=== PATIENT | female | born 1935 | race Caucasian/White ===

== ENCOUNTER 2016-11-25 10:13 | Inpatient (IN) | payer MEDICARE, OTHER ==
[~2016-11-25] VITALS: Ht 160 cm; Wt 55.2 kg
[2016-11-25 10:15] VITALS: BP 137/72; PULSE 89; RESP 17; TEMP 98.2; O2SAT 100
[2016-11-25] MEDS ORDERED: METO100T PO (10:33)
[2016-11-25] MEDS ORDERED: ESOM1CAP16 PO (10:33)
[2016-11-25] MEDS ORDERED: XARE15TA PO (10:33)
[2016-11-25] MEDS ORDERED: METF500T PO (10:33)
[2016-11-25] MEDS ORDERED: SIMV40TA PO (10:33)
[2016-11-25] MEDS ORDERED: FURO40TA PO (10:33)
[2016-11-25] MEDS ORDERED: CART120C PO (10:33)
--- NOTE | 2016-11-25 10:52 | PD ---
HPI Chief Complaint: Respiratory Symptoms Time Seen by Provider: 10:27 Travel History International Travel<30 days: No Contact w/Intl Traveler<30days: No Traveled to known affect area: No History of Present Illness HPI 81yo F with PMH of afib on xarelto, ?CHF on furosemide, s/p pacemaker presents to the ED with increasing sob for the last few days. Pt also with increasing bilateral lower ext edema for few days. Takes furosemide 40mg daily. Pt has not had good appetite and has been having nonbloody diarrhea. Denies any fever , cough, chest pain, n/v, abdominal pain, focal weakness or numbness. 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 Pt was seen at [facility] on 11/17/16 and discharged from ED. PFSH Past Medical History Atrial Fibrillation: Yes Heart Rhythm Problems: Yes High Cholesterol: Yes Congestive Heart Failure: Yes Diabetes: Yes Patient Takes Glucophage: Yes Hypertension: Yes Past Surgical History Cardiac Surgery: Yes (pacemaker ) Cholecystectomy: Yes Hysterectomy: Yes Pacemaker: Yes Social History Alcohol Use: No Tobacco Use: No Substance Use: No Allergies-Medications (Allergen,Severity, Reaction): Coded Allergies: Ibuprofen (Verified Allergy, Severe, 11/25/16) Codeine (Verified Allergy, Mild, 11/25/16) Reported Meds & Prescriptions Reported Meds & Active Scripts Active Reported Simvastatin 40 Mg Tab 40 Mg PO HS Xarelto (Rivaroxaban) 15 Mg Tab 15 Mg PO DAILY Cartia Xt (Diltiazem ER 24 HR) 120 Mg Caper 120 Mg PO DAILY Esomeprazole DR 40 Mg Capdr 40 Mg PO DAILY Metformin (Metformin HCl) 500 Mg Tab 500 Mg PO BIDPC With meals Furosemide 40 Mg Tab 40 Mg PO DAILY Metoprolol Tartrate 100 Mg Tab 100 Mg PO BID Review of Systems Except as stated in HPI: all other systems reviewed are Neg Physical Exam Narrative GENERAL: 81yo F in mild distress. SKIN: Focused skin assessment warm/dry. HEAD: Atraumatic. Normocephalic. EYES: Pupils equal and round. No scleral icterus. No injection or drainage. ENT: No nasal bleeding or discharge. Mucous membranes pink and moist. NECK: Trachea midline. No JVD. CARDIOVASCULAR: Regular rate and rhythm. No murmur appreciated. RESPIRATORY: + accessory muscle use. crackles in bilateral bases. GASTROINTESTINAL: Abdomen soft, non-tender, nondistended. MUSCULOSKELETAL: No obvious deformities. No clubbing. No cyanosis. +Bilateral lower ext edema. NEUROLOGICAL: Awake and alert. No obvious cranial nerve deficits. Motor grossly within normal limits. Normal speech. PSYCHIATRIC: Appropriate mood and affect; insight and judgment normal. Data Data Last Documented VS Vital Signs Date Time Temp Pulse Resp B/P Pulse Ox O2 Delivery O2 Flow Rate FiO2 11/25/16 11:04 95 Nasal Cannula 3 11/25/16 10:24 110 26 11/25/16 10:15 98.2 137/72 Orders Electrocardiogram (11/25/16 ) Complete Blood Count With Diff (11/25/16 10:47) Basic Metabolic Panel (Bmp) (11/25/16 10:47) B-Type Natriuretic Peptide (11/25/16 10:47) Act Partial Throm Time (Ptt) (11/25/16 10:47) Prothrombin Time / Inr (Pt) (11/25/16 10:47) Magnesium (Mg) (11/25/16 10:47) Ckmb (Isoenzyme) Profile (11/25/16 10:47) Troponin I (11/25/16 10:47) Arterial Blood Gas (Abg) (11/25/16 10:47) Urinalysis - C+S If Indicated (11/25/16 10:47) Iv Access Insert/Monitor (11/25/16 10:47) Ecg Monitoring (11/25/16 10:47) Oximetry (11/25/16 10:47) Oxygen Administration (11/25/16 10:47) Chest, Single Ap (11/25/16 10:47) Furosemide Inj (Lasix Inj) (11/25/16 11:00) Urinary Catheter Insert/Apply (11/25/16 12:53) Admit Order (Ed Use Only) (11/25/16 12:56) Admit To Inpatient (11/25/16 ) Vital Signs (Adult) Q4H (11/25/16 12:55) Activity Oob Ad [place] (11/25/16 12:55) Acquisitions Assistant / Telemetry .CONTINUOUS (11/25/16 12:55) Intake + Output HUMBERTO.QSHIFT (11/25/16 12:55) Diet Heart Healthy (11/25/16 Lunch) Sodium Chloride 0.9% Flush (Ns Flush) (11/25/16 13:00) Sodium Chloride 0.9% Flush (Ns Flush) (11/25/16 21:00) Scd Bilateral/Knee High HUMBERTO.BID (11/25/16 12:55) Alfredo Bilateral/Knee High HUMBERTO.QSHIFT (11/25/16 12:55) Naloxone Inj (Narcan Inj) (11/25/16 13:00) Inpatient Certification (11/25/16 ) Furosemide Inj (Lasix Inj) (11/26/16 09:00) Labs Laboratory Tests Test 11/25/16 11/25/16 11/25/16 11:00 11:35 12:00 White Blood Count 10.8 TH/MM3 Red Blood Count 4.07 MIL/MM3 Hemoglobin 10.9 GM/DL Hematocrit 35.1 % Mean Corpuscular Volume 86.3 FL Mean Corpuscular Hemoglobin 26.9 PG Mean Corpuscular Hemoglobin 31.1 % Concent Red Cell Distribution Width 18.3 % Platelet Count 276 TH/MM3 Mean Platelet Volume 10.1 FL Neutrophils (%) (Auto) 74.5 % Lymphocytes (%) (Auto) 12.7 % Monocytes (%) (Auto) 11.5 % Eosinophils (%) (Auto) 0.8 % Basophils (%) (Auto) 0.5 % Neutrophils # (Auto) 8.0 TH/MM3 Lymphocytes # (Auto) 1.4 TH/MM3 Monocytes # (Auto) 1.2 TH/MM3 Eosinophils # (Auto) 0.1 TH/MM3 Basophils # (Auto) 0.1 TH/MM3 CBC Comment DIFF FINAL Differential Comment Prothrombin Time 24.6 SEC Prothromb Time International 2.2 RATIO Ratio Activated Partial 41.2 SEC Thromboplast Time Sodium Level 138 MEQ/L Potassium Level 4.8 MEQ/L Chloride Level 101 MEQ/L Carbon Dioxide Level 26.4 MEQ/L Anion Gap 11 MEQ/L Blood Urea Nitrogen 33 MG/DL Creatinine 1.75 MG/DL Estimat Glomerular Filtration 28 ML/MIN Rate Random Glucose 114 MG/DL Calcium Level 8.8 MG/DL Magnesium Level 1.7 MG/DL Total Creatine Kinase 70 U/L Troponin I LESS THAN 0.02 NG/ML B-Type Natriuretic Peptide 683 PG/ML Blood Gas Puncture Site RT BRACHIAL Blood Gas Patient Temperature 98.6 Blood Gas HCO3 25 mmol/L Blood Gas Base Excess 1.5 mmol/L Blood Gas Oxygen Saturation 97 % Arterial Blood pH 7.45 Arterial Blood Partial 37 mmHg Pressure CO2 Arterial Blood Partial 120 mmHG Pressure O2 Arterial Blood Oxygen Content 13.4 Vol % Arterial Blood 2.0 % Carboxyhemoglobin Arterial Blood Methemoglobin 0.5 % Blood Gas Hemoglobin 9.7 G/DL Oxygen Delivery Device NASAL CANNULA Blood Gas Liter Flow 2 L/M Urine Color YELLOW Urine Turbidity CLEAR Urine pH 5.0 Urine Specific [place] 1.010 Urine Protein NEG mg/dL Urine Glucose (UA) NEG mg/dL Urine Ketones NEG mg/dL Urine Occult Blood TRACE Urine Nitrite NEG Urine Bilirubin NEG Urine Urobilinogen LESS THAN 2.0 MG/DL Urine Leukocyte Esterase SMALL Urine RBC 5 /hpf Urine WBC 2 /hpf Urine Squamous Epithelial 3 /hpf Cells Urine Bacteria RARE /hpf Urine Mucus FEW /lpf Microscopic Urinalysis Comment CULT NOT INDICATED MDM Medical Decision Making Medical Screen Exam Complete: Yes Emergency Medical Condition: Yes Interpretation(s) EKG: Afib at 97bpm. LAD. No ST segment elevation or depression. Differential Diagnosis CHF exacerbation vs. Pneumonia vs. ACS vs. COPD Narrative Course 81yo F with worsening sob and lower ext edema. Labs reviewed, no leukocytosis. BNP elevated at 683. BUN/creatinine elevated at 33/1.75. Troponin negative. UA showed small leukocyte. Culture not indicated. CXR showed cardiomegaly with pulmonary vascular congestion. Pt given oxygen and lasix 40mg IV and reevaluated at bedside. Pt is feeling better. Discussed with Dr. Juares and accepted for CHF exacerbation. Diagnosis Primary Impression: CHF exacerbation Qualified Code: I50.9 - Acute on chronic congestive heart failure, unspecified congestive heart failure type Admitting Information Admitting Physician Requests: Marcella Neely DO November 25, 2016 10:51
[2016-11-25] MEDS ORDERED: FUROSEMIDE 40 MG/4 ML VIAL IVP ONE (11:00)
--- NOTE | 2016-11-25 11:05 | RADRPT ---
EXAM DATE/TIME: 11/25/2016 11:01 [place] COMPARISON: No previous studies available for comparison. INDICATIONS : Shortness of breath. MEDICAL HISTORY : Congestive heart failure. Atrial fibrillation. SURGICAL HISTORY : Pacemaker. ENCOUNTER: Initial ACUITY: 1 day PAIN SCORE: 0/10 LOCATION: Bilateral chest FINDINGS: A single view of the chest demonstrates the lungs to be symmetrically aerated without evidence of mas s, infiltrate or effusion. Heart enlarged. There is pulmonary vascular congestion. Left-sided pacema ker with single intact lead. The cardiomediastinal contours are unremarkable. Osseous structures are intact. CONCLUSION: Cardiomegaly with pulmonary vascular congestion. Francisco Bear MD on November 25, 2016 at 11:02 Board Certified Radiologist. This report was verified electronically.
[2016-11-25 11:27] LABS: BASOPHIL # 0.1 TH/MM3 (0-0.2); BASOPHIL % 0.5 % (0.0-2.0); EOSINOPHIL # 0.1 TH/MM3 (0-0.4); EOSINOPHIL % 0.8 % (0.0-4.0); HEMATOCRIT 35.1 % (35.0-46.0); HEMO FLAGS DIFF FINAL; LYMPH % 12.7 % (9.0-44.0); LYMPHOCYTE # 1.4 TH/MM3 (1.0-4.8); MEAN CELL VOLUME 86.3 FL (80.0-100.0); MEAN CORPUSCULAR HEMOGLOBIN 26.9 PG (27.0-34.0); MEAN CORPUSCULAR HGB CONC 31.1 % (32.0-36.0); MONO % 11.5 % (0.0-8.0); NEUT % 74.5 % (16.0-70.0); PLATELET COUNT 276 TH/MM3 (150-450); RED BLOOD COUNT 4.07 MIL/MM3 (4.00-5.30); RED CELL DISTRIBUTION WIDTH 18.3 % (11.6-17.2); WHITE BLOOD COUNT 10.8 TH/MM3 (4.0-11.0)
[2016-11-25 11:36] LABS: APTT (PATIENT) 41.2 SEC (24.3-30.1); INTERNATIONAL NORMALIZED RATIO 2.2 RATIO; PROTHROMBIN TIME - PATIENT 24.6 SEC (9.8-11.6)
[2016-11-25 11:55] LABS: ANION GAP 11 MEQ/L (5-15); BICARBONATE 26.4 MEQ/L (21.0-32.0); BLOOD UREA NITROGEN 33 MG/DL (7-18); CHLORIDE 101 MEQ/L (98-107); GLOMERULAR FILTRATION RATE 28 ML/MIN (>89); MAGNESIUM 1.7 MG/DL (1.5-2.5); SODIUM (NA) 138 MEQ/L (136-145)
[2016-11-25 11:56] LABS: CREATINE KINASE 70 U/L (26-192); POTASSIUM 4.8 MEQ/L (3.5-5.1)
[2016-11-25 11:58] LABS: BLOOD GAS BASE EXCESS 1.5 mmol/L (-2-2); BLOOD GAS HCO3 25 mmol/L (22-26); BLOOD GAS METHEMOGLOBIN 0.5 % (0-2); BLOOD GAS O2 HGB SATURATION 97 % (90-100); BLOOD GAS OXYGEN CONTENT 13.4 Vol % (12.0-20.0); BLOOD GAS PCO2 37 mmHg (38-42); BLOOD GAS PO2 120 mmHG (61-120); BLOOD GAS TOTAL HGB 9.7 G/DL (12.0-16.0); TEMP CORR TO 98.6
[2016-11-25 11:59] LABS: CRITICAL VALUE NO; DRAW SITE RT BRACHIAL; LITER FLOW 2 L/M; NUMBER OF ARTERIAL PUNCTURES 1; OXYGEN DEVICE NASAL CANNULA; STAT YES
[2016-11-25 12:41] LABS: BACTERIA, URINE RARE /hpf; BLOOD, URINE TRACE (NEG); COMMENT (UR) CULT NOT INDICATED; CULTURE IF INDICATED CULT NOT INDICATED; GLUCOSE,URINE NEG (NEG); KETONE, URINE NEG (NEG); MUCUS URINE FEW /lpf (OCC); NITRITE,URINE NEG (NEG); SQUAMOUS EPITHELIAL CELL URINE 3 /hpf (0-5); URINE COLOR YELLOW (YELLW/STRAW)
[2016-11-25] MEDS ORDERED: SODIUM CHLORIDE 0.9% FLUSH 10 ML FLUSH IV FLUSH PRN (13:00)
[2016-11-25] MEDS ORDERED: NALOXONE HCL 0.4 MG/ML AMP IV PRN (13:00)
--- NOTE | 2016-11-25 13:26 | EKG ---
Date Performed: 11/25/2016 Time Performed: 10:25:41 PTAGE: 81 years EKG: ATRIAL FIBRILLATION LOW QRS VOLTAGE POSSIBLE RIGHT VENTRICULAR CONDUCTION DELAY POSSIBLE AN TERIOR MYOCARDIAL INFARCTION INFERIOR MYOCARDIAL INFARCTION ABNORMAL ECG INTERPRETATION BASED ON A DE FAULT AGE OF 40 YEARS NO PREVIOUS TRACING DOCTOR: Sharon Cole Interpretating Date/Time 11/25/2016 13:24:54
[2016-11-25 13:58] VITALS: BP 138/76; PULSE 95; RESP 20; O2SAT 100
[2016-11-25 14:44] VITALS: O2SAT 94
[2016-11-25 14:52] VITALS: BP 119/81; PULSE 67; RESP 17; TEMP 97.4; O2SAT 94
--- NOTE | 2016-11-25 17:08 | HHI.HP ---
, HPI Service [facility] Primary Care Physician Jovan Ramires MD Admission Diagnosis CHF exacerbation Diagnoses: Chief Complaint: Shortness of breath x 3 days Bilateral lower extremity edema Travel History International Travel<30 Days: No Contact w/Intl Traveler <30 Da: No Traveled to Known Affected Are: No History of Present Illness Ms. Sylvester is an 81-year-old female with a known medical history of atrial fibrillation status post pacemaker placement and on Xarelto, dyslipidemia, diabetes mellitus, hypertension and GERD who presented to the ED with complaints of worsening shortness of breath for several days and increasing bilateral lower extremity edema. Patient states that she had recently been treated with antibiotics for a UTI at the end of October and finished the prescription. Shortly after this on 11/17/16 she presented to [facility] ED for complaints of shoulder pain and increasing bilateral lower extremity edema. At that time, patient was not admitted and sent home same day. 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 Currently, patient is seen in room 1433, daughter at bedside. Patient states that shortness of breath has improved status post Lasix 40 mg IV x 1 in ED and being placed on 2L NC. Patient also denies any further urinary complaints since patient has finished antibiotic back in October. Denies any recent fever, chills, cough, shortness of breath, chest pain, nausea or vomiting. Denies any further shoulder pain. Review of Systems Cardiovascular: COMPLAINS OF: Dyspnea on Exertion, Lower Extremity Edema Except as stated in HPI: all other systems reviewed are Neg Past Family Social History Past Medical History Atrial fibrillation, on anticoagulation and status post pacemaker placement in 2011 Type 2 diabetes mellitus Hypertension GERD Dyslipidemia Past Surgical History Pacemaker placement 2011 Carpal tunnel surgery Cholecystectomy Partial hysterectomy Reported Medications Active Reported Simvastatin 40 Mg Tab 40 Mg PO HS Xarelto (Rivaroxaban) 15 Mg Tab 15 Mg PO DAILY Cartia Xt (Diltiazem ER 24 HR) 120 Mg Caper 120 Mg PO DAILY Esomeprazole DR 40 Mg Capdr 40 Mg PO DAILY Metformin (Metformin HCl) 500 Mg Tab 500 Mg PO BIDPC With meals Furosemide 40 Mg Tab 40 Mg PO DAILY Metoprolol Tartrate 100 Mg Tab 100 Mg PO BID Allergies: Coded Allergies: Ibuprofen (Verified Allergy, Severe, 11/25/16) Codeine (Verified Allergy, Mild, 11/25/16) Active Ordered Medications Current Medications Medications (Trade) Dose Ordered Sig/Kalyn Route Start Time Stop Time Status Last Admin (NS Flush) 2 ml UNSCH PRN IV FLUSH 11/25/16 13:00 (NS Flush) 2 ml BID IV FLUSH 11/25/16 21:00 (Narcan Inj) 0.4 mg UNSCH PRN IV 11/25/16 13:00 (Lasix Inj) 40 mg DAILY IV PUSH 11/26/16 09:00 (KCl) 20 meq DAILY PO 11/26/16 09:00 (Pneumovax-23 Inj) 25 mcg ONCE ONCE IM 11/26/16 10:00 11/26/16 10:01 Family History Patient's maternal and paternal medical history significant for cardiovascular disease and diabetes mellitus. Social History Patient lives at home. Does admit to quitting smoking in 2003 after intermittently smoking 1 PPD since the age of 24. Denies alcohol use. Denies any illicit drug use. Physical Exam Vital Signs Vital Signs Date Time Temp Pulse Resp B/P Pulse Ox O2 Delivery O2 Flow Rate FiO2 11/25/16 14:52 97.4 67 17 119/81 94 Automatic Cuff 11/25/16 14:44 Nasal Cannula 2.00 11/25/16 13:58 95 20 138/76 100 Nasal Cannula 3 11/25/16 11:04 95 Nasal Cannula 3 11/25/16 10:24 110 26 99 Nasal Cannula 2 11/25/16 10:15 98.2 89 17 137/72 100 Physical Exam GENERAL: Well-nourished, well-developed patient, in no apparent distress on 2 L NC. SKIN: No rashes, ecchymoses or lesions. Warm and dry. HEENT: Atraumatic. Normocephalic. No temporal or scalp tenderness. Pupils equal round and reactive. Extraocular motions intact. No scleral icterus. No injection or drainage. Nose without bleeding. Throat without erythema, tonsillar hypertrophy or exudate. Uvula midline. Airway patent. Neck supple. Mild JVD noted on the right. Trachea midline. CARDIOVASCULAR: Atrial fibrillation rhythm noted, controlled. No murmur appreciated. RESPIRATORY: Inspiratory wheezing noted throughout entire lung silva, both on anterior and posterior auscultation. Breath sounds equal bilaterally. GASTROINTESTINAL: Abdomen soft, non-tender, nondistended. No guarding. : FC in place, clear yellow urine noted in Bone bag. MUSCULOSKELETAL: Bilateral 2+ nonpitting lower extremity edema noted. Extremities without clubbing or cyanosis. NEUROLOGICAL: Awake and alert. Cranial nerves II through XII intact. Motor and sensory grossly within normal limits. Normal speech. Laboratory Laboratory Tests Test 11/25/16 11/25/16 11/25/16 11:00 11:35 12:00 White Blood Count 10.8 Red Blood Count 4.07 Hemoglobin 10.9 Hematocrit 35.1 Mean Corpuscular Volume 86.3 Mean Corpuscular Hemoglobin 26.9 Mean Corpuscular Hemoglobin 31.1 Concent Red Cell Distribution Width 18.3 Platelet Count 276 Mean Platelet Volume 10.1 Neutrophils (%) (Auto) 74.5 Lymphocytes (%) (Auto) 12.7 Monocytes (%) (Auto) 11.5 Eosinophils (%) (Auto) 0.8 Basophils (%) (Auto) 0.5 Neutrophils # (Auto) 8.0 Lymphocytes # (Auto) 1.4 Monocytes # (Auto) 1.2 Eosinophils # (Auto) 0.1 Basophils # (Auto) 0.1 CBC Comment DIFF FINAL Differential Comment Prothrombin Time 24.6 Prothromb Time International 2.2 Ratio Activated Partial 41.2 Thromboplast Time Sodium Level 138 Potassium Level 4.8 Chloride Level 101 Carbon Dioxide Level 26.4 Anion Gap 11 Blood Urea Nitrogen 33 Creatinine 1.75 Estimat Glomerular Filtration 28 Rate Random Glucose 114 Calcium Level 8.8 Magnesium Level 1.7 Total Creatine Kinase 70 Troponin I LESS THAN 0.02 B-Type Natriuretic Peptide 683 Blood Gas Puncture Site RT BRACHIAL Blood Gas Patient Temperature 98.6 Blood Gas HCO3 25 Blood Gas Base Excess 1.5 Blood Gas Oxygen Saturation 97 Arterial Blood pH 7.45 Arterial Blood Partial 37 Pressure CO2 Arterial Blood Partial 120 Pressure O2 Arterial Blood Oxygen Content 13.4 Arterial Blood 2.0 Carboxyhemoglobin Arterial Blood Methemoglobin 0.5 Blood Gas Hemoglobin 9.7 Oxygen Delivery Device NASAL CANNULA Blood Gas Liter Flow 2 Urine Color YELLOW Urine Turbidity CLEAR Urine pH 5.0 Urine Specific [place] 1.010 Urine Protein NEG Urine Glucose (UA) NEG Urine Ketones NEG Urine Occult Blood TRACE Urine Nitrite NEG Urine Bilirubin NEG Urine Urobilinogen LESS THAN 2.0 Urine Leukocyte Esterase SMALL Urine RBC 5 Urine WBC 2 Urine Squamous Epithelial 3 Cells Urine Bacteria RARE Urine Mucus FEW Microscopic Urinalysis Comment CULT NOT INDICATED Result Diagram: 11/25/16 1100 11/25/16 1100 Imaging Last Impressions Chest X-Ray 11/25/16 1047 Signed Impressions: Service Date/Time: Friday, November 25, 2016 11:01 - CONCLUSION: Cardiomegaly with pulmonary vascular congestion. Francisco Bear MD Assessment and Plan Assessment and Plan Ms. Sylvester is an 81-year-old female with a known medical history of atrial fibrillation status post pacemaker placement and on Xarelto, dyslipidemia, and GERD who presented to the ED with complaints of worsening shortness of breath for several days and increasing bilateral lower extremity edema. Congestive heart failure Chronic atrial fibrillation on anticoagulation and status post pacemaker placement 2011 - Chest x-ray images reviewed by me, cardiomegaly with pulmonary vascular congestion noted. - BNP 683 on presentation. - Lasix 40 mg IV x 1 given in ED. Close intake and output monitoring. FC ordered and inserted. - Continue on Lasix 40 mg IV q12hr. Monitor Cr levels - Monitor electrolytes. Continue potassium 20 meq PO daily. - Monitor fluid PO intake. Fluid restriction 1,[address] on heart healthy diet, limit sodium to 2 g daily. - ECHO ordered. Await results. - Cardiology consulted, appreciate input. Patient does not follow a inside plant supervisor outpatient. - Resume home medications as indicated. - Monitor telemetry closely. Normocytic, hypochromic anemia - Hemoglobin 10.8/Hematocrit 35.1. Monitor. H&H in am. Acute kidney injury possibly secondary to congestive heart failure vs recent urinary tract infection, no known hx of CKD reported - Creatinine 1.75 on presentation. Baseline unknown - UA not significant for UTI. Patient currently asymptomatic. - Monitor creatinine. Type 2 Diabetes Mellitus - Hold metformin at this time due to increased creatinine. Will monitor. - Place patient on sliding scale. ACCU checks ACHS. - Monitor closely. Dyspepsia: Resume home PPI. DVT prophylaxis: SCDs/TEDs. Continue Xarelto. Written by Zakia Dias, acting as scribe for Dr. Juares on 11/25/16 at 17:06. This note was transcribed by scribe Zakia Bearn. I, Dr. Margy Juares personally performed the history, physical exam, and medical decision making; and confirmed the accuracy of the information in the transcribed note. Authenticated by Dr. Margy Juares on 11/25/16 at 17:06. Code Status Full code Discussed Condition With Patient and daughter Physician Certification 2 Midnight Certification Type: Admission for Inpatient Services Order for Inpatient Services The services are ordered in accordance with Medicare regulations or non- Medicare payer requirements, as applicable. In the case of services not specified as inpatient-only, they are appropriately provided as inpatient services in accordance with the 2-midnight benchmark. Estimated LOS (days): 2 days is the estimated time the patient will need to remain in the hospital, assuming treatment plan goals are met and no additional complications. Post-Hospital Plan: Not yet determined Zakia Dias November 25, 2016 17:08 Margy Juares MD November 25, 2016 18:37
[2016-11-25] MEDS ORDERED: GLUCAGON 1 MG/ML VIAL OTHER PRN (17:30)
[2016-11-25] MEDS ORDERED: DEXTROSE 50% IN WATER 50 ML VIAL(D50) IV PUSH PRN (17:30)
[2016-11-25 19:25] VITALS: PULSE 106
[2016-11-25 20:00] VITALS: BP 100/60; PULSE 109; PULSE 84; RESP 20; TEMP 97.9; O2SAT 96
[2016-11-25] MEDS: INSULIN ASPART SUPPLEMENTAL SCALE SQ SCH (21:00)
[2016-11-25] MEDS: METOPROLOL TARTRATE 100 MG TAB PO SCH (21:05)
[2016-11-25] MEDS: PRAVASTATIN SOD 80 MG TAB PO SCH (21:05)
[2016-11-25] MEDS: SODIUM CHLORIDE 0.9% FLUSH 10 ML FLUSH IV FLUSH SCH (21:05)
[2016-11-26] VITALS (7 sets, daily range): BP systolic 108–127; BP diastolic 63–80; PULSE 88–125; RESP 18–22; TEMP 97.3–99.2; O2SAT 95–100
[2016-11-26] MEDS: INSULIN ASPART SUPPLEMENTAL SCALE SQ SCH ×4 (05:37→21:00)
[2016-11-26 08:47] LABS: HEMATOCRIT 34.1 % (35.0-46.0); REVIEW FLAG FINAL
[2016-11-26] MEDS: POTASSIUM CHLORIDE 20 MEQ CONTROLLED RELEASE TAB PO SCH (08:52)
[2016-11-26] MEDS: FUROSEMIDE 40 MG/4 ML VIAL IV PUSH SCH ×2 (08:52→21:49)
[2016-11-26] MEDS: RIVAROXABAN 15 MG TAB PO SCH (08:52)
[2016-11-26] MEDS: DILTIAZEM-CD 120 MG CAP ER PO SCH (08:52)
[2016-11-26] MEDS: METOPROLOL TARTRATE 100 MG TAB PO SCH ×2 (08:53→21:49)
[2016-11-26] MEDS: SODIUM CHLORIDE 0.9% FLUSH 10 ML FLUSH IV FLUSH SCH ×2 (08:53→21:50)
[2016-11-26] MEDS: PANTOPRAZOLE SOD 40 MG DELAYED RELEASE TAB PO SCH (08:53)
[2016-11-26 08:57] LABS: BICARBONATE 29.3 MEQ/L (21.0-32.0); POTASSIUM 3.8 MEQ/L (3.5-5.1)
[2016-11-26] MEDS ORDERED: FUROSEMIDE 40 MG/4 ML VIAL IV PUSH SCH (09:00)
[2016-11-26] MEDS ORDERED: PNEUMOCOCCAL POLYVALENT INJ 25 MCG/0.5 ML SYR IM ONE (10:00)
--- NOTE | 2016-11-26 12:27 | MB ---
cc: MANSI YUSUF M.D. DATE OF CONSULTATION: 11/26/2016 REASON FOR CONSULTATION: HISTORY OF PRESENT ILLNESS: Liudmila is a very pleasant 81 year-old lady with history of A-fib and pacemaker placement, placed by Dr. Roblero, however, the patient states that she no longer follows up with Dr. Roblero due to her current insurance status. She presents with shortness of breath for the last few days, as well as bilateral lower extremity edema, also anorexia and diarrhea. The patient otherwise denies any fever, chills, cough, GI or bleeding, paroxysmal nocturnal dyspnea, orthopnea, syncope or dizziness. PAST MEDICAL HISTORY: As per the history of present illness. 1. History of hyperlipidemia. 2. Diabetes. 3. Hypertension. 4. Cholecystectomy. 5. Hysterectomy. SOCIAL HISTORY: Denies tobacco or alcohol use. ALLERGIES: IBUPROFEN CODEINE MEDICATIONS PRIOR TO ADMISSION: 1. Simvastatin 40 hs. 2. Xarelto. 3. Cartia 120 daily. 4. Esomeprazole 40 daily. 5. Metformin 6. Furosemide 40 daily. 7. Metoprolol 100 b.i.d. MEDICATIONS IN THE HOSPITAL: 1. Potassium 20 daily. 2. Cardizem 120 daily. 3. Xarelto 15 daily. 4. Pantoprazole 40 daily. 5. Furosemide 40 IV q12 hours. 6. Toprol 100 b.i.d. 7. Pravastatin 80 hs. PHYSICAL EXAMINATION VITAL SIGNS: Blood pressure 125/68, pulse 80, respiratory rate 18, temperature 97.3. General: She is alert and oriented in no acute dsitress. Neck: Supple. No JVD. No bruits. Cardiovascular: S1-S2. No murmurs, rubs, or gallops. Lungs: Decreased air movement at the bases. Abdomen: Soft, nontender, nondistended. Positive bowel sounds. Extremities: 1+ lower extremity edema. LABORATORY DATA White count 10.8, hemoglobin 10.9, hematocrit 35.1, platelet count 276. Sodium 139, potassium 3.8, chloride 101, bicarb 29.3, BUN 31, creatinine 1.54. Troponin is less than 0.02. BNP is 683. INR is 2.2. Blood gas, pH 7.45, PCO2 37, PO2 120 on two liters. Chest x-ray: Cardiomegaly, pulmonary vascular congestion. EKG: A-fib at a rate of 97 beats per minute. Anteroseptal Q-waves, late R-wave transition, left anterior fascicular block. DIAGNOSIS 1. Congestive heart failure. 2. Decompensated congestive heart failure. 3. A-fib. 4. Left anterior fascicular block. 5. Chronic renal insufficiency. 6. Acute renal failure 7. Anemia. 8. Hyperlipidemia. DISCUSSION At this point in time agree with her Lasix regimen. Check daily BNP. Follow up 2-D echocardiogram. Continue Xarelto for her A-fib. She appeared to be on optimal medical therapy given she is on high dose statin, beta-tiffanie, Lasix and Xarelto. ANIA inhibitor is felt to be due to acute renal failure. Continue to monitor on telemetry and check daily BNP, BMP. MD GUILLAUME Herrera/BERNARDINO /10:27 AM /12:09 PM
--- NOTE | 2016-11-26 13:53 | EC ---
Study Study Date:11/26/2016 STUDY CONCLUSIONS SUMMARY - Left ventricle: The cavity size was normal. Wall thickness was normal. Systolic function was moderately reduced. The estimated ejection fraction was in the range of 35% to 40%. Diffuse hypokinesis. - Aortic valve: Transvalvular velocity was within the normal range. There was mild stenosis. Valve area: 0.85cm^2 (Vmax). - Mitral valve: Mildly calcified annulus. Mild regurgitation. - Left atrium: The atrium was moderately dilated. - Right ventricle: The cavity size was mildly dilated. Wall thickness was normal. - Right atrium: The atrium was moderately dilated. - Tricuspid valve: Moderate-severe regurgitation. If LV function is below 40, please consider prescribing an ACEI or ARB or document rationale for non-use. PROCEDURE DATA STUDY STATUS: Elective. Procedure: Transthoracic echocardiography. Image quality was adequate. Scanning was performed from the parasternal, apical, and subcostal acoustic windows. Study completion: The patient tolerated the procedure well. Transthoracic echocardiography. M-mode, complete 2D, complete spectral Doppler, and color Doppler. Height: Height: 63in. Weight: Weight: 120.7lb. Body mass index: BMI: 21.4kg/m^2. Body surface area: BSA: 1.56m^2. Patient status: Inpatient. CARDIAC ANATOMY LEFT VENTRICLE: The cavity size was normal. Wall thickness was normal. Systolic function was moderately reduced. The estimated ejection fraction was in the range of 35% to 40%. Diffuse hypokinesis. AORTIC VALVE: Trileaflet; moderately thickened, severely calcified leaflets. Doppler: Transvalvular velocity was within the normal range. There was mild stenosis. No regurgitation. Valve area: 0.85cm^2 (Vmax). Indexed valve area: 0.54cm^2/m^2 (Vmax). Peak gradient: 12mm Hg (S). AORTA: Aortic root: The aortic root was normal in size. MITRAL VALVE: Mildly calcified annulus. Doppler: Transvalvular velocity was within the normal range. There was no evidence for stenosis. Mild regurgitation. LEFT ATRIUM: The atrium was moderately dilated. RIGHT VENTRICLE: The cavity size was mildly dilated. Wall thickness was normal. Pacer wire or catheter noted in right ventricle. PULMONIC VALVE: Doppler: Transvalvular velocity was within the normal range. There was no evidence for stenosis. No regurgitation. TRICUSPID VALVE: Structurally normal valve. Doppler: Transvalvular velocity was within the normal range. Moderate-severe regurgitation. PULMONARY ARTERY: The main pulmonary artery was normal-sized. Systolic pressure was within the normal range. RIGHT ATRIUM: The atrium was moderately dilated. Pacer wire or catheter noted in right atrium. PERICARDIUM: There was no pericardial effusion. SYSTEMIC VEINS: Inferior vena cava: The vessel was normal in size. Patient weight: 120.7lb _Ejection fraction:_ 65-75% _Fractional shortening:_ 32% up to 5Kg 5-11.5Kg 11.6-22.9Kg 23-45Kg 45-57Kg Aortic Root 7-13 <17 13-22 17-27 17-27 LA diam 6-13 <23 24-38 33-47 37-40 RVID 10-17 7-15 7-15 7-18 8-17 LVIDd 12-22 <32 24-38 33-47 37-40 LVPW 2-4 3-6 5-7 6-8 7-8 IVS 2-4 3-6 5-7 6-8 7-8 BASIC MEASUREMENTS ADULT NORMAL Left ventricle LV internal dimension, ED, chordal *38.1 mm 43-52 level, PLAX LV internal dimension, ES, chordal 34.2 mm 23-38 level, PLAX Fractional shortening, chordal level, *10 % >29 PLAX LV posterior wall thickness, ED 10.3 mm IVS/LVPW ratio, ED 0.98 <1.3 Ventricular septum Septal thickness, ED 10.1 mm Aortic valve Leaflet separation *12 mm 15-26 Right ventricle RV internal dimension, ED, PLAX 29.3 mm 19-38 BASIC MEASUREMENTS ADULT NORMAL Aortic valve Leaflet separation *12 mm 15-26 Aorta Root diameter, ED 23 mm 20-37 Left atrium Anterior-posterior dimension, ES *48 mm 19-40 Anterior-posterior dimension index, ES *3.08 cm/m^2 <2.2 LA/aortic root ratio 2.09 DOPPLER MEASUREMENTS ADULT NORMAL Main pulmonary artery Pressure, S 29 mm Hg =30 Aortic valve Peak velocity, S 170 cm/s Peak gradient, S 12 mm Hg Valve area, Vmax 0.85 cm^2 Valve area index, Vmax 0.54 cm^2/m^2 Mitral valve Maximal regurgitant velocity 303 cm/s Tricuspid valve Regurgitant peak velocity 200 cm/s Peak RV-RA gradient, S 16 mm Hg Maximal regurgitant velocity 200 cm/s Systemic veins Estimated CVP 10 mm Hg Right ventricle RV pressure, S *32 mm Hg <30 Pulmonic valve Peak velocity, S 89.6 cm/s LEGEND: Mean values are shown as u=mean value. Asterisk (*) garcia values outside specified normal range. Prepared and signed by Franco Dang [id number]
--- NOTE | 2016-11-26 16:40 | HHI.PR ---
Subjective Remarks Pt tells me that her breathing is much improved. denies any CP/N/V no other concerns today Objective Vitals Vital Signs Date Time Temp Pulse Resp B/P Pulse Ox O2 Delivery O2 Flow Rate FiO2 11/26/16 12:00 97.5 98 18 127/69 99 11/26/16 09:00 96 Nasal Cannula 11/26/16 08:00 97.3 88 18 125/68 100 11/26/16 04:00 Nasal Cannula 2.00 11/26/16 04:00 99.2 102 18 118/66 100 11/26/16 00:00 Nasal Cannula 2.00 11/26/16 00:00 97.5 103 18 111/63 100 11/25/16 20:00 Nasal Cannula 2.00 11/25/16 20:00 97.9 109 20 100/60 96 11/25/16 20:00 84 11/25/16 19:25 106 I/O 11/25/16 11/25/16 11/25/16 11/26/16 11/26/16 11/26/16 07:00 15:00 23:00 07:00 15:00 23:00 Intake Total 240 ml Output Total 200 ml 600 ml 300 ml Balance -200 ml -600 ml -60 ml Intake Oral 240 ml Output Urine Total 200 ml 600 ml 300 ml # Voids 1 1 Result Diagram: 11/26/16 0728 11/26/16 0728 Imaging Last Impressions Chest X-Ray 11/25/16 1047 Signed Impressions: Service Date/Time: Friday, November 25, 2016 11:01 - CONCLUSION: Cardiomegaly with pulmonary vascular congestion. Francisco Bear MD Objective Remarks GENERAL: Well-nourished, well-developed patient, in no apparent distress on 2 L NC. CARDIOVASCULAR: Atrial fibrillation rhythm noted, controlled. No murmur appreciated. RESPIRATORY: Inspiratory wheezing noted throughout entire lung silva, both on anterior and posterior auscultation. Breath sounds equal bilaterally. GASTROINTESTINAL: Abdomen soft, non-tender, nondistended. No guarding. : FC in place, clear yellow urine noted in Bone bag. MUSCULOSKELETAL: Bilateral 1+ nonpitting lower extremity edema noted. Extremities without clubbing or cyanosis. NEUROLOGICAL: Awake and alert. Cranial nerves II through XII intact. Motor and sensory grossly within normal limits. Normal speech. A/P Assessment and Plan Congestive heart failure Chronic atrial fibrillation on anticoagulation and status post pacemaker placement 2011 - Chest x-ray images showing cardiomegaly with pulmonary vascular congestion noted. - BNP 683 on presentation. - Lasix 40 mg IV x 1 given in ED. Close intake and output monitoring. FC ordered and inserted. - Continue on Lasix 40 mg IV q12hr. Monitor Cr levels - Monitor electrolytes. Continue potassium 20 meq PO daily. - Monitor fluid PO intake. Fluid restriction 1,500 ml daily. on heart healthy diet, limit sodium to 2 g daily. - ECHO shows EF 35-40% w diffuse hypokynesis. - Cardiology following and agrees w management. ANIA-inh held due to elevated Cr. Normocytic, hypochromic anemia - Hemoglobin 10.8/Hematocrit 35.1 on admission and stable. Acute kidney injury possibly secondary to congestive heart failure vs recent urinary tract infection, no known hx of CKD reported - Creatinine 1.75 on presentation. Baseline unknown. down to 1.54 today - UA not significant for UTI. Patient currently asymptomatic. - Monitor creatinine. Type 2 Diabetes Mellitus - Hold metformin at this time due to increased creatinine. Will monitor. - patient on sliding scale. ACCU checks ACHS. - Monitor closely. Dyspepsia: on home PPI. DVT prophylaxis: SCDs/TEDs. Continue Xarelto. Discharge Planning anticipate d/c in 1-2 days Margy Juares MD November 26, 2016 16:40
[2016-11-26] MEDS: PRAVASTATIN SOD 80 MG TAB PO SCH (21:49)
[2016-11-27] VITALS (8 sets, daily range): BP systolic 104–121; BP diastolic 63–81; PULSE 64–132; RESP 18–22; TEMP 97.2–97.6; O2SAT 91–100
[2016-11-27] MEDS: INSULIN ASPART SUPPLEMENTAL SCALE SQ SCH ×4 (06:22→21:00)
[2016-11-27 07:36] LABS: BICARBONATE 31.6 MEQ/L (21.0-32.0); POTASSIUM 3.6 MEQ/L (3.5-5.1)
[2016-11-27] MEDS: DILTIAZEM-CD 120 MG CAP ER PO SCH (09:33)
[2016-11-27] MEDS: METOPROLOL TARTRATE 100 MG TAB PO SCH ×2 (09:33→22:23)
[2016-11-27] MEDS: PANTOPRAZOLE SOD 40 MG DELAYED RELEASE TAB PO SCH (09:33)
[2016-11-27] MEDS: POTASSIUM CHLORIDE 20 MEQ CONTROLLED RELEASE TAB PO SCH (09:33)
[2016-11-27] MEDS: RIVAROXABAN 15 MG TAB PO SCH (09:33)
[2016-11-27] MEDS: FUROSEMIDE 40 MG/4 ML VIAL IV PUSH SCH ×2 (09:34→22:22)
[2016-11-27] MEDS: SODIUM CHLORIDE 0.9% FLUSH 10 ML FLUSH IV FLUSH SCH ×2 (09:34→22:23)
--- NOTE | 2016-11-27 14:28 | PD.CARD.PN ---
Subjective Subjective Remarks feels better Objective Vital Signs / I&O Vital Signs Date Time Temp Pulse Resp B/P Pulse Ox O2 Delivery O2 Flow Rate FiO2 11/27/16 08:00 97.2 88 18 120/68 96 11/27/16 08:00 Nasal Cannula 2.00 11/27/16 04:00 97.6 83 20 104/68 98 11/27/16 00:00 97.4 86 22 118/70 97 11/26/16 20:00 98.0 125 22 108/80 95 11/26/16 20:00 Nasal Cannula 2.00 11/26/16 19:52 119 11/26/16 16:00 97.4 95 18 126/71 99 I/O 11/26/16 11/26/16 11/26/16 11/27/16 11/27/16 11/27/16 07:00 15:00 23:00 07:00 15:00 23:00 Intake Total 720 ml 120 ml 100 ml Output Total 750 ml 250 ml 550 ml Balance -30 ml -130 ml -450 ml Intake Oral 720 ml 120 ml 100 ml Output Urine Total 750 ml 250 ml 550 ml # Bowel Movements 1 1 0 Physical Exam GENERAL: SKIN: Warm and dry. HEAD: Normocephalic. EYES: No scleral icterus. No injection or drainage. NECK: Supple, trachea midline. No JVD or lymphadenopathy. CARDIOVASCULAR: Regular rate and rhythm without murmurs, gallops, or rubs. RESPIRATORY: Breath sounds equal bilaterally. No accessory muscle use. GASTROINTESTINAL: Abdomen soft, non-tender, nondistended. MUSCULOSKELETAL: No cyanosis, or edema. BACK: Nontender without obvious deformity. No CVA tenderness. Laboratory Laboratory Tests Test 11/27/16 06:17 Sodium Level 140 MEQ/L Potassium Level 3.6 MEQ/L Chloride Level 101 MEQ/L Carbon Dioxide Level 31.6 MEQ/L Anion Gap 7 MEQ/L Blood Urea Nitrogen 26 MG/DL Creatinine 1.46 MG/DL Estimat Glomerular Filtration 34 ML/MIN Rate Random Glucose 102 MG/DL Calcium Level 8.1 MG/DL B-Type Natriuretic Peptide 643 PG/ML Assessment and Plan Problem List: (1) CHF exacerbation (2) Afib Assessment and Plan 1.) Chf - improving, continue diuresis, f/u bnp in am, yuni held due to arf and hypotension 2.) AFib - rate controlled on cardizem and lopressor, continue xarelto Problem Qualifiers (1) CHF exacerbation: Qualified Code: I50.9 - Acute on chronic congestive heart failure, unspecified congestive heart failure type Arturo Murillo MD November 27, 2016 14:28
--- NOTE | 2016-11-27 17:11 | HHI.PR ---
Subjective Remarks pt states she feels better. sad that she missed her daughter for lunch as she was asleep and no one woke her up. denies any chest pain, worsening SOB, nausea or vomiting. Objective Vitals Vital Signs Date Time Temp Pulse Resp B/P Pulse Ox O2 Delivery O2 Flow Rate FiO2 11/27/16 08:07 64 11/27/16 08:00 97.2 88 18 120/68 96 11/27/16 08:00 Nasal Cannula 2.00 11/27/16 04:00 97.6 83 20 104/68 98 11/27/16 00:00 97.4 86 22 118/70 97 11/26/16 20:00 98.0 125 22 108/80 95 11/26/16 20:00 Nasal Cannula 2.00 11/26/16 19:52 119 I/O 11/26/16 11/26/16 11/26/16 11/27/16 11/27/16 11/27/16 07:00 15:00 23:00 07:00 15:00 23:00 Intake Total 720 ml 120 ml 100 ml 120 ml Output Total 750 ml 250 ml 550 ml Balance -30 ml -130 ml -450 ml 120 ml Intake Oral 720 ml 120 ml 100 ml 120 ml Output Urine Total 750 ml 250 ml 550 ml # Bowel Movements 1 1 0 Result Diagram: 11/26/16 0728 11/27/16 0617 Imaging Last Impressions Chest X-Ray 11/25/16 1047 Signed Impressions: Service Date/Time: Friday, November 25, 2016 11:01 - CONCLUSION: Cardiomegaly with pulmonary vascular congestion. Francisco Bear MD Objective Remarks GENERAL: Well-nourished, well-developed patient, in no apparent distress on 2 L NC. CARDIOVASCULAR: Atrial fibrillation rhythm noted, controlled. No murmur appreciated. RESPIRATORY: Breath sounds equal bilaterally. no wheezing GASTROINTESTINAL: Abdomen soft, non-tender, nondistended. No guarding. : FC in place, clear yellow urine noted in Bone bag. MUSCULOSKELETAL: Bilateral 1+ nonpitting lower extremity edema noted. NEUROLOGICAL: Awake and alert. Motor and sensory grossly within normal limits. Normal speech. A/P Assessment and Plan Congestive heart failure Chronic atrial fibrillation on anticoagulation and status post pacemaker placement 2011 - Chest x-ray images showing cardiomegaly with pulmonary vascular congestion noted. - BNP 683 on presentation and 643 today. - Lasix 40 mg IV x 1 given in ED. Close intake and output monitoring. FC ordered and inserted. - Continue on Lasix 40 mg IV q12hr. Monitor Cr levels, switch to po lasix in AM - Monitor electrolytes. Continue potassium 20 meq PO daily. - Monitor fluid PO intake. Fluid restriction 1,500 ml daily. on heart healthy diet, limit sodium to 2 g daily. - ECHO shows EF 35-40% w diffuse hypokynesis. - Cardiology following and agrees w management. ANIA-inh held due to elevated Cr. Normocytic, hypochromic anemia - Hemoglobin 10.8/Hematocrit 35.1 on admission and stable. Acute kidney injury possibly secondary to congestive heart failure vs recent urinary tract infection, no known hx of CKD reported - Creatinine 1.75 on presentation. Baseline unknown. down to 1.46 today - UA not significant for UTI. Patient currently asymptomatic. - Monitor creatinine. Type 2 Diabetes Mellitus - Hold metformin at this time due to increased creatinine. Will monitor. - patient on sliding scale. ACCU checks ACHS. - Monitor closely. Dyspepsia: on home PPI. DVT prophylaxis: SCDs/TEDs. Continue Xarelto. Discharge Planning anticipate d/c tomorrow Margy Juares MD November 27, 2016 17:11
[2016-11-27] MEDS: PRAVASTATIN SOD 80 MG TAB PO SCH (22:23)
[2016-11-28] VITALS (8 sets, daily range): BP systolic 103–116; BP diastolic 53–80; PULSE 75–116; RESP 18–20; TEMP 97.2–97.5; O2SAT 92–100
[2016-11-28] MEDS: INSULIN ASPART SUPPLEMENTAL SCALE SQ SCH ×4 (05:55→21:00)
[2016-11-28 08:04] LABS: BICARBONATE 32.3 MEQ/L (21.0-32.0); POTASSIUM 3.8 MEQ/L (3.5-5.1)
[2016-11-28] MEDS: POTASSIUM CHLORIDE 20 MEQ CONTROLLED RELEASE TAB PO SCH (09:12)
[2016-11-28] MEDS: METOPROLOL TARTRATE 100 MG TAB PO SCH ×2 (09:12→21:06)
[2016-11-28] MEDS: FUROSEMIDE 40 MG TAB PO SCH ×2 (09:13→17:47)
[2016-11-28] MEDS: RIVAROXABAN 15 MG TAB PO SCH (09:13)
[2016-11-28] MEDS: PANTOPRAZOLE SOD 40 MG DELAYED RELEASE TAB PO SCH (09:13)
[2016-11-28] MEDS: DILTIAZEM-CD 120 MG CAP ER PO SCH (09:13)
[2016-11-28] MEDS: SODIUM CHLORIDE 0.9% FLUSH 10 ML FLUSH IV FLUSH SCH ×2 (09:13→21:06)
--- NOTE | 2016-11-28 12:17 | HHI.PR ---
Subjective Remarks Pt complains of right foot pain which started earlier this morning, she denies any trauma to the area. pressing of the dorsal aspect makes it worst. denies any trauma to the area. She also notes swelling only on the right foot. son and daughter in law at bedside. pt also states that currently she has no SOB but she still gets SOB w exertion. No CP/N/V Objective Vitals Vital Signs Date Time Temp Pulse Resp B/P Pulse Ox O2 Delivery O2 Flow Rate FiO2 11/28/16 08:01 116 11/28/16 08:00 Nasal Cannula 2.00 11/28/16 08:00 97.4 97 20 103/63 92 11/28/16 04:00 97.5 75 18 112/66 100 11/28/16 00:44 97.4 75 18 110/55 100 11/27/16 22:00 Nasal Cannula 2.00 11/27/16 20:38 97.2 84 18 107/63 100 11/27/16 20:27 132 11/27/16 16:00 97.4 88 20 121/80 91 I/O 11/27/16 11/27/16 11/27/16 11/28/16 11/28/16 11/28/16 07:00 15:00 23:00 07:00 15:00 23:00 Intake Total 100 ml 600 ml 4 ml Output Total 550 ml 475 ml 50 ml 400 ml Balance -450 ml 125 ml -46 ml -400 ml Intake Oral 100 ml 600 ml IV Total 4 ml Output Urine Total 550 ml 475 ml 50 ml 400 ml # Bowel Movements 0 1 0 Result Diagram: 11/26/16 0728 11/28/16 0712 Imaging Last Impressions Chest X-Ray 11/25/16 1047 Signed Impressions: Service Date/Time: Friday, November 25, 2016 11:01 - CONCLUSION: Cardiomegaly with pulmonary vascular congestion. Francisco Bear MD Objective Remarks GENERAL: Well-nourished, well-developed patient, in no apparent distress on 2 L NC. CARDIOVASCULAR: Atrial fibrillation rhythm noted, controlled. No murmur appreciated. RESPIRATORY: no wheezing, GASTROINTESTINAL: Abdomen soft, non-tender, nondistended. No guarding. : FC in place, clear yellow urine noted in Bone bag. MUSCULOSKELETAL: swelling over the extremities is much improved, however there is swelling on the right foot, pitting, tender to palpation on the dorsal aspect over the metatarsal area, sensation is intact. she is able to move and wiggle her toes. NEUROLOGICAL: Awake and alert. Motor and sensory grossly within normal limits. Normal speech. A/P Assessment and Plan Congestive heart failure Chronic atrial fibrillation on anticoagulation and status post pacemaker placement 2011 - Chest x-ray images showing cardiomegaly with pulmonary vascular congestion noted. - BNP 683 on presentation and 591 today. - Lasix 40 mg IV x 1 given in ED. Close intake and output monitoring. FC ordered and inserted. - on Lasix 40 mg po q12hr. Monitor Cr levels, son had some records from previous admission and creatinine on 10/31/16 was 1.56. Today Cr. 1.45 - Monitor electrolytes. Continue potassium 20 meq PO daily. - Monitor fluid PO intake. Fluid restriction 1,500 ml daily. on heart healthy diet, limit sodium to 2 g daily. - ECHO shows EF 35-40% w diffuse hypokynesis. - Cardiology following and agrees w management. will start low dose lisinopril as Cr is improved compared to the one in October. add lisinopril 5 mg po daily will order a walk test to see if she will require home oxygen Normocytic, hypochromic anemia - Hemoglobin 10.8/Hematocrit 35.1 on admission and stable. Acute kidney injury on chronic possibly secondary to congestive heart failure vs recent urinary tract infection, per records brought in by pt's son, she has CKD - Creatinine 1.75 down to 1.45 now. - UA not significant for UTI. Patient currently asymptomatic. - Monitor creatinine. Type 2 Diabetes Mellitus - Hold metformin at this time due to increased creatinine. Will monitor. - patient on sliding scale. ACCU checks ACHS. - Monitor closely. Right foot pain New complaint today. She is tender to palpation and has swelling. I have ordered an x-ray of the foot, podiatry consult in place. appreciate assistance PT consult to evaluate and make d/c recs. Dyspepsia: on home PPI. DVT prophylaxis: SCDs/TEDs. Continue Xarelto. Discharge Planning f/u foot x-ray and podiatry recs. awaiting final recs from cards PT consult pending and f/u on walk test Margy Juares MD November 28, 2016 12:17
--- NOTE | 2016-11-28 13:31 | RADRPT ---
EXAM DATE/TIME: 11/28/2016 13:05 [facility] COMPARISON: CHEST SINGLE AP, November 25, 2016, 11:01. INDICATIONS : Right foot pain & swelling with no known injury. MEDICAL HISTORY : Chronic obstructive pulmonary disease. Congestive heart failure. Arthritis. A-fib. SURGICAL HISTORY : Pacemaker. Cholecystectomy. Hysterectomy. ENCOUNTER: Initial ACUITY: 1 week PAIN SCORE: 8/10 LOCATION: Right lateral foot FINDINGS: Two view examination of the right foot demonstrates no soft tissue swelling, dislocation, or fracture . The calcaneus is intact. Bony mineralization is normal. CONCLUSION: 1. No acute bony abnormality identified. Obed Hurtado MD on November 28, 2016 at 13:28 Board Certified Radiologist. This report was verified electronically.
--- NOTE | 2016-11-28 15:05 | PD.CARD.PN ---
Subjective Subjective Remarks feels better Objective Vital Signs / I&O Vital Signs Date Time Temp Pulse Resp B/P Pulse Ox O2 Delivery O2 Flow Rate FiO2 11/28/16 08:01 116 11/28/16 08:00 Nasal Cannula 2.00 11/28/16 08:00 97.4 97 20 103/63 92 11/28/16 04:00 97.5 75 18 112/66 100 11/28/16 00:44 97.4 75 18 110/55 100 11/27/16 22:00 Nasal Cannula 2.00 11/27/16 20:38 97.2 84 18 107/63 100 11/27/16 20:27 132 11/27/16 16:00 97.4 88 20 121/80 91 I/O 11/27/16 11/27/16 11/27/16 11/28/16 11/28/16 11/28/16 07:00 15:00 23:00 07:00 15:00 23:00 Intake Total 100 ml 600 ml 4 ml Output Total 550 ml 475 ml 50 ml 400 ml Balance -450 ml 125 ml -46 ml -400 ml Intake Oral 100 ml 600 ml IV Total 4 ml Output Urine Total 550 ml 475 ml 50 ml 400 ml # Bowel Movements 0 1 0 Physical Exam GENERAL: SKIN: Warm and dry. HEAD: Normocephalic. EYES: No scleral icterus. No injection or drainage. NECK: Supple, trachea midline. No JVD or lymphadenopathy. CARDIOVASCULAR: Regular rate and rhythm without murmurs, gallops, or rubs. RESPIRATORY: Breath sounds equal bilaterally. No accessory muscle use. GASTROINTESTINAL: Abdomen soft, non-tender, nondistended. MUSCULOSKELETAL: No cyanosis, or edema. BACK: Nontender without obvious deformity. No CVA tenderness. Laboratory Laboratory Tests Test 11/28/16 07:12 Sodium Level 138 MEQ/L Potassium Level 3.8 MEQ/L Chloride Level 100 MEQ/L Carbon Dioxide Level 32.3 MEQ/L Anion Gap 6 MEQ/L Blood Urea Nitrogen 25 MG/DL Creatinine 1.45 MG/DL Estimat Glomerular Filtration 35 ML/MIN Rate Random Glucose 120 MG/DL Calcium Level 8.5 MG/DL B-Type Natriuretic Peptide 591 PG/ML Assessment and Plan Problem List: (1) CHF exacerbation (2) Afib Assessment and Plan 1.) Chf - improving, continue diuresis, f/u bnp in am, yuni held due to arf and hypotension 2.) AFib - rate controlled on cardizem and lopressor, continue xarelto 3.) ok to dc from cv standpoint, f/u with me tiffanie, d/w patient, her family and charge nurse, Nani Problem Qualifiers (1) CHF exacerbation: Qualified Code: I50.9 - Acute on chronic congestive heart failure, unspecified congestive heart failure type Arturo Murillo MD November 28, 2016 15:05
--- NOTE | 2016-11-28 19:17 | PQ ---
Physician Query Response Document PATIENT: RONALD GUTIERREZ : 1935 ADMIT DATE: 11/25/2016 12:57 PM DISCH DATE: RESPONDING PROVIDER #: [email or web address] QUERY TEXT: CHF Acuity and Type Congestive Heart Failure is documented in the Medical Record. Please document the type and acuity (in cludes probable or suspected) Such as: Type: -- Systolic -- Diastolic -- Combined -- Other, please specify The patient's Clinical Indicators include: CHF ACUTE ON CHRONIC Systolic function mod reduced ej fx 35-40% diffuse hypokinesis. Right ventricle and atrium mildly dil ated w aortic stenosis. Mitral and tricuspid valve regurgitation BNP 643 home meds Metoprolol and Lasix Query created by: Magy Lott on 11/28/2016 8:30 AM RESPONSE TEXT: systolic Electronically signed by: Margy Juares MD 11/28/2016 7:13 PM
--- NOTE | 2016-11-28 21:01 | MP ---
cc: [facility] DPM DATE OF CONSULT 11/28/16 CHIEF COMPLAINT Right foot swelling and discomfort. HISTORY OF PRESENT ILLNESS Ms. Sylvester is an 81-year-old female patient who presented to the emergency department for several days of increased lower extremity swelling. She states that the right foot pain just started within the last few days and the left foot swelling and discomfort was previously noted but has resolved. PAST MEDICAL HISTORY 1. Atrial fibrillation 2. Type 2 diabetes, 3. Hypertension, 4. Gastroesophageal reflux disease, 5. Dyslipidemia PAST SURGICAL HISTORY 1. Pacemaker 2. Carpal tunnel 3. Cholecystectomy, 4. Partial hysterectomy. MEDICATIONS Please see list. ALLERGIES IBUPROFEN CODEINE FAMILY HISTORY Noncontributory. SOCIAL HISTORY The patient lives at home alone but does have family in town. PHYSICAL EXAMINATION VITAL SIGNS: Temperature is 97.2, pulse 80, respiratory rate 20, blood pressure 116/65, pulse ox 97% O2 on room air. LABORATORY DATA White count 10.8, hemoglobin 10.9, hematocrit 35.1, platelets 276. Sodium 138, potassium 2.9, chloride 100, carbon dioxide 32.3, BUN 25. IMAGING STUDIES X-ray of the right foot did not show any gross abnormalities. No fractures and dislocations. Joint lines are within normal limits. PHYSICAL EXAMINATION Shows +2 pitting edema of the right lower extremity, palpable DP and PT pulses. No open lesions. Gross sensation is intact. Mild pain at the distal aspect of the plantar fasciitis just proximal to metatarsal head. The patient states the pain is extremely mild. ASSESSMENT/PLAN 1. +2 pitting edema RLE 2. Mild tenderness to plantar forefoot - I explained to the patient that her swelling is likely due to the acute kidney injury. She is already being treated with diuretics so she was placed in elevated position and a light Bobby wrap was applied to the foot. Her discomfort is likely due to walking barefoot, as she is a very high arch type and this would place stress on the forefoot. She is advised to have a family member bring a comfortable pair of sneakers that she can ambulate in in the hospital. Otherwise, I do not see a need for any further intervention. The patient's situation appears benign and she herself states that most of the pain has already resolved. She is welcome to follow up with me as an outpatient and I would be happy to see her again as an inpatient if the problem persists or changes. Thank you for this consultation. Fior THOMAS /8:20 PM /8:53 PM MTDDiony
[2016-11-28] MEDS: PRAVASTATIN SOD 80 MG TAB PO SCH (21:06)
[2016-11-29] VITALS (9 sets, daily range): BP systolic 98–117; BP diastolic 54–75; PULSE 81–117; RESP 18–20; TEMP 97.2–97.9; O2SAT 95–100
[2016-11-29] MEDS: INSULIN ASPART SUPPLEMENTAL SCALE SQ SCH ×4 (05:12→21:00)
[2016-11-29] MEDS: SODIUM CHLORIDE 0.9% FLUSH 10 ML FLUSH IV FLUSH SCH ×2 (09:00→23:30)
[2016-11-29] MEDS: FUROSEMIDE 40 MG TAB PO SCH ×2 (09:19→17:24)
[2016-11-29] MEDS: METOPROLOL TARTRATE 100 MG TAB PO SCH ×2 (09:19→23:29)
[2016-11-29] MEDS: POTASSIUM CHLORIDE 20 MEQ CONTROLLED RELEASE TAB PO SCH (09:19)
[2016-11-29] MEDS: RIVAROXABAN 15 MG TAB PO SCH (09:19)
[2016-11-29] MEDS: DILTIAZEM-CD 120 MG CAP ER PO SCH (09:19)
[2016-11-29] MEDS: LISINOPRIL 5 MG TAB PO SCH (09:19)
[2016-11-29] MEDS: PANTOPRAZOLE SOD 40 MG DELAYED RELEASE TAB PO SCH (09:19)
--- NOTE | 2016-11-29 09:38 | HHI.PR ---
Subjective Remarks Follow-up CHF exacerbation, dyspnea. Patient states that she was a little more short of breath this morning. Denies chest pain. She would like to go home today. It's that she is living with her son and [id number]. Objective Vitals Vital Signs Date Time Temp Pulse Resp B/P Pulse Ox O2 Delivery O2 Flow Rate FiO2 11/29/16 08:00 97.3 83 20 112/75 96 11/29/16 04:00 97.4 85 18 103/54 99 11/29/16 00:12 Nasal Cannula 2.00 11/29/16 00:00 97.9 83 18 117/70 99 11/28/16 20:12 95 11/28/16 20:00 97.2 79 20 110/53 96 11/28/16 16:00 97.2 80 20 116/65 97 11/28/16 12:00 97.2 112 20 108/80 I/O 11/28/16 11/28/16 11/28/16 11/29/16 11/29/16 11/29/16 06:59 14:59 22:59 06:59 14:59 22:59 Intake Total 720 ml 122 ml 0 ml Output Total 400 ml 200 ml 100 ml Balance -400 ml 720 ml -78 ml -100 ml Intake Oral 720 ml 120 ml 0 ml IV Total 2 ml Output Urine Total 400 ml 200 ml 100 ml # Voids 1 # Bowel Movements 0 1 1 0 Result Diagram: 11/26/16 0728 11/28/16 0712 Imaging Last Impressions Foot X-Ray 11/28/16 0000 Signed Impressions: Service Date/Time: Monday, November 28, 2016 13:05 - CONCLUSION: 1. No acute bony abnormality identified. Obed Hurtado MD Chest X-Ray 11/25/16 1047 Signed Impressions: Service Date/Time: Friday, November 25, 2016 11:01 - CONCLUSION: Cardiomegaly with pulmonary vascular congestion. Francisco Bear MD Objective Remarks General: Elderly female in no acute distress. Heart: Regular rate and rhythm. No murmur. Lungs: Clear to auscultation bilaterally. No wheezes, rales, or rhonchi. Breathing is nonlabored. Abdomen: Soft, nontender, nondistended. Extremities: Trace bilateral lower extremity edema. Right ankle wrapped with Bobby bandage. Psych: Alert and oriented. Procedures None Urinary Catheter: No Vascular Central Line Catheter: No A/P Problem List: (1) CHF exacerbation ICD Code: I50.9 Status: Acute (2) Atrial fibrillation ICD Code: I48.91 Status: Chronic (3) Diabetes mellitus ICD Code: E11.9 Status: Chronic (4) Right foot pain ICD Code: M79.671 Status: Acute (5) Chronic systolic CHF (congestive heart failure) ICD Code: I50.22 Status: Chronic (6) Acute worsening of stage 3 chronic kidney disease ICD Code: N18.3 Status: Acute Assessment and Plan 1. Acute exacerbation of chronic systolic congestive heart failure: Appreciate cardiology recommendations. Continue Lasix. Swelling has improved. Recheck chest x-ray today. 2. Acute worsening of chronic kidney disease stage III: Monitor BUN and creatinine. Improving. 3. Dyspnea, hypoxia: Secondary to CHF. Respiratory walk test ordered. May need home oxygen. 4. Diabetes mellitus type 2: Metformin on hold secondary to elevated creatinine. Monitor Accu-Cheks and cover with sliding scale insulin. 5. Right foot pain: Appreciate podiatry recommendations. Discharge Planning Possible discharge home later today. Problem Qualifiers (1) CHF exacerbation: Qualified Code: I50.9 - Acute on chronic congestive heart failure, unspecified congestive heart failure type (2) Diabetes mellitus: Ashish Mahoney MD November 29, 2016 09:37
[2016-11-29] MEDS ORDERED: POTA20TA5 PO (09:40)
[2016-11-29] MEDS ORDERED: LISI-519 PO (09:40)
--- NOTE | 2016-11-29 09:42 | HHI.DCPOC ---
Discharge Care Plan Diagnosis: (1) CHF exacerbation (2) Atrial fibrillation (3) Diabetes mellitus (4) Right foot pain (5) Chronic systolic CHF (congestive heart failure) (6) Acute worsening of stage 3 chronic kidney disease Goals to Promote Your Health * To prevent worsening of your condition and complications * To maintain your health at the optimal level Directions to Meet Your Goals Take your medications as prescribed Follow your dietary instruction Follow activity as directed Keep your appointments as scheduled Take your immunizations and boosters as scheduled If your symptoms worsen call your PCP, if no PCP go to Urgent Care Center or Emergency Room Smoking is Dangerous to Your Health. Avoid second hand smoke Call the 24-hour hour crisis hotline for domestic abuse at Ashish Mahoney MD November 29, 2016 09:42
--- NOTE | 2016-11-29 11:07 | RADRPT ---
EXAM DATE/TIME: 11/29/2016 10:12 [facility] COMPARISON: CHEST SINGLE AP, November 25, 2016, 11:01. INDICATIONS : Shortness of breath and cough. MEDICAL HISTORY : Congestive heart failure. Afib. SURGICAL HISTORY : Pacemaker. ENCOUNTER: Subsequent ACUITY: 2 weeks PAIN SCORE: 0/10 LOCATION: Bilateral chest FINDINGS: A single portable frontal view of the chest is a tiny left effusion which is new from the prior study . No effusion on the right. Heart is enlarged. Pulmonary vascular engorgement. No infiltrates. Calcif ied granuloma left upper lobe. Pacing device on the left. CONCLUSION: 1. Cardiomegaly with pulmonary vascular engorgement. No infiltrates. 2. Tiny left effusion. Prem Noland Jr., MD on November 29, 2016 at 11:05 Board Certified Radiologist. This report was verified electronically.
--- NOTE | 2016-11-29 14:07 | PD.CARD.PN ---
Subjective Subjective Remarks alert in nad, nurse reports tachycardia and hypotension Objective Vital Signs / I&O Vital Signs Date Time Temp Pulse Resp B/P Pulse Ox O2 Delivery O2 Flow Rate FiO2 11/29/16 12:00 97.2 117 20 98 100/60 11/29/16 09:20 Nasal Cannula 3.00 11/29/16 09:20 108 11/29/16 08:00 97.3 83 20 112/75 96 11/29/16 04:00 97.4 85 18 103/54 99 11/29/16 00:12 Nasal Cannula 2.00 11/29/16 00:00 97.9 83 18 117/70 99 11/28/16 20:12 95 11/28/16 20:00 97.2 79 20 110/53 96 11/28/16 16:00 97.2 80 20 116/65 97 I/O 11/28/16 11/28/16 11/28/16 11/29/16 11/29/16 11/29/16 07:00 15:00 23:00 07:00 15:00 23:00 Intake Total 720 ml 122 ml 0 ml Output Total 400 ml 200 ml 100 ml Balance -400 ml 720 ml -78 ml -100 ml Intake Oral 720 ml 120 ml 0 ml IV Total 2 ml Output Urine Total 400 ml 200 ml 100 ml # Voids 1 # Bowel Movements 0 1 1 0 Physical Exam GENERAL: SKIN: Warm and dry. HEAD: Normocephalic. EYES: No scleral icterus. No injection or drainage. NECK: Supple, trachea midline. No JVD or lymphadenopathy. CARDIOVASCULAR: Regular rate and rhythm without murmurs, gallops, or rubs. RESPIRATORY: Breath sounds equal bilaterally. No accessory muscle use. GASTROINTESTINAL: Abdomen soft, non-tender, nondistended. MUSCULOSKELETAL: No cyanosis, or edema. BACK: Nontender without obvious deformity. No CVA tenderness. Assessment and Plan Problem List: (1) CHF exacerbation (2) Afib Assessment and Plan 1.) Chf - improving, but now tachycardic and hypotensive, continue diuresis, f/ u bnp in am, yuni held due to arf and hypotension; hold xarelto, plan rhc/lch due to chf, arrythmia, hemodynamic instability; i explained to patient and her son with nurse present that the risk of cath/pci is 5-10% chance of , mi, cva, need for cabg/surgery/dialysis/blood transfusion, bleeding, infection, anaphylaxis and arrythmia 2.) AFib - rate controlled on cardizem and lopressor, hold xarelto for cath Problem Qualifiers (1) CHF exacerbation: Qualified Code: I50.9 - Acute on chronic congestive heart failure, unspecified congestive heart failure type Arturo Murillo MD November 29, 2016 14:07
[2016-11-29 15:31] LABS: HEMATOCRIT 29.4 % (35.0-46.0); REVIEW FLAG FINAL
[2016-11-29] MEDS: PRAVASTATIN SOD 80 MG TAB PO SCH (23:29)
[2016-11-30] VITALS (8 sets, daily range): BP systolic 99–110; BP diastolic 58–72; PULSE 83–109; RESP 18–20; TEMP 97.1–97.9; O2SAT 96–100
[2016-11-30] MEDS: INSULIN ASPART SUPPLEMENTAL SCALE SQ SCH ×4 (06:14→20:37)
[2016-11-30] MEDS: PANTOPRAZOLE SOD 40 MG DELAYED RELEASE TAB PO SCH (08:39)
[2016-11-30] MEDS: DILTIAZEM-CD 120 MG CAP ER PO SCH (08:40)
[2016-11-30] MEDS: METOPROLOL TARTRATE 100 MG TAB PO SCH ×2 (08:40→20:36)
[2016-11-30] MEDS: POTASSIUM CHLORIDE 20 MEQ CONTROLLED RELEASE TAB PO SCH (08:40)
[2016-11-30] MEDS: SODIUM CHLORIDE 0.9% FLUSH 10 ML FLUSH IV FLUSH SCH ×2 (08:40→20:37)
[2016-11-30] MEDS: FUROSEMIDE 40 MG TAB PO SCH ×2 (08:40→16:52)
[2016-11-30] MEDS: LISINOPRIL 5 MG TAB PO SCH (08:40)
--- NOTE | 2016-11-30 09:03 | HHI.PR ---
Subjective Remarks Follow-up CHF. Patient has dyspnea with exertion. Otherwise feels back to her normal self. Denies chest pain. Objective Vitals Vital Signs Date Time Temp Pulse Resp B/P Pulse Ox O2 Delivery O2 Flow Rate FiO2 11/30/16 04:00 97.8 105 18 99/58 96 11/30/16 00:00 97.5 106 18 104/58 96 11/29/16 21:15 Nasal Cannula 2.00 11/29/16 20:20 92 11/29/16 20:00 97.6 107 18 98/56 95 11/29/16 16:00 97.6 81 20 106/73 97 11/29/16 14:03 100 Nasal Cannula 3.00 11/29/16 12:00 97.2 117 20 98 100/60 11/29/16 09:20 Nasal Cannula 3.00 11/29/16 09:20 108 I/O 11/29/16 11/29/16 11/29/16 11/30/16 11/30/16 11/30/16 07:00 15:00 23:00 07:00 15:00 23:00 Intake Total 0 ml 560 ml 240 ml Output Total 100 ml 400 ml Balance -100 ml 160 ml 240 ml Intake Oral 0 ml 560 ml 240 ml Output Urine Total 100 ml 400 ml # Voids 3 # Bowel Movements 0 2 3 Result Diagram: 11/29/16 1429 11/28/16 0712 Imaging Last Impressions Chest X-Ray 11/29/16 0000 Signed Impressions: Service Date/Time: Tuesday, November 29, 2016 10:12 - CONCLUSION: 1. Cardiomegaly with pulmonary vascular engorgement. No infiltrates. 2. Tiny left effusion. Prem Noland Jr., MD Foot X-Ray 11/28/16 0000 Signed Impressions: Service Date/Time: Monday, November 28, 2016 13:05 - CONCLUSION: 1. No acute bony abnormality identified. Obed Hurtado MD Objective Remarks General: Elderly female in no acute distress. Heart: Regular rate and rhythm. No murmur. Lungs: Clear to auscultation bilaterally. No wheezes, rales, or rhonchi. Breathing is nonlabored. Abdomen: Soft, nontender, nondistended. Extremities: Trace bilateral lower extremity edema, right greater than left. Right ankle wrapped with Bobby bandage. Psych: Alert and oriented. Procedures None Urinary Catheter: No Vascular Central Line Catheter: No A/P Problem List: (1) CHF exacerbation ICD Code: I50.9 Status: Acute (2) Atrial fibrillation ICD Code: I48.91 Status: Chronic (3) Diabetes mellitus ICD Code: E11.9 Status: Chronic (4) Right foot pain ICD Code: M79.671 Status: Acute (5) Chronic systolic CHF (congestive heart failure) ICD Code: I50.22 Status: Chronic (6) Acute worsening of stage 3 chronic kidney disease ICD Code: N18.3 Status: Acute Assessment and Plan 1. Acute exacerbation of chronic systolic congestive heart failure: Appreciate cardiology recommendations. Continue Lasix. Swelling has improved. Discussed with Dr. Murillo, cardiology. He is planning cardiac catheterization tomorrow. 2. Acute worsening of chronic kidney disease stage III: Monitor BUN and creatinine. Improving. Labs are pending today. 3. Dyspnea, hypoxia: Secondary to CHF. Respiratory walk test done yesterday. 4. Diabetes mellitus type 2: Metformin on hold secondary to elevated creatinine. Monitor Accu-Cheks and cover with sliding scale insulin. 5. Right foot pain: Appreciate podiatry recommendations. 6. Right lower extremity edema: Check Doppler ultrasound to rule out DVT. 7. DVT prophylaxis: Xarelto on hold prior to cardiac catheterization. Problem Qualifiers (1) CHF exacerbation: Qualified Code: I50.9 - Acute on chronic congestive heart failure, unspecified congestive heart failure type (2) Diabetes mellitus: Ashish Mahoney MD November 30, 2016 09:03
--- NOTE | 2016-11-30 11:54 | RADRPT ---
EXAM DATE/TIME: 11/30/2016 09:59 [facility] COMPARISON: No previous studies available for comparison. INDICATIONS : Right leg swelling. MEDICAL HISTORY : Chronic obstructive pulmonary disease. CHF. A. FIB. Dyspnea. Arthritis. Diabetes. Stage 3 kidney disease. SURGICAL HISTORY : Cholecystectomy. Hysterectomy. Pacemaker. ENCOUNTER: Initial ACUITY: 1 day PAIN SCORE: 3/10 LOCATION: Right leg. TECHNIQUE: Venous ultrasound of the leg was performed from the inguinal ligament to the proximal calf. Real-norm e, color Doppler and spectral tracing, compression and augmentation techniques were used. FINDINGS: There is normal compressibility of the deep venous system from the inguinal region to the proximal ca lf. No echogenic clot is seen in the lumen of the common femoral, femoral, popliteal, and posterior tibial veins. There is a normal response of the venous system to proximal and distal augmentation an d respiration. CONCLUSION: Normal examination. Nam Strickland MD on November 30, 2016 at 11:53 Board Certified Radiologist. This report was verified electronically.
--- NOTE | 2016-11-30 12:45 | PD.CARD.PN ---
Subjective Subjective Remarks alert in nad Objective Vital Signs / I&O Vital Signs Date Time Temp Pulse Resp B/P Pulse Ox O2 Delivery O2 Flow Rate FiO2 11/30/16 09:00 Room Air 11/30/16 09:00 109 11/30/16 08:00 97.9 105 18 110/72 98 11/30/16 04:00 97.8 105 18 99/58 96 11/30/16 00:00 97.5 106 18 104/58 96 11/29/16 21:15 Nasal Cannula 2.00 11/29/16 21:15 Nasal Cannula 2.00 11/29/16 20:20 92 11/29/16 20:00 97.6 107 18 98/56 95 11/29/16 16:00 97.6 81 20 106/73 97 11/29/16 14:03 100 Nasal Cannula 3.00 I/O 11/29/16 11/29/16 11/29/16 11/30/16 11/30/16 11/30/16 07:00 15:00 23:00 07:00 15:00 23:00 Intake Total 0 ml 560 ml 240 ml Output Total 100 ml 400 ml Balance -100 ml 160 ml 240 ml Intake Oral 0 ml 560 ml 240 ml Output Urine Total 100 ml 400 ml # Voids 3 # Bowel Movements 0 2 3 Physical Exam GENERAL: SKIN: Warm and dry. HEAD: Normocephalic. EYES: No scleral icterus. No injection or drainage. NECK: Supple, trachea midline. No JVD or lymphadenopathy. CARDIOVASCULAR: Regular rate and rhythm without murmurs, gallops, or rubs. RESPIRATORY: Breath sounds equal bilaterally. No accessory muscle use. GASTROINTESTINAL: Abdomen soft, non-tender, nondistended. MUSCULOSKELETAL: No cyanosis, or edema. BACK: Nontender without obvious deformity. No CVA tenderness. Laboratory Laboratory Tests Test 11/29/16 14:29 Hemoglobin 9.5 GM/DL Hematocrit 29.4 % Assessment and Plan Problem List: (1) CHF exacerbation (2) Afib Assessment and Plan 1.) Chf - improving, but now tachycardic and hypotensive, continue diuresis, f/ u bnp in am, yuni held due to arf and hypotension; hold xarelto, plan rhc/lch due to chf, arrythmia, ventricular tachycardia, hemodynamic instability; i explained to patient and her son with nurse present that the risk of cath/pci is 5-10% chance of , mi, cva, need for cabg/surgery/dialysis/blood transfusion, bleeding, infection, anaphylaxis and arrythmia 2.) AFib - rate controlled on cardizem and lopressor, hold xarelto for cath 3.) Ventricular tachycardia - consult Dr Atkinson Problem Qualifiers (1) CHF exacerbation: Qualified Code: I50.9 - Acute on chronic congestive heart failure, unspecified congestive heart failure type Arturo Murillo MD November 30, 2016 12:45
[2016-11-30 16:02] LABS: AUTOMATED NEUTROPHIL # 7.1 TH/MM3 (1.8-7.7); BASOPHIL % 0.5 % (0.0-2.0); EOSINOPHIL # 0.1 TH/MM3 (0-0.4); HEMATOCRIT 31.6 % (35.0-46.0); HEMO FLAGS DIFF FINAL; MEAN CELL VOLUME 86.4 FL (80.0-100.0); MEAN CORPUSCULAR HEMOGLOBIN 26.5 PG (27.0-34.0); MEAN CORPUSCULAR HGB CONC 30.7 % (32.0-36.0); MONO % 9.9 % (0.0-8.0); NEUT % 77.6 % (16.0-70.0); PLATELET COUNT 218 TH/MM3 (150-450); RED BLOOD COUNT 3.66 MIL/MM3 (4.00-5.30); RED CELL DISTRIBUTION WIDTH 17.9 % (11.6-17.2); WHITE BLOOD COUNT 9.1 TH/MM3 (4.0-11.0)
[2016-11-30 16:47] LABS: BICARBONATE 27.6 MEQ/L (21.0-32.0); POTASSIUM 4.5 MEQ/L (3.5-5.1)
[2016-11-30] MEDS: PRAVASTATIN SOD 80 MG TAB PO SCH (20:36)
[2016-12-01] VITALS (17 sets, daily range): BP systolic 104–121; BP diastolic 54–77; PULSE 70–126; RESP 16–20; TEMP 97.1–98.2; O2SAT 96–100
[2016-12-01] MEDS: INSULIN ASPART SUPPLEMENTAL SCALE SQ SCH ×4 (06:35→21:00)
[2016-12-01 08:05] LABS: AUTOMATED NEUTROPHIL # 7.2 TH/MM3 (1.8-7.7); BASOPHIL # 0.1 TH/MM3 (0-0.2); BASOPHIL % 0.6 % (0.0-2.0); EOSINOPHIL # 0.2 TH/MM3 (0-0.4); EOSINOPHIL % 1.8 % (0.0-4.0); HEMATOCRIT 33.4 % (35.0-46.0); HEMO FLAGS DIFF FINAL; LYMPH % 12.2 % (9.0-44.0); LYMPHOCYTE # 1.2 TH/MM3 (1.0-4.8); MEAN CELL VOLUME 85.5 FL (80.0-100.0); MEAN CORPUSCULAR HEMOGLOBIN 26.3 PG (27.0-34.0); MEAN CORPUSCULAR HGB CONC 30.7 % (32.0-36.0); MONO % 9.1 % (0.0-8.0); NEUT % 76.3 % (16.0-70.0); PLATELET COUNT 216 TH/MM3 (150-450); WHITE BLOOD COUNT 9.4 TH/MM3 (4.0-11.0)
[2016-12-01 08:30] LABS: BICARBONATE 27.7 MEQ/L (21.0-32.0)
[2016-12-01] MEDS: POTASSIUM CHLORIDE 20 MEQ CONTROLLED RELEASE TAB PO SCH (09:00)
[2016-12-01] MEDS: LISINOPRIL 5 MG TAB PO SCH (09:00)
[2016-12-01] MEDS: METOPROLOL TARTRATE 100 MG TAB PO SCH ×2 (09:00→23:33)
[2016-12-01] MEDS: SODIUM CHLORIDE 0.9% FLUSH 10 ML FLUSH IV FLUSH SCH (09:00)
[2016-12-01] MEDS: DILTIAZEM-CD 120 MG CAP ER PO SCH (09:00)
[2016-12-01] MEDS: FUROSEMIDE 40 MG TAB PO SCH ×2 (09:00→18:14)
[2016-12-01] MEDS: PANTOPRAZOLE SOD 40 MG DELAYED RELEASE TAB PO SCH (09:00)
[2016-12-01] MEDS ORDERED: HEPARIN-NS/PF INJ 500 ML ONE (09:39)
--- NOTE | 2016-12-01 10:06 | HHI.PR ---
Subjective Remarks Follow-up CHF, CAD. Going for cardiac catheterization today. Denies chest pain, dyspnea. Feels tired, weak. Objective Vitals Vital Signs Date Time Temp Pulse Resp B/P Pulse Ox O2 Delivery O2 Flow Rate FiO2 12/01/16 08:00 97.5 112 18 110/62 99 12/01/16 07:00 Nasal Cannula 2.00 12/01/16 04:00 97.1 126 20 104/69 100 12/01/16 04:00 Nasal Cannula 2.00 12/01/16 00:00 97.3 70 20 110/54 100 12/01/16 00:00 Nasal Cannula 2.00 11/30/16 20:29 105 11/30/16 20:00 Nasal Cannula 2.00 11/30/16 20:00 97.2 83 18 110/58 100 11/30/16 16:00 97.4 85 18 100/60 100 11/30/16 12:00 97.1 97 20 106/66 100 I/O 11/30/16 11/30/16 11/30/16 12/01/16 12/01/16 12/01/16 07:00 15:00 23:00 07:00 15:00 23:00 Intake Total 480 ml 240 ml 0 ml Output Total 400 ml 300 ml 550 ml Balance 80 ml -60 ml -550 ml Intake Oral 480 ml 240 ml 0 ml Output Urine Total 400 ml 300 ml 550 ml # Bowel Movements 2 1 0 Result Diagram: 12/01/16 0735 12/01/16 0735 Imaging Last Impressions Lower Extremity Ultrasound 11/30/16 0000 Signed Impressions: Service Date/Time: November 09:59 - CONCLUSION: Normal examination. Nam Strickland MD Chest X-Ray 11/29/16 0000 Signed Impressions: Service Date/Time: Tuesday, November 29, 2016 10:12 - CONCLUSION: 1. Cardiomegaly with pulmonary vascular engorgement. No infiltrates. 2. Tiny left effusion. Prem Noland Jr., MD Foot X-Ray 11/28/16 0000 Signed Impressions: Service Date/Time: Monday, November 28, 2016 13:05 - CONCLUSION: 1. No acute bony abnormality identified. Obed Hurtado MD Objective Remarks General: Elderly female in no acute distress. Heart: Regular rate and rhythm. No murmur. Lungs: Clear to auscultation bilaterally. No wheezes, rales, or rhonchi. Breathing is nonlabored. Abdomen: Soft, nontender, nondistended. Extremities: 1+ right lower extremity edema. Right ankle wrapped with Bobby bandage. Psych: Alert and oriented. Procedures None Urinary Catheter: No Vascular Central Line Catheter: No A/P Problem List: (1) CHF exacerbation ICD Code: I50.9 Status: Acute (2) Atrial fibrillation ICD Code: I48.91 Status: Chronic (3) Diabetes mellitus ICD Code: E11.9 Status: Chronic (4) Right foot pain ICD Code: M79.671 Status: Acute (5) Chronic systolic CHF (congestive heart failure) ICD Code: I50.22 Status: Chronic (6) Acute worsening of stage 3 chronic kidney disease ICD Code: N18.3 Status: Acute Assessment and Plan 1. Acute exacerbation of chronic systolic congestive heart failure: Appreciate cardiology recommendations. Continue Lasix. Swelling has improved. He is planning cardiac catheterization tomorrow. 2. Acute worsening of chronic kidney disease stage III: Creatinine remains elevated. Monitor labs. 3. Dyspnea, hypoxia: Secondary to CHF. Respiratory walk test showed no need for home oxygen on 11/29/16. 4. Diabetes mellitus type 2: Metformin on hold secondary to elevated creatinine. Monitor Accu-Cheks and cover with sliding scale insulin. 5. Right foot pain: Appreciate podiatry recommendations. 6. Right lower extremity edema: Keep elevated. Continue diuretics. Ultrasound negative for DVT. 7. DVT prophylaxis: Xarelto on hold prior to cardiac catheterization. Problem Qualifiers (1) CHF exacerbation: Qualified Code: I50.23 - Acute on chronic systolic congestive heart failure (2) Diabetes mellitus: Ashish Mahoney MD December 01, 2016 10:06
[2016-12-01] MEDS ORDERED: HEPARIN SODIUM - IV 10,000 UNITS/10 ML VIAL ONE (10:09)
[2016-12-01] MEDS ORDERED: IOHEXOL 350 MG/ML 50 ML BTL (for Cath Lab) OTHER ONE (10:30)
[2016-12-01] MEDS ORDERED: MISC INFORMATION XX ONE (10:30)
[2016-12-01] MEDS ORDERED: SODIUM CHLORIDE 0.9% FLUSH 10 ML FLUSH PRN (10:30)
--- NOTE | 2016-12-01 10:51 | CATHPROC ---
[employer] HIS Report Study Information Study Number Admission Scheduled Start Study Start [id number] 11/25/2016 12/01/2016 Dec 01 2016 8:57AM Referring Institution Admit Source Facility Department 1 Emergency department [facility] - [facility] Physician and Clinical Staff Initial Arturo Bee Watchstander Buster Cisneros,CHEO Recorder Cheryl Pritchett RCIS TECH2 Scrub Kwadwo Avilez RCIS(BS) Procedures Performed Procedure Location (Site) Vessel Name Coronary Angiograms LCA Left Coronary Coronary Angiograms RCA Right Coronary LV Gram-hand inj. LV LV Ventricle Equipment Time Carbonating Stone Cleaner Description Size Mfg Part Number Used/Scraped CATHETER, FR5 SWAN ERICH 09:59 [employer] FR 5 [id number] *[id number] Used MONITOR TRANSDUCER, TRUWAVE 08:58 [employer] * [id number] Used W/STOCKCOCK [id number] *[id number] [id number] *[id number] 08:58 [employer] PACK, CCL CUSTOM * Used *[id number] 08:58 Kewen PACER PEN, SKIN DUAL W/ RULER * [id number] Used [id number] 09:56 [employer] MEDICAL SHEATH, FR4.5 PRELUDE 11CM FR 4.5 Used [id number] 09:56 [employer] MEDICAL SHEATH, FR5.5 PRELUDE 11CM FR 5 [id number] Used [id number] 08:58 [employer] MEDICAL WIRE, 3MMJ .035 180CM 180CM Used *[id number] 08:58 NAMIC MANIFOLD, 4 PORT * Used *[id number] 08:58 NYCOMED OMNIPAQUE, 350 MG, 150ML 150ML [id number] Used [id number] 08:58 AGUSTIN MEDICAL BLANKET,WARM AIR CCL * Used *[id number] 09:56 TERUMO MEDICAL SHEATH, FR5 TERUMO (10CM) FR 5 [id number] Used History: Current Medications Medication Dosage/Unit Route Frequency Last Date/Time Taken Statins (any) XARELTO Glucophage LASIX LOPRESSOR History: Allergies Allergy Reaction Codeine Ibuprofen History: Risk Factors Family History of Hypertension Dyslipidemia Previous MN Previous Heart Failure Premature CAD Yes Yes No No No Prior Valve Prior PCI Prior CABG Surgery No No No Cerebrovascular Peripheral Artery Chronic Lung On Dialysis Diabetes Diabetes Therapy Disease Disease Disease No No No Yes Yes Oral History: Symptoms/Diagnosis Selection Items SOB History: Stress Tests Stress or Imaging Studies Performed No History: Arrhythmias Selection Items Atrial fibrillation History: Other Disease Selection Items CHF Gerd History: Other Current Smoker Method Quit Packs a Day Years Used Pack Years No Cigarettes 15 Years Ago 1 30 30 Labs Hgb (g/dl) Hct (%) WBC (l/cumm) Platelets (thousands) 12.00-18.00 37.00-55.00 4.80-10.80 140.00-450.00 10.3 33.4 9.4 216 Glucose (mg/dl) BUN (mg/dl) Creatinine (mg/dl) BUN:Creatinine (1:x) 60.00-110.00 8.00-20.00 0.10-9.00 10.00-20.00 102 31 1.7 18.2 Na (meq/l) K (meq/l) 138.00-146.00 3.80-5.10 138 4 INR (PTT:PT) 0.50-2.00 2.2 CPK-MB (ng/ML) 0.00-7.00 Not Drawn Medication Medication Total Dose (Bolus/Oral) Medication Total Dosage/Unit 1% XYLOCAINE 20 mL FENTANYL 12.5 mcg HEPARIN 3400 units Medications (Bolus/Oral) Medication Time Given Dosage/Unit Administered By Reason 1% XYLOCAINE 12/01/2016 9:52:42 AM 20 mL Arturo Murillo Patient arrived on 20 mL 1% XYLOCAINE given by Arturo Murillo in Right Groin via Subcutaneous. HEPARIN 12/01/2016 10:11:21 AM 3400 units Buster Cisneros 3400 units HEPARIN given in lab by Buster Cisneros RN in Right Forearm via Peripheral IV. Ordered by Arturo Nick. FENTANYL 12/01/2016 10:19:18 AM 12.5 mcg Buster Cisneros For pain 12.5 mcg FENTANYL given in lab by Buster Cisneros RN in Right Forearm via Peripheral IV. Ordered by Arturo Mclain. Reason: For pain. Medication (Drip) Medication Time Given Dosage/Unit Concentration/Unit Diluent (ml) Solution IV Solutions 12/01/2016 9:25:51 AM 0 mL (IV) 500 NaCl .9 Patient arrived on IV Solutions given by Buster Cisneros RN in Right Forearm via Peripheral IV. Pump/D rip Flow = 20 ml/hr using NaCl .9. Final Case Assessment Cardiovascular HR Rhythm NIBP Chest Pain 134 afib 104/57 0 Circulatory - Right Pulses Dorsalis Pedis Femoral 1 2 Scale (0,1,2,3,4,d) Circulatory - Left Pulses Dorsalis Pedis Femoral 1 2 Scale (0,1,2,3,4,d) Neurological State Oriented to time-place- Alert Moves all extremities person Respiration - General Respiration Rate SpO2 (%) O2 (lpm) (B/min) 20 100 3 Initial Case Assessment Cardiovascular HR Rhythm NIBP Chest Pain 94 afib 117/73 0 Circulatory - Right Pulses Dorsalis Pedis Femoral 1 2 Scale (0,1,2,3,4,d) Circulatory - Left Pulses Dorsalis Pedis Femoral 1 2 Scale (0,1,2,3,4,d) Neurological State Oriented to time-place- Alert Moves all extremities person Respiration - General SpO2 (%) O2 (lpm) 100 2 Chronological Log Time Study Chronological Log 9:25:08 Patient arrived via Bed. 9:25:09 Patient Name, D.O.B, / Armband Verified By R.N. 9:25:10 Consent signed by the physician and the patient and verified by the [facility] staff. 9:25:12 Pre-op and post- op instructions given; patient acknowledges understanding of instructions. 9:25:13 Verbal Stimulation=2 Physical Stimulation=2 Airway=2 Respiration=2 TOTAL=8. (0=absent, 1=oquendo ited, 2=present) 9:25:28 Presedation assessment performed by [facility] RN. 9:25:30 Patient has been NPO for More than 6Hrs. 9:25:31 Skin Breakdown-bandage noted on right foot. 9:25:32 Lavelle Prominences Protected 9:25:35 A # 20 IV was noted in the Forearm (right). Grade = 0 Patient arrived on IV Solutions given by Buster Cisneros, CHEO in Right Forearm via Peripheral IV. Pump/Drip Flow = 20 9:25:51 ml/hr using NaCl .9. 9:30:37 History and physical on the chart or being dictated. 9:31:16 CERT=069/86 mmhg, EaS0=025.0 %, Resp=18 B/min, Pain=0, [place]rales=2 Assessment: Initial Case, HR=94 BPM, Rhythm=afib, IXGI=211/73 mmhg, Chest Pain=0 Right Pulses: Ty Ped=1, Femoral=2 9:31:44 Left Pulses: Ty Ped=1, Femoral=2 Neurological: State=Alert, Ox3, SEAMAN Respiration: DbW0=379 %, O2=2 lpm 9:36:17 HR=94 bpm, DXYH=853/73 mmhg, QeP7=672.0 %, Resp=21 B/min 9:39:00 MD arrived. 9:41:18 LV=510 bpm, FPVF=827/70 mmhg, VaT2=640.0 %, Resp=19 B/min 9:44:20 Bilateral groins prepped with 2% chlorhexidine, and draped after a 3 min. waiting time. 9:46:19 HR=85 bpm, MXOD=619/71 mmhg, YdI6=419.0 %, Resp=22 B/min, Pain=0, [place]rales=2 9:49:46 Pressure channel 1 zeroed. 9:49:51 Reference ECG taken 9:51:16 HR=74 bpm, FGSZ=149/91 mmhg, DfE9=380.0 %, Resp=22 B/min Time Out. Correct patient, correct procedure,correct physician, power injector not loaded with contrast with surgical 9:52:11 team present. Time Out Concurred by MD and individual staff in procedure 9:52:41 Case Start 9:52:42 Patient arrived on 20 mL 1% XYLOCAINE given by Arturo Murillo in Right Groin via Subcutane ous. 9:54:23 Access site was Right Femoral Vein. 9:54:35 A SHEATH, FR5.5 PRELUDE 11CM FR 5 was advanced into the Fem Vein (right) using the Percutane ous technique. 9:55:42 A SHEATH, FR4.5 PRELUDE 11CM FR 4.5 was advanced into the Fem Art (right) using the Percutan eous technique. 9:55:54 Access site was Right Femoral Artery. 9:56:19 OH=062 bpm, MDJK=785/76 mmhg, CfM0=056.0 %, Resp=21 B/min 9:57:51 A CATHETER, FR5 SWAN ERICH MONITOR FR 5 was inserted via Fem Vein (right) 9:58:12 Saturation: Site=Ao (Aorta) , O2=98.2 %, Hgb=10.3 gm/dl, Condition=Condition 1. Used in calc ulation. 10:01:20 HR=86 bpm, NVFI=421/77 mmhg, UqO0=352.0 %, Resp=34 B/min Recorded Pressure: RV, YF=011, Condition=Condition 1 10:01:43 (Right Ventricle) RV 28/15/19 Recorded Pressure: RA, XC=965, Condition=Condition 1 10:02:25 (Right Atrium) RA 24//22 10:03:49 Whitethorn Erich Catheter Removed A JR 4.0 INFINITI CATHETER FR 4 was advanced over a wire. OMNIPAQUE, 350 MG, 150ML 150ML was us ed for 10:03:50 injections. Recorded Pressure: LV, HR=94, Condition=Condition 1 10:03:54 (Left Ventricle) LV 128/18/20 10:03:55 The LV was manually injected with 10 cc's and visualized. OMNIPAQUE, 350 MG, 150ML 150ML us ed. Recorded Pressure: LV, Ao, HR=92, Condition=Condition 1 10:03:56 (Left Ventricle) LV 118/19/22, (Aorta) Ao 117/63/82 10:04:50 The RCA was injected and visualized at various angles. OMNIPAQUE, 350 MG, 150ML 150ML used . 10:05:15 Catheter was removed A JL 4.0 INFINITI CATHETER FR 4 was advanced over a wire. OMNIPAQUE, 350 MG, 150ML 150ML was us ed for 10:05:16 injections. 10:06:19 QD=036 bpm, TMDJ=357/63 mmhg, QrU9=349.0 %, Resp=46 B/min 10:06:25 The LCA was injected and visualized at various angles. OMNIPAQUE, 350 MG, 150ML 150ML used . 10:07:20 Catheter was removed 10::02 Case End 10::[address] Carlton 10:11:18 BY=099 bpm, YHTN=715/67 mmhg, FyI1=652.0 %, Resp=23 B/min 10:11:21 3400 units HEPARIN given in lab by Buster Cisneros RN in Right Forearm via Peripheral IV. Or dered by Arturo Murillo. 10:16:21 PO=857 bpm, OWCU=704/66 mmhg, WcT2=047.0 %, Resp=27 B/min, Comment=Pt c/o tailbone pain 10:16:47 Activated Clotting Time Drawn 12.5 mcg FENTANYL given in lab by Buster Cisneros RN in Right Forearm via Peripheral IV. Ordered by Arturo Murillo. 10:19:18 Reason: For pain. 10:21:22 HR=97 bpm, HCYP=915/57 mmhg, OrX8=166.0 %, Resp=21 B/min 10:21:57 ACT (Normal Range 90-180) = 237 Assessment: Final Case, SQ=633 BPM, Rhythm=afib, NXWU=798/57 mmhg, Chest Pain=0 Right Pulses: Ty Ped=1, Femoral=2 10:24:51 Left Pulses: Ty Ped=1, Femoral=2 Neurological: State=Alert, Ox3, SEAMAN Respiration: Resp=20 B/min, FmN2=704 %, O2=3 lpm 10:24:54 In the Fem Art (right) the sheath was sutured in place by Buster Cisneros RN. 10:24:55 In the Fem Art (right) the sheath was sutured in place by Buster Cisneros RN. 10:24:59 Sterile dressing applied to site 10:25:00 No case complications noted. 10:25:01 Cine recording checked. 10:25:04 Bedside Report will be given. 10:25:12 A Left and Right Heart Cath was performed. 10:25:16 Clinical correlaton risk stratification. 10:26:19 FBIG=574/68 mmhg, JdR6=094.0 % 10:31:05 Patient moved to bed 10:31:21 Patient transported to DOCU. End Study - Contrast Media Used In Study Contrast Total Opened (mL) Total Used (mL) Total Wasted (mL) Omnipaque 50 50 0 End Study - Maximum Contrast Load Max Contrast Load (mL) 167.6 End Study - Radiation Exposure Fluoro Time (minutes) 6.3 End Study - Patient Disposition Complications Transferred To No Telemetry Bed
--- NOTE | 2016-12-01 12:35 | PD.CAR.PN ---
CVT Progress Note Subjective/Hospital Course: sts data discussed with pt RISK SCORES About the STS Risk Calculator Procedure: CAB Only Risk of Mortality: 5.925% Morbidity or Mortality: 31.893% Long Length of Stay: 16.865% Short Length of Stay: 17.374% Permanent Stroke: 1.803% Prolonged Ventilation: 21.265% DSW Infection: 0.59% Renal Failure: 13.419% Reoperation: 9.437% Objective: Vital Signs Date Time Temp Pulse Resp B/P Pulse Ox O2 Delivery O2 Flow Rate FiO2 12/01/16 11:45 86 20 110/72 96 12/01/16 08:00 97.5 112 18 110/62 99 12/01/16 07:00 Nasal Cannula 2.00 12/01/16 04:00 97.1 126 20 104/69 100 12/01/16 04:00 Nasal Cannula 2.00 12/01/16 00:00 97.3 70 20 110/54 100 12/01/16 00:00 Nasal Cannula 2.00 11/30/16 20:29 105 11/30/16 20:00 Nasal Cannula 2.00 11/30/16 20:00 97.2 83 18 110/58 100 11/30/16 16:00 97.4 85 18 100/60 100 Labs: Laboratory Tests Test 12/01/16 07:35 White Blood Count 9.4 TH/MM3 (4.0-11.0) Red Blood Count 3.90 MIL/MM3 (4.00-5.30) Hemoglobin 10.3 GM/DL (11.6-15.3) Hematocrit 33.4 % (35.0-46.0) Mean Corpuscular Volume 85.5 FL (80.0-100.0) Mean Corpuscular Hemoglobin 26.3 PG (27.0-34.0) Mean Corpuscular Hemoglobin 30.7 % Concent (32.0-36.0) Red Cell Distribution Width 18.0 % (11.6-17.2) Platelet Count 216 TH/MM3 (150-450) Mean Platelet Volume 10.3 FL (7.0-11.0) Neutrophils (%) (Auto) 76.3 % (16.0-70.0) Lymphocytes (%) (Auto) 12.2 % (9.0-44.0) Monocytes (%) (Auto) 9.1 % (0.0-8.0) Eosinophils (%) (Auto) 1.8 % (0.0-4.0) Basophils (%) (Auto) 0.6 % (0.0-2.0) Neutrophils # (Auto) 7.2 TH/MM3 (1.8-7.7) Lymphocytes # (Auto) 1.2 TH/MM3 (1.0-4.8) Monocytes # (Auto) 0.9 TH/MM3 (0-0.9) Eosinophils # (Auto) 0.2 TH/MM3 (0-0.4) Basophils # (Auto) 0.1 TH/MM3 (0-0.2) CBC Comment DIFF FINAL Differential Comment Sodium Level 138 MEQ/L (136-145) Potassium Level 4.0 MEQ/L (3.5-5.1) Chloride Level 101 MEQ/L (98-107) Carbon Dioxide Level 27.7 MEQ/L (21.0-32.0) Anion Gap 9 MEQ/L (5-15) Blood Urea Nitrogen 31 MG/DL (7-18) Creatinine 1.74 MG/DL (0.50-1.00) Estimat Glomerular Filtration 28 ML/MIN (>89) Rate Random Glucose 102 MG/DL (74-106) Calcium Level 9.3 MG/DL (8.5-10.1) Magnesium Level 2.0 MG/DL (1.5-2.5) Result Diagram: 12/01/16 0735 12/01/16 0735 (1) CHF exacerbation (2) Afib Problem Qualifiers (1) CHF exacerbation: Qualified Code: I50.23 - Acute on chronic systolic congestive heart failure Yvette Gooden December 01, 2016 12:35
--- NOTE | 2016-12-01 17:50 | MB ---
cc: TAMIE GILLIS MD DATE OF CONSULTATION: 12/01/2016 REASON FOR CONSULTATION: Elevated BUN and creatinine for evaluation. HISTORY OF PRESENT ILLNESS This is a 81-year-old female with past medical history of hypertension, diabetes mellitus, ischemic heart disease, chronic kidney disease, atrial fibrillation, who came to the hospital because of increased swelling of the legs and worsening shortness of breath. I was called to see the patient because of elevated BUN and creatinine. The patient has creatinine of 1.7 on admission which improved to 1.4-1.5 and now it is again 1.7, according to the family the patient was told that she has chronic kidney disease and she was admitted at [facility], this was about a month ago. She has not been seen by any solder making laborer as an outpatient. At that time she also has swelling in the legs and she was given Lasix 40 mg which she was taking at home. The swelling in the legs was gradually getting worse and also having more trouble breathing has decreased appetite, nausea. There is no vomiting. No history of diarrhea. No dysuria, hematuria, not taking any nonsteroidal anti-inflammatory drugs. She did not notice any decrease in the urine output. PAST MEDICAL HISTORY 1. Hypertension 2. Diabetes mellitus 3. Atrial fibrillation 4. Ischemic heart disease. 5. Gastroesophageal reflux disease 6. Hyperlipidemia. 7. Chronic kidney disease. PAST SURGICAL HISTORY: Cholecystectomy. Hysterectomy surgery, pacemaker insertion in 2011. REVIEW OF SYSTEMS The patient has generalized weakness, feeling tired. There is no history of fever. No headache, dizziness or blurring of vision, and she has gradual worsening of shortness of breath, mild cough which is mainly dry. No abdominal pain. No dysuria, hematuria, did not notice any decrease in the urine output. She has gradual worsening of the swelling of the legs not taking any nonsteroidal anti-inflammatory drugs, SOCIAL HISTORY The patient is single. She lives with her son stopped smoking in 2003 to smoke about one pack per days for long time. There is no history of heavy alcoholism FAMILY HISTORY: Family history is positive for diabetes and heart disease from both maternal and paternal sides. ALLERGIES CODEINE IBUPROFEN MEDICATIONS Currently 1. She is on metoprolol 100 mg b.i.d. 2. Furosemide 40 mg b.i.d. 3. Potassium chloride 20 mg once a day. 4. Cardizem and 120 mg once a day. 5. Protonix 40 mg daily. 6. Lisinopril 5 mg once a day. 7. Pravachol 80 mg q.h.s. 8. Insulin per sliding scale. PHYSICAL EXAMINATION: IN GENERAL: On examination the patient is awake, alert. She is not in acute distress. VITAL SIGNS: Blood pressure is 107/67 temperature 98.2, oxygen saturation 96-97%. The lowest blood pressure recorded 98/56. HEAD, EYES, EARS, NOSE, AND THROAT: Pupils reactive to light. Nonicteric sclera, conjunctiva pale. NECK: Supple. JVD slightly elevated. LUNGS: The patient has bilateral decreased air entry with basilar rales. HEART: S1, S2, regular rhythm. ABDOMEN: Abdomen is soft lax. There is mild epigastric tenderness. There is no rebound rigidity. Bowel sounds positive. EXTREMITIES: She has bilateral 1+ edema. LABORATORY FINDINGS: Investigation WBC count is 9.4, hemoglobin 10.3, platelet count of 216, neutrophils 76.3%, sodium 38. Potassium 4.0, chloride 101, bicarb 27.7, BUN 31, creatinine 1.7. Calcium 9.3. Magnesium 2.0, glucose 102, INR 2.2. Urinalysis showing that there is no protein, RBC 5, rare bacteria. IMAGING STUDIES The patient had ultrasound of the lower extremities done which was negative for deep vein thrombosis. Chest x-ray was done which shows cardiomegaly and some vascular congestion. No infiltrate. The patient just had cardiac catheterization done which shows that the patient has triple vessel disease. ASSESSMENT/PLAN 1. Chronic kidney disease. 2. Ischemic heart disease 3. Atrial fibrillation 4. Diabetes mellitus 5. Anemia. 6. Edema and congestive heart failure. 7. The patient has low ejection fraction of 35-40%. She is currently on diuretics. The patient has no proteinuria most likely the patient has chronic kidney disease because of hypertensive or diabetic renal disease. 8. I will get the ultrasound of the kidneys and also check the serum protein electrophoresis since the patient has anemia also and check the phosphorus level in the morning. 9. I agree with continuing the diuretics at present I discussed with the family about possibility of worsening kidney function with the contrast which she already received and possibility of worsening. 10. We will consider for her to go for coronary artery bypass grafting. To the point that she probably will need dialysis. In most cases it will be temporary but it can be per minute. The family has not decided yet, at present to continue the diuretics and avoid any nephrotoxins. Thank you for the consultation. I will follow the patient while she is in the hospital MD DAWIT Arguello/arlene /4:25 PM /5:25 PM
[2016-12-01 19:06] LABS: INTERNATIONAL NORMALIZED RATIO 1.3 RATIO
--- NOTE | 2016-12-01 23:13 | RADRPT ---
EXAM DATE/TIME: 12/01/2016 22:24 [place] COMPARISON: No previous studies available for comparison. INDICATIONS : Increased BUN and Creatinine. MEDICAL HISTORY : Chronic obstructive pulmonary disease. Arthritis. Congestive heart failure. Afib. Diabetes. SURGICAL HISTORY : Hysterectomy. Pacemaker. Cholecystectomy. ENCOUNTER: Initial ACUITY: 1 day PAIN SCORE: 0/10 LOCATION: Bilateral flank MEASUREMENTS: RIGHT KIDNEY: 9.5 x 4.5 x 4.0 cm LEFT KIDNEY: 9.4 x 4.5 x 4.9 cm FINDINGS: Kidneys are mildly echogenic and atrophic. No hydronephrosis and no focal renal mass. Bladder wall is mildly thickened cysts. CONCLUSION: 1. Atrophic kidneys. Mild thickening of the bladder wall of unknown etiology. Lex Uribe MD on December 01, 2016 at 23:10 Board Certified Radiologist. This report was verified electronically.
[2016-12-01] MEDS: PRAVASTATIN SOD 80 MG TAB PO SCH (23:33)
[2016-12-01] MEDS: SODIUM CHLORIDE 0.9% FLUSH 10 ML FLUSH SCH (23:34)
[2016-12-02] VITALS (23 sets, daily range): BP systolic 94–118; BP diastolic 58–87; PULSE 8–135; RESP 16–20; TEMP 97.3–98.1; O2SAT 95–100
[2016-12-02 05:09] LABS: AUTOMATED NEUTROPHIL # 5.3 TH/MM3 (1.8-7.7); BASOPHIL % 0.7 % (0.0-2.0); EOSINOPHIL # 0.1 TH/MM3 (0-0.4); EOSINOPHIL % 1.1 % (0.0-4.0); HEMATOCRIT 31.2 % (35.0-46.0); HEMO FLAGS DIFF FINAL; LYMPH % 13.6 % (9.0-44.0); MEAN CORPUSCULAR HGB CONC 31.8 % (32.0-36.0); MONO % 11.3 % (0.0-8.0); NEUT % 73.3 % (16.0-70.0); PLATELET COUNT 211 TH/MM3 (150-450); RED BLOOD COUNT 3.67 MIL/MM3 (4.00-5.30); RED CELL DISTRIBUTION WIDTH 17.9 % (11.6-17.2); WHITE BLOOD COUNT 7.3 TH/MM3 (4.0-11.0)
[2016-12-02 05:16] LABS: BICARBONATE 27.7 MEQ/L (21.0-32.0); POTASSIUM 4.4 MEQ/L (3.5-5.1)
[2016-12-02 05:18] LABS: HDL CHOLESTEROL 20.7 MG/DL (40.0-60.0)
[2016-12-02 05:22] LABS: BICARBONATE 27.2 MEQ/L (21.0-32.0); POTASSIUM 4.4 MEQ/L (3.5-5.1)
[2016-12-02 05:23] LABS: TOTAL PROTEIN SPE 6.7 GM/DL (6.0-7.6)
[2016-12-02] MEDS: INSULIN ASPART SUPPLEMENTAL SCALE SQ SCH ×4 (05:35→20:08)
[2016-12-02] MEDS: LISINOPRIL 5 MG TAB PO SCH (09:00)
--- NOTE | 2016-12-02 09:07 | HHI.PR ---
Subjective Remarks Follow-up CHF, coronary artery disease. Status post cardiac catheterization with severe CAD. Cardiothoracic surgery and nephrology were consulted. Patient reporting shortness of breath this morning. She has been off her oxygen. Denies chest pain currently. Objective Vitals Vital Signs Date Time Temp Pulse Resp B/P Pulse Ox O2 Delivery O2 Flow Rate FiO2 12/02/16 05:24 98.1 101 16 104/58 95 12/02/16 05:00 8 12/02/16 04:00 92 12/02/16 03:00 97 12/02/16 02:00 104 12/02/16 01:09 97.3 135 16 117/87 96 12/02/16 01:00 114 12/02/16 00:00 116 12/01/16 23:00 123 12/01/16 22:36 99 Room Air 12/01/16 22:00 110 12/01/16 21:00 118 12/01/16 20:03 97.6 110 16 121/77 99 12/01/16 20:00 102 12/01/16 19:00 90 12/01/16 18:19 83 12/01/16 17:12 77 12/01/16 16:13 73 12/01/16 15:00 81 12/01/16 15:00 98.2 85 17 107/67 97 12/01/16 14:08 89 12/01/16 13:00 76 12/01/16 12:00 78 12/01/16 11:45 86 20 110/72 96 I/O 12/01/16 12/01/16 12/01/16 12/02/16 12/02/16 12/02/16 07:00 15:00 23:00 07:00 15:00 23:00 Intake Total 0 ml 560 ml 240 ml Output Total 550 ml 150 ml 300 ml Balance -550 ml 410 ml -60 ml Intake Oral 0 ml 360 ml 240 ml IV Total 200 ml Output Urine Total 550 ml 150 ml 300 ml # Bowel Movements 0 2 Result Diagram: 12/02/16 0437 12/02/16 0437 Imaging Last Impressions Renal Ultrasound 12/01/16 0000 Signed Impressions: Service Date/Time: Thursday, December 01, 2016 22:24 - CONCLUSION: 1. Atrophic kidneys. Mild thickening of the bladder wall of unknown etiology. Lex Uribe MD Lower Extremity Ultrasound 11/30/16 0000 Signed Impressions: Service Date/Time: November 09:59 - CONCLUSION: Normal examination. Nam Strickland MD Chest X-Ray 11/29/16 0000 Signed Impressions: Service Date/Time: Tuesday, November 29, 2016 10:12 - CONCLUSION: 1. Cardiomegaly with pulmonary vascular engorgement. No infiltrates. 2. Tiny left effusion. Prem Noland Jr., MD Foot X-Ray 11/28/16 0000 Signed Impressions: Service Date/Time: Monday, November 28, 2016 13:05 - CONCLUSION: 1. No acute bony abnormality identified. Obed Hurtado MD Objective Remarks General: Elderly female in no acute distress. Sitting up in a chair. Heart: Regular rate and rhythm. No murmur. Lungs: Bilateral rhonchi. Breathing is nonlabored. Abdomen: Soft, nontender, nondistended. Extremities: No lower extremity edema. Psych: Alert and oriented. Procedures None Urinary Catheter: No Vascular Central Line Catheter: No A/P Problem List: (1) CHF exacerbation ICD Code: I50.9 Status: Acute (2) Atrial fibrillation ICD Code: I48.91 Status: Chronic (3) Diabetes mellitus ICD Code: E11.9 Status: Chronic (4) Right foot pain ICD Code: M79.671 Status: Acute (5) Chronic systolic CHF (congestive heart failure) ICD Code: I50.22 Status: Chronic (6) Acute worsening of stage 3 chronic kidney disease ICD Code: N18.3 Status: Acute (7) Coronary artery disease ICD Code: I25.10 Status: Acute Assessment and Plan 1. Acute exacerbation of chronic systolic congestive heart failure: Appreciate cardiology recommendations. Continue Lasix. Swelling has improved. 2. Acute worsening of chronic kidney disease stage III: Creatinine remains elevated. Monitor labs. Appreciate nephrology recommendations. Renal ultrasound report noted. 3. Dyspnea, hypoxia: Secondary to CHF. Respiratory walk test showed no need for home oxygen on 11/29/16. 4. Diabetes mellitus type 2: Metformin on hold secondary to elevated creatinine. Monitor Accu-Cheks and cover with sliding scale insulin. 5. Right foot pain: Appreciate podiatry recommendations. 6. Right lower extremity edema: Keep elevated. Continue diuretics. Ultrasound negative for DVT. 7. DVT prophylaxis: Xarelto on hold prior in anticipation of surgery. 8. Coronary artery disease: Status post cardiac catheterization. Patient apparently has severe CAD. Cardiothoracic surgery has been consulted. Patient is considering surgical options and will discuss this further with her family today. Problem Qualifiers (1) CHF exacerbation: Qualified Code: I50.23 - Acute on chronic systolic congestive heart failure (2) Diabetes mellitus: Ashish Mahoney MD December 02, 2016 09:06
[2016-12-02] MEDS: POTASSIUM CHLORIDE 20 MEQ CONTROLLED RELEASE TAB PO SCH (09:14)
[2016-12-02] MEDS: PANTOPRAZOLE SOD 40 MG DELAYED RELEASE TAB PO SCH (09:14)
[2016-12-02] MEDS: METOPROLOL TARTRATE 100 MG TAB PO SCH ×2 (09:14→20:14)
[2016-12-02] MEDS: FUROSEMIDE 40 MG TAB PO SCH ×2 (09:14→17:38)
[2016-12-02] MEDS: DILTIAZEM-CD 120 MG CAP ER PO SCH (09:14)
[2016-12-02] MEDS ORDERED: RESP: ALBUTEROL 1.25 MG/3 ML NEB (PRN) NEB (09:15)
[2016-12-02] MEDS: SODIUM CHLORIDE 0.9% FLUSH 10 ML FLUSH SCH ×2 (09:15→20:15)
--- NOTE | 2016-12-02 10:34 | HHI.NPPN ---
Subjective General Problems: Anemia, Edema, Heart Disease Renal Failure: Chronic, Acute, Stage III History of Present Illness 81-year-old female with past medical history of hypertension, diabetes mellitus, ischemic heart disease, chronic kidney disease, atrial fibrillation, who came to the hospital because of increased swelling of the legs and worsening shortness of breath. I was called to see the patient because of elevated BUN and creatinine. The patient has creatinine of 1.7 on admission. Additional Remarks Patient is alert, sitting on chair, mild SOB, no chest pain. Review of Systems General Constitutional: Fatigue Respiratory Lungs: SOB, Cough, Wheeze Cardiovascular Cardiac: Chest Pain, WOODRUFF Objective Data Data 12/01/16 12/02/16 19:00 07:00 Intake Total 560 ml 240 ml Output Total 150 ml 300 ml Balance 410 ml -60 ml Intake Oral 360 ml 240 ml IV Total 200 ml Output Urine Total 150 ml 300 ml # Bowel Movements 2 Vital Signs Date Time Temp Pulse Resp B/P Pulse Ox O2 Delivery O2 Flow Rate FiO2 12/02/16 10:00 95 12/02/16 08:52 81 12/02/16 07:41 97 Nasal Cannula 2.00 12/02/16 07:41 97.9 91 18 94/66 99 12/02/16 07:41 91 12/02/16 05:24 98.1 101 16 104/58 95 12/02/16 05:00 8 12/02/16 04:00 92 12/02/16 03:00 97 12/02/16 02:00 104 12/02/16 01:09 97.3 135 16 117/87 96 12/02/16 01:00 114 12/02/16 00:00 116 12/01/16 23:00 123 12/01/16 22:36 99 Room Air 12/01/16 22:00 110 12/01/16 21:00 118 12/01/16 20:03 97.6 110 16 121/77 99 12/01/16 20:00 102 12/01/16 19:00 90 12/01/16 18:19 83 12/01/16 17:12 77 12/01/16 16:13 73 12/01/16 15:00 81 12/01/16 15:00 98.2 85 17 107/67 97 12/01/16 14:08 89 12/01/16 13:00 76 12/01/16 12:00 78 12/01/16 11:45 86 20 110/72 96 -: 12/02/16 0437 [id number]/02/16436 Physical Exam General Appearance: No Acute Distress, Comfortable Eyes Eye Exam: Pupils Equal Neck Neck Exam: Neck Supple Pulmonary Resp Exam: No Distress, Rhonchi, Sputum, Decreased Bases, Diminished Breath Sounds Cardiology CV Exam: Regular, Normal Sinus Rhythm Gastrointestinal/Abdomen GI Exam: Soft, Non-Tender, Bowel Sounds Present Extremeties Extremities Exam: Trace Edema Neurologic Neuro Exam: Alert, Awake, Oriented Psychiatric Psych Exam: Appropriate Responses Assessment/Plan Assessment Summary: NOEMI/Acute Renal Failure, Fluid/Volume Overload, CHF, Hypertension, CKD Stage III Problem List: (1) CHF exacerbation (2) Atrial fibrillation (3) Diabetes mellitus (4) Chronic systolic CHF (congestive heart failure) (5) Coronary artery disease (6) Acute worsening of stage 3 chronic kidney disease Plan Patient has been non oliguric. Creatinine is stable at 1.6. On Lasix, and KCl. BP is on lower side, no dizziness. Seen by Cardiac surgery. Family to decide about CABG. I discussed with them about possibility of worsening renal function with the CABG. Continue Lasix and follow BMP. Problem Qualifiers (1) CHF exacerbation: Qualified Code: I50.23 - Acute on chronic systolic congestive heart failure (2) Diabetes mellitus: Viridiana Ch MD December 02, 2016 10:34
--- NOTE | 2016-12-02 11:49 | PD.CARD.PN ---
Subjective Subjective Remarks alert in nad Objective Vital Signs / I&O Vital Signs Date Time Temp Pulse Resp B/P Pulse Ox O2 Delivery O2 Flow Rate FiO2 12/02/16 11:18 81 12/02/16 11:18 97.8 97 18 118/67 100 12/02/16 10:00 95 12/02/16 08:52 81 12/02/16 07:41 97 Nasal Cannula 2.00 12/02/16 07:41 97.9 91 18 94/66 99 12/02/16 07:41 91 12/02/16 05:24 98.1 101 16 104/58 95 12/02/16 05:00 8 12/02/16 04:00 92 12/02/16 03:00 97 12/02/16 02:00 104 12/02/16 01:09 97.3 135 16 117/87 96 12/02/16 01:00 114 12/02/16 00:00 116 12/01/16 23:00 123 12/01/16 22:36 99 Room Air 12/01/16 22:00 110 12/01/16 21:00 118 12/01/16 20:03 97.6 110 16 121/77 99 12/01/16 20:00 102 12/01/16 19:00 90 12/01/16 18:19 83 12/01/16 17:12 77 12/01/16 16:13 73 12/01/16 15:00 81 12/01/16 15:00 98.2 85 17 107/67 97 12/01/16 14:08 89 12/01/16 13:00 76 12/01/16 12:00 78 I/O 12/01/16 12/01/16 12/01/16 12/02/16 12/02/16 12/02/16 07:00 15:00 23:00 07:00 15:00 23:00 Intake Total 0 ml 560 ml 240 ml Output Total 550 ml 150 ml 300 ml Balance -550 ml 410 ml -60 ml Intake Oral 0 ml 360 ml 240 ml IV Total 200 ml Output Urine Total 550 ml 150 ml 300 ml # Bowel Movements 0 2 Physical Exam GENERAL: SKIN: Warm and dry. HEAD: Normocephalic. EYES: No scleral icterus. No injection or drainage. NECK: Supple, trachea midline. No JVD or lymphadenopathy. CARDIOVASCULAR: Regular rate and rhythm without murmurs, gallops, or rubs. RESPIRATORY: Breath sounds equal bilaterally. No accessory muscle use. GASTROINTESTINAL: Abdomen soft, non-tender, nondistended. MUSCULOSKELETAL: No cyanosis, or edema. BACK: Nontender without obvious deformity. No CVA tenderness. Laboratory Laboratory Tests Test 12/01/16 12/02/16 18:50 04:37 Prothrombin Time 15.0 SEC Prothromb Time International 1.3 RATIO Ratio White Blood Count 7.3 TH/MM3 Red Blood Count 3.67 MIL/MM3 Hemoglobin 9.9 GM/DL Hematocrit 31.2 % Mean Corpuscular Volume 85.0 FL Mean Corpuscular Hemoglobin 27.0 PG Mean Corpuscular Hemoglobin 31.8 % Concent Red Cell Distribution Width 17.9 % Platelet Count 211 TH/MM3 Mean Platelet Volume 10.2 FL Neutrophils (%) (Auto) 73.3 % Lymphocytes (%) (Auto) 13.6 % Monocytes (%) (Auto) 11.3 % Eosinophils (%) (Auto) 1.1 % Basophils (%) (Auto) 0.7 % Neutrophils # (Auto) 5.3 TH/MM3 Lymphocytes # (Auto) 1.0 TH/MM3 Monocytes # (Auto) 0.8 TH/MM3 Eosinophils # (Auto) 0.1 TH/MM3 Basophils # (Auto) 0.0 TH/MM3 CBC Comment DIFF FINAL Differential Comment Sodium Level 140 MEQ/L Potassium Level 4.4 MEQ/L Chloride Level 104 MEQ/L Carbon Dioxide Level 27.2 MEQ/L Anion Gap 9 MEQ/L Blood Urea Nitrogen 28 MG/DL Creatinine 1.66 MG/DL Estimat Glomerular Filtration 30 ML/MIN Rate Random Glucose 105 MG/DL Calcium Level 8.9 MG/DL Phosphorus Level 3.4 MG/DL Total Creatine Kinase 18 U/L B-Type Natriuretic Peptide 715 PG/ML Total Protein 6.7 GM/DL Triglycerides Level 77 MG/DL Cholesterol Level 78 MG/DL LDL Cholesterol 42 MG/DL HDL Cholesterol 20.7 MG/DL Cholesterol/HDL Ratio 3.76 RATIO Assessment and Plan Problem List: (1) CHF exacerbation (2) Afib Assessment and Plan 1.) Chf -suboptimally controlled due to lm cad, has been tachycardic and hypotensive, continue diuresis, f/u bnp in am, yuni held due to arf and hypotension; 2.) AFib - rate controlled on cardizem and lopressor, hold xarelto for cath, on iv heparin 3.) wide complex tachycardia - consult Dr Atkinson 4.) CAD - patient leaning toward cabg with Dr Lora. continue heparin Problem Qualifiers (1) CHF exacerbation: Qualified Code: I50.23 - Acute on chronic systolic congestive heart failure Arturo Murillo MD December 02, 2016 11:49
--- NOTE | 2016-12-02 16:27 | EKG ---
Date Performed: 12/01/2016 Time Performed: 12:31:58 PTAGE: 81 years EKG: Atrial fibrillation with PVC(s) or aberrant ventricular conduction. Left axis deviation Inf erior infarct - age undetermined Possible anterior infarct - age undetermined Lateral T wave changes may be due to myocardial ischemia Generalized low QRS voltages Abnormal ECG PREVIOUS TRACING : 11/25/2016 10.25 Compared to prior tracing no significant change DOCTOR: María Packer Interpretating Date/Time 12/02/2016 16:26:47
--- NOTE | 2016-12-02 17:38 | MR ---
cc: MANSI YUSUF M.D. DATE: 12/01/2016. PROCEDURES PERFORMED: 1. Right heart catheterization. 2. Left heart catheterization. 3. Left ventriculography. 4. Coronary angiography. INDICATIONS FOR THE PROCEDURE: Cardiomyopathy. Congestive heart failure. [place] Heart Association Class 4 anginal equivalent with severe dyspnea. [place] Cardiovascular Society class 4 angina. Coronary artery disease. Orthopnea. Decompensated congestive heart failure. Cardiorenal syndrome. DESCRIPTION OF THE PROCEDURE IN DETAIL: The patient was brought to the cardiac catheterization laboratory and prepped and draped in the usual sterile fashion. 10 cc of 1% lidocaine was used to locally anesthetize the right common femoral artery. A 4 Slovenian sheath was placed in the right common femoral artery and a 5 [place]ian sheath placed in the right common femoral vein. The patient was also given 500 normal saline prior to the procedure. Right heart catheterization was performed first. I was not able to advance the balloon into the pulmonary artery due to severe tricuspid regurgitation. We did get an right ventricular pressure which was 28/15/19. RA pressure 24/25/22. FA sat was 98.2% on three liters nasal cannula. Left heart catheterization was then performed with the following findings: LV pressure was 130/20-21. Ejection fraction 35% to 40%. Appears to be global hypokinesis. I do not see any obvious focal segmental wall abnormalities. The right coronary is dominant and it is fibrocalcific diffusely throughout most of its length. It has a long diffuse somewhat sequential 70% stenosis in the mid segment. The right PDA has mild disease in the mid segment up to 30% angiographically. The right GIL is a small vessel, probably 1 mm in diameter. The left main coronary has a distal 70% stenosis. The left circumflex vessel has a proximal 70% stenosis. The mid circumflex has 40% to 50% stenosis. The first obtuse marginal vessel has a long fibrocalcific 20% to 30% stenosis. The left anterior descending is not transapical and appears to be heavily fibrocalcific in the proximal to mid segment. It is indeterminate whether there is an old calcified dissection there versus just excess calcium and cannot rule out a high-grade lesion versus some degree of artifact from heavy calcification. The vessel is very tortuous in this segment. CONCLUSIONS: 1. Severe left main and three-vessel coronary artery disease as detailed above. 2. Cardiomyopathy with ejection fraction of 35% to 40%. 3. History of severe tricuspid regurgitation. 4. Chronic atrial fibrillation.. 5. Wide complex tachycardia. RECOMMENDATIONS: 1. Recommend CABG with BOUDREAUX to the left anterior descending and vein graft to circumflex marginal. Vein graft to right coronary artery and/or right posterior descending artery. 2. I have consulted Dr. Tatiana Lora and we have reviewed the films together. Dr. Lora is going to assess the patient's record and determine the risks and benefits of CABG. 3. Will continue to hold the Xarelto. 4. Will re-start the patient on heparin drip with no bolus four hours after the 4-Slovenian sheath is out. 5. The patient is already optimally medicated with 100 twice a day of Lopressor, lisinopril, 80 of Pravachol. 6. Also need to follow up her BNP closely given what appears to be a probable cardiorenal syndrome. MD GUILLAUME Herrera/JCMaximo /10:32 AM /5:24 PM
[2016-12-02] MEDS: PRAVASTATIN SOD 80 MG TAB PO SCH (20:14)
[2016-12-03] VITALS (23 sets, daily range): BP systolic 106–114; BP diastolic 60–80; PULSE 64–122; RESP 18; TEMP 97.7–98.2; O2SAT 96–100
[2016-12-03] MEDS: HEPARIN-D5W INJ 250 ML IV SCH (05:40)
[2016-12-03] MEDS: INSULIN ASPART SUPPLEMENTAL SCALE SQ SCH ×4 (05:40→20:41)
[2016-12-03 05:51] LABS: HEMATOCRIT 29.3 % (35.0-46.0); MEAN CELL VOLUME 85.5 FL (80.0-100.0); MEAN CORPUSCULAR HEMOGLOBIN 26.8 PG (27.0-34.0); MEAN CORPUSCULAR HGB CONC 31.3 % (32.0-36.0); PLATELET COUNT 173 TH/MM3 (150-450); RED BLOOD COUNT 3.42 MIL/MM3 (4.00-5.30); RED CELL DISTRIBUTION WIDTH 18.2 % (11.6-17.2); REVIEW FLAG FINAL; WHITE BLOOD COUNT 5.7 TH/MM3 (4.0-11.0)
[2016-12-03 05:56] LABS: APTT (PATIENT) 27.2 SEC (24.3-30.1); INTERNATIONAL NORMALIZED RATIO 1.2 RATIO; PROTHROMBIN TIME - PATIENT 13.6 SEC (9.8-11.6)
[2016-12-03] MEDS: DILTIAZEM-CD 120 MG CAP ER PO SCH (08:18)
[2016-12-03] MEDS: POTASSIUM CHLORIDE 20 MEQ CONTROLLED RELEASE TAB PO SCH (08:18)
[2016-12-03] MEDS: PANTOPRAZOLE SOD 40 MG DELAYED RELEASE TAB PO SCH (08:18)
[2016-12-03] MEDS: METOPROLOL TARTRATE 100 MG TAB PO SCH ×2 (08:19→20:40)
[2016-12-03] MEDS: FUROSEMIDE 40 MG TAB PO SCH ×2 (08:19→17:00)
[2016-12-03] MEDS: LISINOPRIL 5 MG TAB PO SCH (08:19)
[2016-12-03] MEDS: SODIUM CHLORIDE 0.9% FLUSH 10 ML FLUSH SCH ×2 (08:20→20:41)
--- NOTE | 2016-12-03 09:00 | HHI.PR ---
Subjective Remarks Follow up CAD, CHF. Patient denies chest pain. Does report ongoing dyspnea. A little more swelling in her legs today, L>R. she states that she spoke with her family yesterday and they have decided that she should have the surgery. Objective Vitals Vital Signs Date Time Temp Pulse Resp B/P Pulse Ox O2 Delivery O2 Flow Rate FiO2 12/03/16 08:27 88 12/03/16 07:23 Room Air 12/03/16 07:23 64 12/03/16 07:23 97.7 64 18 106/80 100 12/03/16 06:00 93 12/03/16 05:00 94 12/03/16 04:00 86 12/03/16 04:00 97.8 89 18 114/70 97 12/03/16 03:00 99 12/03/16 02:00 95 12/03/16 01:00 109 12/03/16 00:00 Nasal Cannula 2.00 12/03/16 00:00 98.2 97 18 111/80 96 12/03/16 00:00 97 12/02/16 23:00 109 12/02/16 22:00 99 12/02/16 21:00 109 12/02/16 20:00 98.0 110 20 104/70 97 12/02/16 20:00 110 12/02/16 20:00 Nasal Cannula 2.00 12/02/16 18:16 98 12/02/16 17:19 83 12/02/16 16:05 67 12/02/16 15:46 97.4 88 18 114/60 98 12/02/16 15:46 88 12/02/16 14:58 90 12/02/16 13:24 97 12/02/16 12:27 95 12/02/16 11:18 81 12/02/16 11:18 97.8 97 18 118/67 100 12/02/16 10:00 95 I/O 12/02/16 12/02/16 12/02/16 12/03/16 12/03/16 12/03/16 07:00 15:00 23:00 07:00 15:00 23:00 Intake Total 240 ml 840 ml 250 ml Output Total 300 ml 500 ml 900 ml Balance -60 ml 340 ml -650 ml Intake Oral 240 ml 840 ml 240 ml IV Total 10 ml Output Urine Total 300 ml 500 ml 900 ml # Voids 2 # Bowel Movements 2 1 0 Result Diagram: 12/03/16 0542 12/02/16 0437 Imaging Last Impressions Renal Ultrasound 12/01/16 0000 Signed Impressions: Service Date/Time: Thursday, December 01, 2016 22:24 - CONCLUSION: 1. Atrophic kidneys. Mild thickening of the bladder wall of unknown etiology. Lex Uribe MD Lower Extremity Ultrasound 11/30/16 0000 Signed Impressions: Service Date/Time: November 09:59 - CONCLUSION: Normal examination. Nam Strickland MD Chest X-Ray 11/29/16 0000 Signed Impressions: Service Date/Time: Tuesday, November 29, 2016 10:12 - CONCLUSION: 1. Cardiomegaly with pulmonary vascular engorgement. No infiltrates. 2. Tiny left effusion. Prem Noland Jr., MD Foot X-Ray 11/28/16 0000 Signed Impressions: Service Date/Time: Monday, November 28, 2016 13:05 - CONCLUSION: 1. No acute bony abnormality identified. Obed Hurtado MD Objective Remarks General: Elderly female in no acute distress. Sitting up in a chair. Heart: Regular rate and rhythm. No murmur. Lungs: Bilateral rhonchi. Breathing is nonlabored. Abdomen: Soft, nontender, nondistended. Extremities: Trace bilateral lower extremity edema. Psych: Alert and oriented. Procedures None Urinary Catheter: No Vascular Central Line Catheter: No A/P Problem List: (1) CHF exacerbation ICD Code: I50.9 Status: Acute (2) Atrial fibrillation ICD Code: I48.91 Status: Chronic (3) Diabetes mellitus ICD Code: E11.9 Status: Chronic (4) Right foot pain ICD Code: M79.671 Status: Acute (5) Chronic systolic CHF (congestive heart failure) ICD Code: I50.22 Status: Chronic (6) Acute worsening of stage 3 chronic kidney disease ICD Code: N18.3 Status: Acute (7) Coronary artery disease ICD Code: I25.10 Status: Acute (8) Cardiomyopathy ICD Code: I42.9 Status: Acute Assessment and Plan 1. Acute exacerbation of chronic systolic congestive heart failure: Appreciate cardiology recommendations. Continue Lasix. Swelling has improved. 2. Acute worsening of chronic kidney disease stage III: Creatinine remains elevated. Monitor labs. Appreciate nephrology recommendations. Renal ultrasound report noted. 3. Dyspnea, hypoxia: Secondary to CHF. Respiratory walk test showed no need for home oxygen on 11/29/16. 4. Diabetes mellitus type 2: Metformin on hold secondary to elevated creatinine. Monitor Accu-Cheks and cover with sliding scale insulin. 5. Right foot pain: Appreciate podiatry recommendations. 6. Right lower extremity edema: Keep elevated. Continue diuretics. Ultrasound negative for DVT. 7. DVT prophylaxis: Xarelto on hold prior in anticipation of surgery. 8. Coronary artery disease, cardiomyopathy: Status post cardiac catheterization. Patient was found to have severe left main and three-vessel coronary artery disease. Cardiothoracic surgery has been consulted. States that she discussed surgical options with her family, and she has decided to proceed with surgery. Problem Qualifiers (1) CHF exacerbation: Qualified Code: I50.23 - Acute on chronic systolic congestive heart failure (2) Diabetes mellitus: Ashish Mahoney MD December 03, 2016 09:00
--- NOTE | 2016-12-03 09:39 | PD.CARD.PN ---
Subjective Subjective Remarks alert in nad, denies chest pain, off o2 Objective Vital Signs / I&O Vital Signs Date Time Temp Pulse Resp B/P Pulse Ox O2 Delivery O2 Flow Rate FiO2 12/03/16 09:12 91 12/03/16 08:27 88 12/03/16 07:23 Room Air 12/03/16 07:23 64 12/03/16 07:23 97.7 64 18 106/80 100 12/03/16 06:00 93 12/03/16 05:00 94 12/03/16 04:00 86 12/03/16 04:00 97.8 89 18 114/70 97 12/03/16 03:00 99 12/03/16 02:00 95 12/03/16 01:00 109 12/03/16 00:00 Nasal Cannula 2.00 12/03/16 00:00 98.2 97 18 111/80 96 12/03/16 00:00 97 12/02/16 23:00 109 12/02/16 22:00 99 12/02/16 21:00 109 12/02/16 20:00 98.0 110 20 104/70 97 12/02/16 20:00 110 12/02/16 20:00 Nasal Cannula 2.00 12/02/16 18:16 98 12/02/16 17:19 83 12/02/16 16:05 67 12/02/16 15:46 97.4 88 18 114/60 98 12/02/16 15:46 88 12/02/16 14:58 90 12/02/16 13:24 97 12/02/16 12:27 95 12/02/16 11:18 81 12/02/16 11:18 97.8 97 18 118/67 100 12/02/16 10:00 95 I/O 12/02/16 12/02/16 12/02/16 12/03/16 12/03/16 12/03/16 07:00 15:00 23:00 07:00 15:00 23:00 Intake Total 240 ml 840 ml 250 ml Output Total 300 ml 500 ml 900 ml Balance -60 ml 340 ml -650 ml Intake Oral 240 ml 840 ml 240 ml IV Total 10 ml Output Urine Total 300 ml 500 ml 900 ml # Voids 2 # Bowel Movements 2 1 0 Physical Exam GENERAL: SKIN: Warm and dry. HEAD: Normocephalic. EYES: No scleral icterus. No injection or drainage. NECK: Supple, trachea midline. No JVD or lymphadenopathy. CARDIOVASCULAR: Regular rate and rhythm without murmurs, gallops, or rubs. RESPIRATORY: Breath sounds equal bilaterally. No accessory muscle use. GASTROINTESTINAL: Abdomen soft, non-tender, nondistended. MUSCULOSKELETAL: No cyanosis, or edema. BACK: Nontender without obvious deformity. No CVA tenderness. Laboratory Laboratory Tests Test 12/03/16 05:42 White Blood Count 5.7 TH/MM3 Red Blood Count 3.42 MIL/MM3 Hemoglobin 9.2 GM/DL Hematocrit 29.3 % Mean Corpuscular Volume 85.5 FL Mean Corpuscular Hemoglobin 26.8 PG Mean Corpuscular Hemoglobin 31.3 % Concent Red Cell Distribution Width 18.2 % Platelet Count 173 TH/MM3 Mean Platelet Volume 10.1 FL Prothrombin Time 13.6 SEC Prothromb Time International 1.2 RATIO Ratio Activated Partial 27.2 SEC Thromboplast Time Assessment and Plan Problem List: (1) CHF exacerbation (2) Afib Assessment and Plan 1.) Chf -suboptimally controlled due to lm cad, has been tachycardic and hypotensive, continue diuresis, f/u bnp in am, yuni held due to arf and hypotension; 2.) AFib - rate controlled on cardizem and lopressor, hold xarelto for cath, on iv heparin 3.) wide complex tachycardia - consult Dr Atkinson 4.) CAD - patient agrees to cabg with Dr Lora. continue heparin Problem Qualifiers (1) CHF exacerbation: Qualified Code: I50.23 - Acute on chronic systolic congestive heart failure Arturo Murillo MD December 03, 2016 09:39
[2016-12-03 11:59] LABS: APTT (PATIENT) 42.5 SEC (24.3-30.1)
--- NOTE | 2016-12-03 14:00 | HHI.NPPN ---
Subjective General Problems: Anemia, Edema, Heart Disease Renal Failure: Chronic, Acute, Stage III History of Present Illness 81-year-old female with past medical history of hypertension, diabetes mellitus, ischemic heart disease, chronic kidney disease, atrial fibrillation, who came to the hospital because of increased swelling of the legs and worsening shortness of breath. I was called to see the patient because of elevated BUN and creatinine. The patient has creatinine of 1.7 on admission. Additional Remarks Patient is alert, sitting on chair, clinically same, no chest pain. Review of Systems General Constitutional: Fatigue Respiratory Lungs: SOB, Cough, Wheeze Cardiovascular Cardiac: Chest Pain, WOODRUFF Objective Data Data 12/02/16 12/03/16 19:00 07:00 Intake Total 840 ml 250 ml Output Total 500 ml 900 ml Balance 340 ml -650 ml Intake Oral 840 ml 240 ml IV Total 10 ml Output Urine Total 500 ml 900 ml # Voids 2 # Bowel Movements 1 0 Vital Signs Date Time Temp Pulse Resp B/P Pulse Ox O2 Delivery O2 Flow Rate FiO2 12/03/16 13:05 81 12/03/16 12:20 80 12/03/16 11:28 96 12/03/16 11:28 97.8 106 18 113/60 99 12/03/16 10:27 82 12/03/16 09:12 91 12/03/16 08:27 88 12/03/16 07:23 Room Air 12/03/16 07:23 64 12/03/16 07:23 97.7 64 18 106/80 100 12/03/16 06:00 93 12/03/16 05:00 94 12/03/16 04:00 86 12/03/16 04:00 97.8 89 18 114/70 97 12/03/16 03:00 99 12/03/16 02:00 95 12/03/16 01:00 109 12/03/16 00:00 Nasal Cannula 2.00 12/03/16 00:00 98.2 97 18 111/80 96 12/03/16 00:00 97 12/02/16 23:00 109 12/02/16 22:00 99 12/02/16 21:00 109 12/02/16 20:00 98.0 110 20 104/70 97 12/02/16 20:00 110 12/02/16 20:00 Nasal Cannula 2.00 12/02/16 18:16 98 12/02/16 17:19 83 12/02/16 16:05 67 12/02/16 15:46 97.4 88 18 114/60 98 12/02/16 15:46 88 12/02/16 14:58 90 -: 12/03/16 0542 12/02/16 0437 Physical Exam General Appearance: No Acute Distress, Comfortable Eyes Eye Exam: Pupils Equal Neck Neck Exam: Neck Supple Pulmonary Resp Exam: No Distress, Rhonchi, Sputum, Decreased Bases, Diminished Breath Sounds Cardiology CV Exam: Regular, Normal Sinus Rhythm Gastrointestinal/Abdomen GI Exam: Soft, Non-Tender, Bowel Sounds Present Extremeties Extremities Exam: Trace Edema Neurologic Neuro Exam: Alert, Awake, Oriented Psychiatric Psych Exam: Appropriate Responses Assessment/Plan Assessment Summary: NOEMI/Acute Renal Failure, Fluid/Volume Overload, CHF, Hypertension, CKD Stage III Problem List: (1) CHF exacerbation (2) Atrial fibrillation (3) Diabetes mellitus (4) Chronic systolic CHF (congestive heart failure) (5) Coronary artery disease (6) Acute worsening of stage 3 chronic kidney disease Plan Patient has been non oliguric. Creatinine is stable at 1.6. On Lasix, and KCl. Urine out put is better. I discussed with them about possibility of worsening renal function with the CABG. Patient and family decided to go for CABG. Problem Qualifiers (1) CHF exacerbation: Qualified Code: I50.23 - Acute on chronic systolic congestive heart failure (2) Diabetes mellitus: Viridiana Ch MD December 03, 2016 14:00
[2016-12-03] MEDS: PRAVASTATIN SOD 80 MG TAB PO SCH (20:40)
[2016-12-04] VITALS (27 sets, daily range): BP systolic 85–118; BP diastolic 44–72; PULSE 69–128; RESP 16–18; TEMP 97.4–98.2; O2SAT 96–100
[2016-12-04 05:10] LABS: APTT (PATIENT) 44.9 SEC (24.3-30.1)
[2016-12-04] MEDS: INSULIN ASPART SUPPLEMENTAL SCALE SQ SCH ×4 (06:24→21:27)
[2016-12-04] MEDS: PANTOPRAZOLE SOD 40 MG DELAYED RELEASE TAB PO SCH (08:53)
[2016-12-04] MEDS: METOPROLOL TARTRATE 100 MG TAB PO SCH ×2 (08:53→21:20)
[2016-12-04] MEDS: FUROSEMIDE 40 MG TAB PO SCH ×2 (08:53→18:50)
[2016-12-04] MEDS: DILTIAZEM-CD 120 MG CAP ER PO SCH (08:53)
[2016-12-04] MEDS: POTASSIUM CHLORIDE 20 MEQ CONTROLLED RELEASE TAB PO SCH (08:54)
[2016-12-04] MEDS: SODIUM CHLORIDE 0.9% FLUSH 10 ML FLUSH SCH (08:54)
--- NOTE | 2016-12-04 09:02 | MB ---
cc: NIRMALA CATALAN MD DATE OF CONSULTATION 12/01/16 1935 HISTORY OF PRESENT ILLNESS An 81-year-old frail-appearing female presented with shortness of breath for the last few days, also some lower extremity edema, anorexia and some diarrhea, history of chronic atrial fib and also CHF exacerbation with a BNP of 683. Her chest x-ray showed some pulmonary congestion. She improved her breathing after receiving some Lasix. She has a history of chronic atrial fibrillation, had been on Xarelto. Her last dose was on the . She apparently has not been able to follow up with Dr. Chidi Sweeney due to insurance change. She has a pacer in situ left upper chest wall that was placed in 2011. She denied having any chest pain. She apparently lives with her son. She no longer drives. She does not use a walker. She does do her own ADLs at home and she says she does try to help clean up around the house. She underwent echocardiogram which showed mild aortic stenosis, mild MR, EF of 35-40%, left atrial moderately dilated, right atrium also moderately dilated. She underwent cardiac cath this morning by Dr. Murillo, was found to have an EF of 35-40%, left main stenosis of 70%, proximal LAD 80%. The RCA 70%. She also had a bit of an 8-beat run of questionable VT versus aberrancy and Dr. Atkinson was also then consulted. During the time of her admission, she also had some right foot pain, had a negative x-ray and was seen by podiatry for negative workup. PAST MEDICAL HISTORY 1. Chronic atrial fibrillation 2. Diabetes mellitus, 3. Hypertension, 4. Chronic A. fib 5. Gastroesophageal reflux disease, PAST SURGICAL HISTORY 1. Hysterectomy, 2. Cholecystectomy. 3. She had a pacer in situ placed in 2011 for her A. fib. ALLERGIES IBUPROFEN CODEINE MEDICATIONS home meds include 1. Simvastatin 2. Xarelto. 3. Cartia 4. Omeprazole 5. Metformin. 6. Lasix. 7. Metoprolol. 7, Again she has been off the Xarelto since the . Currently, she has been placed on Lisinopril 5 mg. FAMILY HISTORY Noncontributory SOCIAL HISTORY No tobacco or alcohol. Lives with her son. REVIEW OF SYSTEMS As stated above in the H&P otherwise 12 system unremarkable. PHYSICAL EXAMINATION VITAL SIGNS: Blood pressure 110/70, heart rate 78, afebrile, respiratory rate of 20. GENERAL: Patient is awake, alert, no acute distress. HEENT: Head is normocephalic, atraumatic. Pupils equal and reactive. She has upper and lower dentures. NECK: Supple. No JVD. CARDIOVASCULAR: Heart sounds S1-S2, irregular rate and rhythm. No audible rubs or gallops. LUNGS: Diminished in the bases, few basilar crackles. ABDOMEN: Soft, nontender. No masses or organomegaly. EXTREMITIES: Reveal 1+ lower extremity edema. She has some ecchymotic areas in her upper arms. LABORATORY DATA Hemoglobin 10, hematocrit of 33, white cell count 9.4, platelet count 216. Sodium 138, potassium 4.0, BUN of 31, creatinine 1.74, INR 2.2. Again her BNP was 683. IMAGING STUDIES Ultrasound of lower extremities showed no evidence of DVT. Chest x-ray showed cardiopulmonary congestion on admission. CARDIOLOGY STUDIES EKG shows atrial fibrillation rate-controlled at this time. IMPRESSION This is an 81-year-old frail-appearing female with an EF of 35-40%, left main disease of 70%, history of chronic atrial fibrillation, pacer in situ, hyperlipidemia, also acute kidney injury with creatinine of 1.75, concern for worsening since her heart catheterization, diabetes mellitus, CHF, now evaluated for coronary artery bypass grafting. Dr. Catalan spoke directly to the patient and the son and [id number] that they are to discuss whether or not they are going forward with cardiovascular surgery consideration. Dr. Catalan will speak further with this patient and the family this weekend. We will hold on further workup at this time. We would continue her current treatment and medications. If no surgery is pursued by the family then the patient may benefit from palliative care consultation. Dictated by AMANDA Gross Nirmala KNIGHT /3:31 PM /9:03 AM
--- NOTE | 2016-12-04 09:45 | HHI.NPPN ---
Subjective General Problems: Anemia, Edema, Heart Disease Renal Failure: Chronic, Acute, Stage III History of Present Illness 81-year-old female with past medical history of hypertension, diabetes mellitus, ischemic heart disease, chronic kidney disease, atrial fibrillation, who came to the hospital because of increased swelling of the legs and worsening shortness of breath. I was called to see the patient because of elevated BUN and creatinine. The patient has creatinine of 1.7 on admission. Additional Remarks Patient is alert, sitting on chair, no SOB, eating well. Review of Systems General Constitutional: Fatigue Respiratory Lungs: SOB, Cough, Wheeze Cardiovascular Cardiac: Chest Pain, WOODRUFF Objective Data Data 12/03/16 12/04/16 18:59 06:59 Intake Total 1040 ml 250 ml Output Total 200 ml 750 ml Balance 840 ml -500 ml Intake Oral 960 ml 240 ml IV Total 80 ml 10 ml Output Urine Total 200 ml 750 ml # Voids 4 # Bowel Movements 1 0 Vital Signs Date Time Temp Pulse Resp B/P Pulse Ox O2 Delivery O2 Flow Rate FiO2 12/04/16 07:01 101 12/04/16 06:00 79 12/04/16 05:00 74 12/04/16 04:00 72 12/04/16 04:00 Nasal Cannula 2.00 12/04/16 04:00 98.2 72 18 95/67 99 12/04/16 03:00 85 12/04/16 02:00 79 12/04/16 01:00 88 12/04/16 00:00 82 12/04/16 00:00 Nasal Cannula 2.00 12/04/16 00:00 97.9 82 18 107/64 96 12/03/16 23:00 85 12/03/16 22:00 97 12/03/16 21:00 95 12/03/16 20:00 Nasal Cannula 2.00 12/03/16 20:00 Nasal Cannula 2.00 12/03/16 20:00 112 12/03/16 20:00 97.7 112 18 106/70 98 12/03/16 18:10 101 12/03/16 17:15 122 12/03/16 16:06 88 12/03/16 15:15 78 12/03/16 15:15 98.0 75 18 106/69 99 12/03/16 14:05 86 12/03/16 13:05 81 12/03/16 12:20 80 12/03/16 11:28 96 12/03/16 11:28 97.8 106 18 113/60 99 12/03/16 10:27 82 -: 12/03/16 0542 12/02/16 0437 Physical Exam General Appearance: No Acute Distress, Comfortable Eyes Eye Exam: Pupils Equal Neck Neck Exam: Neck Supple Pulmonary Resp Exam: No Distress, Rhonchi, Sputum, Decreased Bases, Diminished Breath Sounds Cardiology CV Exam: Regular, Normal Sinus Rhythm Gastrointestinal/Abdomen GI Exam: Soft, Non-Tender, Bowel Sounds Present Extremeties Extremities Exam: Trace Edema Neurologic Neuro Exam: Alert, Awake, Oriented Psychiatric Psych Exam: Appropriate Responses Assessment/Plan Assessment Summary: NOEMI/Acute Renal Failure, Fluid/Volume Overload, CHF, Hypertension, CKD Stage III Problem List: (1) CHF exacerbation (2) Atrial fibrillation (3) Diabetes mellitus (4) Chronic systolic CHF (congestive heart failure) (5) Coronary artery disease (6) Acute worsening of stage 3 chronic kidney disease Plan Patient has been non oliguric. On Lasix, and KCl. Urine out put is better. I discussed with them about possibility of worsening renal function with the CABG. Patient and family decided to go for CABG. No new BMP, urine out put is good. Problem Qualifiers (1) CHF exacerbation: Qualified Code: I50.23 - Acute on chronic systolic congestive heart failure (2) Diabetes mellitus: Viridiana Ch MD December 04, 2016 09:45
--- NOTE | 2016-12-04 10:24 | HHI.PR ---
Subjective Remarks Follow-up CHF, CAD. Patient still reporting shortness of breath. No chest pain this morning. No other complaints at this time. She states that she is still wanting to have the surgery. Objective Vitals Vital Signs Date Time Temp Pulse Resp B/P Pulse Ox O2 Delivery O2 Flow Rate FiO2 12/04/16 08:45 100 Nasal Cannula 2.00 12/04/16 08:45 97.4 99 18 118/54 100 12/04/16 07:01 101 12/04/16 06:00 79 12/04/16 05:00 74 12/04/16 04:00 72 12/04/16 04:00 Nasal Cannula 2.00 12/04/16 04:00 98.2 72 18 95/67 99 12/04/16 03:00 85 12/04/16 02:00 79 12/04/16 01:00 88 12/04/16 00:00 82 12/04/16 00:00 Nasal Cannula 2.00 12/04/16 00:00 97.9 82 18 107/64 96 12/03/16 23:00 85 12/03/16 22:00 97 12/03/16 21:00 95 12/03/16 20:00 Nasal Cannula 2.00 12/03/16 20:00 Nasal Cannula 2.00 12/03/16 20:00 112 12/03/16 20:00 97.7 112 18 106/70 98 12/03/16 18:10 101 12/03/16 17:15 122 12/03/16 16:06 88 12/03/16 15:15 78 12/03/16 15:15 98.0 75 18 106/69 99 12/03/16 14:05 86 12/03/16 13:05 81 12/03/16 12:20 80 12/03/16 11:28 96 12/03/16 11:28 97.8 106 18 113/60 99 12/03/16 10:27 82 I/O 12/03/16 12/03/16 12/03/16 12/04/16 12/04/16 12/04/16 07:00 15:00 23:00 07:00 15:00 23:00 Intake Total 250 ml 1040 ml 250 ml Output Total 900 ml 200 ml 750 ml Balance -650 ml 840 ml -500 ml Intake Oral 240 ml 960 ml 240 ml IV Total 10 ml 80 ml 10 ml Output Urine Total 900 ml 200 ml 750 ml # Voids 4 # Bowel Movements 0 1 0 Result Diagram: 12/03/16 0542 12/02/16 0437 Imaging Last Impressions Renal Ultrasound 12/01/16 0000 Signed Impressions: Service Date/Time: Thursday, December 01, 2016 22:24 - CONCLUSION: 1. Atrophic kidneys. Mild thickening of the bladder wall of unknown etiology. Lex Uribe MD Lower Extremity Ultrasound 11/30/16 0000 Signed Impressions: Service Date/Time: November 09:59 - CONCLUSION: Normal examination. Nam Strickland MD Chest X-Ray 11/29/16 0000 Signed Impressions: Service Date/Time: Tuesday, November 29, 2016 10:12 - CONCLUSION: 1. Cardiomegaly with pulmonary vascular engorgement. No infiltrates. 2. Tiny left effusion. Prem Noland Jr., MD Foot X-Ray 11/28/16 0000 Signed Impressions: Service Date/Time: Monday, November 28, 2016 13:05 - CONCLUSION: 1. No acute bony abnormality identified. Obed Hurtado MD Objective Remarks General: Elderly female in no acute distress. Sitting up in a chair. Heart: Regular rate and rhythm. No murmur. Lungs: Mild bibasilar crackles. Breathing is nonlabored. Abdomen: Soft, nontender, nondistended. Extremities: Trace bilateral lower extremity edema. Psych: Alert and oriented. Procedures None Urinary Catheter: No Vascular Central Line Catheter: No A/P Problem List: (1) CHF exacerbation ICD Code: I50.9 Status: Acute (2) Atrial fibrillation ICD Code: I48.91 Status: Chronic (3) Diabetes mellitus ICD Code: E11.9 Status: Chronic (4) Right foot pain ICD Code: M79.671 Status: Acute (5) Chronic systolic CHF (congestive heart failure) ICD Code: I50.22 Status: Chronic (6) Acute worsening of stage 3 chronic kidney disease ICD Code: N18.3 Status: Acute (7) Coronary artery disease ICD Code: I25.10 Status: Acute (8) Cardiomyopathy ICD Code: I42.9 Status: Acute Assessment and Plan 1. Acute exacerbation of chronic systolic congestive heart failure: Appreciate cardiology recommendations. Continue Lasix. Swelling has improved. 2. Acute worsening of chronic kidney disease stage III: Creatinine remains elevated. Monitor labs. Appreciate nephrology recommendations. Renal ultrasound report noted. 3. Dyspnea, hypoxia: Secondary to CHF. Respiratory walk test showed no need for home oxygen on 11/29/16. 4. Diabetes mellitus type 2: Metformin on hold secondary to elevated creatinine. Monitor Accu-Cheks and cover with sliding scale insulin. 5. Right foot pain: Appreciate podiatry recommendations. 6. Right lower extremity edema: Keep elevated. Continue diuretics. Ultrasound negative for DVT. 7. DVT prophylaxis: Xarelto on hold prior in anticipation of surgery. 8. Coronary artery disease, cardiomyopathy: Status post cardiac catheterization. Patient was found to have severe left main and three-vessel coronary artery disease. Appreciate cardiothoracic surgery recommendations. The patient discussed surgical options with her family, and she has decided to proceed with surgery. On heparin drip. Problem Qualifiers (1) CHF exacerbation: Qualified Code: I50.23 - Acute on chronic systolic congestive heart failure (2) Diabetes mellitus: Ashish Mahoney MD December 04, 2016 10:24
[2016-12-04 11:26] LABS: BICARBONATE 28.6 MEQ/L (21.0-32.0); POTASSIUM 4.6 MEQ/L (3.5-5.1)
--- NOTE | 2016-12-04 13:31 | PD.CARD.PN ---
Subjective Subjective Remarks alert in nad, denies chest pain Objective Vital Signs / I&O Vital Signs Date Time Temp Pulse Resp B/P Pulse Ox O2 Delivery O2 Flow Rate FiO2 12/04/16 12:01 85 12/04/16 11:45 98.1 98 18 99/46 98 12/04/16 11:00 89 12/04/16 10:01 91 12/04/16 09:00 128 12/04/16 08:45 100 Nasal Cannula 2.00 12/04/16 08:45 97.4 99 18 118/54 100 12/04/16 08:00 96 12/04/16 07:01 101 12/04/16 06:00 79 12/04/16 05:00 74 12/04/16 04:00 72 12/04/16 04:00 Nasal Cannula 2.00 12/04/16 04:00 98.2 72 18 95/67 99 12/04/16 03:00 85 12/04/16 02:00 79 12/04/16 01:00 88 12/04/16 00:00 82 12/04/16 00:00 Nasal Cannula 2.00 12/04/16 00:00 97.9 82 18 107/64 96 12/03/16 23:00 85 12/03/16 22:00 97 12/03/16 21:00 95 12/03/16 20:00 Nasal Cannula 2.00 12/03/16 20:00 Nasal Cannula 2.00 12/03/16 20:00 112 12/03/16 20:00 97.7 112 18 106/70 98 12/03/16 18:10 101 12/03/16 17:15 122 12/03/16 16:06 88 12/03/16 15:15 78 12/03/16 15:15 98.0 75 18 106/69 99 12/03/16 14:05 86 I/O 12/03/16 12/03/16 12/03/16 12/04/16 12/04/16 12/04/16 07:00 15:00 23:00 07:00 15:00 23:00 Intake Total 250 ml 1040 ml 250 ml Output Total 900 ml 200 ml 750 ml Balance -650 ml 840 ml -500 ml Intake Oral 240 ml 960 ml 240 ml IV Total 10 ml 80 ml 10 ml Output Urine Total 900 ml 200 ml 750 ml # Voids 4 # Bowel Movements 0 1 0 Physical Exam GENERAL: SKIN: Warm and dry. HEAD: Normocephalic. EYES: No scleral icterus. No injection or drainage. NECK: Supple, trachea midline. No JVD or lymphadenopathy. CARDIOVASCULAR: Regular rate and rhythm without murmurs, gallops, or rubs. RESPIRATORY: Breath sounds equal bilaterally. No accessory muscle use. GASTROINTESTINAL: Abdomen soft, non-tender, nondistended. MUSCULOSKELETAL: No cyanosis, or edema. BACK: Nontender without obvious deformity. No CVA tenderness. Laboratory Laboratory Tests Test 12/03/16 12/04/16 12/04/16 18:30 04:42 11:01 Activated Partial 46.0 SEC 44.9 SEC Thromboplast Time Sodium Level 139 MEQ/L Potassium Level 4.6 MEQ/L Chloride Level 101 MEQ/L Carbon Dioxide Level 28.6 MEQ/L Anion Gap 9 MEQ/L Blood Urea Nitrogen 31 MG/DL Creatinine 1.83 MG/DL Estimat Glomerular Filtration 26 ML/MIN Rate Random Glucose 150 MG/DL Calcium Level 8.8 MG/DL Assessment and Plan Problem List: (1) CHF exacerbation (2) Afib Assessment and Plan 1.) Chf -suboptimally controlled due to lm cad, has been tachycardic and hypotensive, continue diuresis, f/u bnp in am, yuni held due to arf and hypotension; 2.) AFib - rate controlled on cardizem and lopressor, hold xarelto for cath, on iv heparin 3.) wide complex tachycardia - consult Dr Atkinson 4.) CAD - patient agrees to cabg with Dr Lora. continue heparin Problem Qualifiers (1) CHF exacerbation: Qualified Code: I50.23 - Acute on chronic systolic congestive heart failure Arturo Murillo MD December 04, 2016 13:31
[2016-12-04] MEDS ORDERED: INSULIN REGULAR (IV INFUSION) 100 UNITS in SODIUM CHLORIDE 0.9% INJ 100 ML IV SCH (13:45)
[2016-12-04] MEDS ORDERED: SODIUM CHLORIDE 0.9% FLUSH 10 ML FLUSH IV FLUSH PRN (13:45)
[2016-12-04] MEDS ORDERED: PAPAVERINE INJ 60 MG, NITROGLYCERIN INJ 100 MCG, DILTIAZEM INJ 100 MG in SODIUM CHLORID... IRRIGATION SCH (13:45)
[2016-12-04] MEDS ORDERED: METOPROLOL TARTRATE 25 MG TAB PO SCH (13:45)
[2016-12-04] MEDS ORDERED: CEFAZOLIN INJ 500 MG in SODIUM CHLORIDE 0.9% IRR BTL 500 ML IRRIGATION SCH (13:45)
[2016-12-04] MEDS ORDERED: CHLORHEXIDINE GLUCONATE 4% SOLN 120 ML BTL TOPICAL SCH (13:45)
[2016-12-04] MEDS ORDERED: ceFAZolin 2 GM PREMIX 50 ML IV SCH (13:45)
--- NOTE | 2016-12-04 14:08 | PD.CAR.PN ---
CVT Progress Note Subjective/Hospital Course: 81/ F presented to ED SOB, lower ext edema , CHF exacerbation, BNP 683, chronic afib , recent treatment for pneumonia and UTI. Underwent cardiac cath by Dr Murillo, found to have Left main disease 70%, prox LAD 80%, RCA 70% EF 35-40%, Dr Lora spoke in depth with pt and family on sunday and again today. Patient and family want to proceed with surgery, STS data and risk were discussed in entirety. PMH : HLP, chronic afib on xarelto at home, LD 11/24, DM, HTN, ECHO mild MR, mod dilated left atrium and right atrium BMI 22, CKD baseline 1.75, recent right foot pain (neg workup) 12/04 surgery tentatively scheduled 12/06 full workup pending Objective: GENERAL: SKIN: Warm and dry. poor skin turgor, some ecchymotic areas noted to arms HEAD: Normocephalic. EYES: No scleral icterus. No injection or drainage. NECK: Supple, trachea midline. No JVD or lymphadenopathy. CARDIOVASCULAR: irregular rate and rhythm without murmurs, gallops, or rubs. RESPIRATORY: diminished in bases ,Breath sounds equal bilaterally. No accessory muscle use. GASTROINTESTINAL: Abdomen soft, non-tender, nondistended. MUSCULOSKELETAL: No cyanosis, or edema. BACK: Nontender without obvious deformity. No CVA tenderness. Vital Signs Date Time Temp Pulse Resp B/P Pulse Ox O2 Delivery O2 Flow Rate FiO2 12/04/16 12:01 85 12/04/16 11:45 98.1 98 18 99/46 98 12/04/16 11:00 89 12/04/16 10:01 91 12/04/16 09:00 128 12/04/16 08:45 100 Nasal Cannula 2.00 12/04/16 08:45 97.4 99 18 118/54 100 12/04/16 08:00 96 12/04/16 07:01 101 12/04/16 06:00 79 12/04/16 05:00 74 12/04/16 04:00 72 12/04/16 04:00 Nasal Cannula 2.00 12/04/16 04:00 98.2 72 18 95/67 99 12/04/16 03:00 85 12/04/16 02:00 79 12/04/16 01:00 88 12/04/16 00:00 82 12/04/16 00:00 Nasal Cannula 2.00 12/04/16 00:00 97.9 82 18 107/64 96 12/03/16 23:00 85 12/03/16 22:00 97 12/03/16 21:00 95 12/03/16 20:00 Nasal Cannula 2.00 12/03/16 20:00 Nasal Cannula 2.00 12/03/16 20:00 112 12/03/16 20:00 97.7 112 18 106/70 98 12/03/16 18:10 101 12/03/16 17:15 122 12/03/16 16:06 88 12/03/16 15:15 78 12/03/16 15:15 98.0 75 18 106/69 99 12/03/16 14:05 86 Labs: Laboratory Tests Test 12/04/16 12/04/16 04:42 11:01 Activated Partial 44.9 SEC Thromboplast Time (24.3-30.1) Sodium Level 139 MEQ/L (136-145) Potassium Level 4.6 MEQ/L (3.5-5.1) Chloride Level 101 MEQ/L (98-107) Carbon Dioxide Level 28.6 MEQ/L (21.0-32.0) Anion Gap 9 MEQ/L (5-15) Blood Urea Nitrogen 31 MG/DL (7-18) Creatinine 1.83 MG/DL (0.50-1.00) Estimat Glomerular Filtration 26 ML/MIN (>89) Rate Random Glucose 150 MG/DL (74-106) Calcium Level 8.8 MG/DL (8.5-10.1) Result Diagram: 12/03/16 0542 12/04/16 1101 Telemetry: afib (1) Coronary artery disease Plan: on ASA, statin and BB eval for surgery on sun (2) CHF exacerbation Plan: on diuretics (3) Afib Plan: rate improved, resume xarelto after surgery on Heparin gtt BB cardizem (4) Cardiomyopathy (5) Diabetes mellitus Problem Qualifiers (1) CHF exacerbation: Qualified Code: I50.23 - Acute on chronic systolic congestive heart failure (2) Diabetes mellitus: Yvette Gooden December 04, 2016 14:08
--- NOTE | 2016-12-04 17:16 | RADRPT ---
EXAM DATE/TIME: 12/04/2016 16:12 [facility] COMPARISON: No previous studies available for comparison. INDICATIONS : Pre-op cardiac surgery. MEDICAL HISTORY : Chronic obstructive pulmonary disease. Congestive heart failure. Gastroesophageal reflux disease. A. FIB. Arthritis. Diabetes. SURGICAL HISTORY : Hysterectomy. Cholecystectomy. Pacemaker. Carpal tunnel release. ENCOUNTER: Initial ACUITY: 1 day PAIN SCORE: 3/10 LOCATION: Bilateral neck PEAK SYSTOLIC VELOCITIES (cm/sec): ICA/CCA RATIO: Right: 1.3 Left: 1.8 ICA: Right: 102 Left: 123 CCA: Right: 81 Left: 67 ECA: Right: 52 Left: 73 VERTEBRAL: Right: 43 antegrade Left: 40 antegrade Elevated flow velocities and ICA/CCA ratios have been found to correlate with increased degrees of vessel stenosis, calculated as percentage of diameter relative to a normal segment of distal ICA/CCA FINDINGS: RIGHT CAROTID: Mild eccentric calcific plaquing. LEFT CAROTID: Mild eccentric calcific plaquing. VERTEBRAL ARTERIES: Antegrade flow is seen in both vertebral arteries. MISCELLANEOUS: None. CONCLUSION: No evidence of flow-limiting carotid stenosis. Slava Liu MD on December 04, 2016 at 17:13 Board Certified Radiologist. This report was verified electronically.
--- NOTE | 2016-12-04 17:17 | RADRPT ---
EXAM DATE/TIME: 12/04/2016 15:23 [facility] COMPARISON: No previous studies available for comparison. INDICATIONS : Pre-op cardiac surgery. MEDICAL HISTORY : Chronic obstructive pulmonary disease. Congestive heart failure. Gastroesophageal reflux disease. A. FIB. Arthritis. Diabetes. SURGICAL HISTORY : Hysterectomy.Cholecystectomy. Pacemaker. Carpal tunnel release. ENCOUNTER: Initial ACUITY: 1 day PAIN SCORE: 3/10 LOCATION: Bilateral legs. TECHNIQUE: Venous ultrasound of the left and right leg was performed from the inguinal ligament to the proximal calf. Real-time, color Doppler and spectral tracing, compression and augmentation techniques were us ed. FINDINGS: RIGHT LEG: There is normal compressibility of the deep venous system from the inguinal region to the proximal ca lf. No echogenic clot is seen in the lumen of the common femoral, femoral, popliteal, and posterior tibial veins. There is a normal response of the venous system to proximal and distal augmentation an d respiration. LEFT LEG: There is normal compressibility of the deep venous system from the inguinal region to the proximal ca lf. No echogenic clot is seen in the lumen of the common femoral, femoral, popliteal, and posterior tibial veins. There is a normal response of the venous system to proximal and distal augmentation an d respiration. CONCLUSION: Normal examination. Slava Liu MD on December 04, 2016 at 17:15 Board Certified Radiologist. This report was verified electronically.
[2016-12-04] MEDS: HEPARIN-D5W INJ 250 ML IV SCH (19:27)
[2016-12-04] MEDS: SODIUM CHLORIDE 0.9% FLUSH 10 ML FLUSH IV FLUSH SCH (21:00)
[2016-12-04] MEDS: PRAVASTATIN SOD 80 MG TAB PO SCH (21:20)
[2016-12-04 22:32] LABS: ALBUMIN SPE 3.32 GM/DL (3.50-5.00); ALPHA 1 GLOBULIN 0.31 GM/DL (0.11-0.29); ALPHA 2 GLOBULIN 0.67 GM/DL (0.22-1.00); BETA GLOBULINS (SPE) 0.82 GM/DL (0.53-1.03)
[2016-12-05] VITALS (27 sets, daily range): BP systolic 87–159; BP diastolic 60–81; PULSE 66–118; RESP 16–20; TEMP 97–98.6; O2SAT 96–100
[2016-12-05] MEDS: INSULIN ASPART SUPPLEMENTAL SCALE SQ SCH ×4 (06:09→22:30)
[2016-12-05 06:41] LABS: APTT (PATIENT) 48.5 SEC (24.3-30.1)
[2016-12-05 06:46] LABS: ANION GAP 8 MEQ/L (5-15); BICARBONATE 30.6 MEQ/L (21.0-32.0); BLOOD UREA NITROGEN 34 MG/DL (7-18); CHLORIDE 101 MEQ/L (98-107); GLOMERULAR FILTRATION RATE 26 ML/MIN (>89); POTASSIUM 4.1 MEQ/L (3.5-5.1); SODIUM (NA) 140 MEQ/L (136-145)
[2016-12-05] MEDS: DILTIAZEM-CD 120 MG CAP ER PO SCH (08:15)
[2016-12-05] MEDS: POTASSIUM CHLORIDE 20 MEQ CONTROLLED RELEASE TAB PO SCH (08:15)
[2016-12-05] MEDS: SODIUM CHLORIDE 0.9% FLUSH 10 ML FLUSH IV FLUSH SCH ×2 (08:15→21:00)
[2016-12-05] MEDS: PANTOPRAZOLE SOD 40 MG DELAYED RELEASE TAB PO SCH (08:15)
--- NOTE | 2016-12-05 08:40 | HHI.PR ---
Subjective Remarks Follow up CAD, CHF, renal insufficiency. Patient reports dyspnea with exertion. No chest pain. Surgery planned for tomorrow or . Objective Vitals Vital Signs Date Time Temp Pulse Resp B/P Pulse Ox O2 Delivery O2 Flow Rate FiO2 12/05/16 07:01 93 12/05/16 06:20 79 12/05/16 05:34 94 12/05/16 04:00 108 12/05/16 03:00 98.2 66 150/66 96 12/05/16 03:00 96 12/05/16 02:00 92 12/05/16 01:02 102 12/05/16 00:00 96 12/04/16 23:00 100 12/04/16 23:00 97.6 103 107/72 100 12/04/16 22:00 106 12/04/16 21:00 98 12/04/16 20:00 96 12/04/16 19:00 80 12/04/16 19:00 97.5 86 102/71 100 12/04/16 19:00 Nasal Cannula 2.00 12/04/16 18:01 100 12/04/16 17:00 92 12/04/16 16:00 76 12/04/16 15:45 97.5 73 16 85/44 100 12/04/16 15:00 69 12/04/16 14:01 76 12/04/16 13:00 86 12/04/16 12:01 85 12/04/16 11:45 98.1 98 18 99/46 98 12/04/16 11:00 89 12/04/16 10:01 91 12/04/16 09:00 128 12/04/16 08:45 100 Nasal Cannula 2.00 12/04/16 08:45 97.4 99 18 118/54 100 I/O 12/04/16 12/04/16 12/04/16 12/05/16 12/05/16 12/05/16 07:00 15:00 23:00 07:00 15:00 23:00 Intake Total 250 ml 640 ml 240 ml Output Total 750 ml 300 ml 550 ml Balance -500 ml 340 ml -310 ml Intake Oral 240 ml 480 ml 240 ml IV Total 10 ml 160 ml Output Urine Total 750 ml 300 ml 550 ml # Voids 2 # Bowel Movements 0 1 Result Diagram: 12/03/16 0542 12/05/16 0541 Imaging Last Impressions Lower Extremity Ultrasound 12/04/16 0000 Signed Impressions: Service Date/Time: Sunday, December 04, 2016 15:23 - CONCLUSION: Normal examination. Slava Liu MD Carotid Artery Ultrasound 12/04/16 Signed Impressions: Service Date/Time: Sunday, December 04, 2016 16:12 - CONCLUSION: No evidence of flow-limiting carotid stenosis. Slava Liu MD Renal Ultrasound 12/01/16 Signed Impressions: Service Date/Time: Thursday, December 01, 2016 22:24 - CONCLUSION: 1. Atrophic kidneys. Mild thickening of the bladder wall of unknown etiology. Lex Uribe MD Chest X-Ray 11/29/16 Signed Impressions: Service Date/Time: Tuesday, November 29, 2016 10:12 - CONCLUSION: 1. Cardiomegaly with pulmonary vascular engorgement. No infiltrates. 2. Tiny left effusion. Prem Noland Jr., MD Foot X-Ray 11/28/16 Signed Impressions: Service Date/Time: Monday, November 28, 2016 13:05 - CONCLUSION: 1. No acute bony abnormality identified. Obed Hurtado MD Objective Remarks General: Elderly female in no acute distress. Sitting up in a chair. Heart: Regular rate and rhythm. No murmur. Lungs: Mild bibasilar crackles. Breathing is nonlabored. Abdomen: Soft, nontender, nondistended. Extremities: Trace bilateral lower extremity edema. Psych: Alert and oriented. Procedures None Urinary Catheter: No Vascular Central Line Catheter: No A/P Problem List: (1) CHF exacerbation ICD Code: I50.9 Status: Acute (2) Atrial fibrillation ICD Code: I48.91 Status: Chronic (3) Diabetes mellitus ICD Code: E11.9 Status: Chronic (4) Right foot pain ICD Code: M79.671 Status: Acute (5) Chronic systolic CHF (congestive heart failure) ICD Code: I50.22 Status: Chronic (6) Acute worsening of stage 3 chronic kidney disease ICD Code: N18.3 Status: Acute (7) Coronary artery disease ICD Code: I25.10 Status: Acute (8) Cardiomyopathy ICD Code: I42.9 Status: Acute Assessment and Plan 1. Acute exacerbation of chronic systolic congestive heart failure: Appreciate cardiology recommendations. Continue Lasix. Swelling has improved. 2. Acute worsening of chronic kidney disease stage III: Creatinine remains elevated. Monitor labs. Appreciate nephrology recommendations. Renal ultrasound report noted. 3. Dyspnea, hypoxia: Secondary to CHF. Respiratory walk test showed no need for home oxygen on 11/29/16. 4. Diabetes mellitus type 2: Metformin on hold secondary to elevated creatinine. Monitor Accu-Cheks and cover with sliding scale insulin. 5. Right foot pain: Appreciate podiatry recommendations. 6. Right lower extremity edema: Keep elevated. Continue diuretics. Ultrasound negative for DVT. 7. DVT prophylaxis: Xarelto on hold prior in anticipation of surgery. 8. Coronary artery disease, cardiomyopathy: Status post cardiac catheterization. Patient was found to have severe left main and three-vessel coronary artery disease. Appreciate cardiothoracic surgery recommendations. The patient discussed surgical options with her family, and she has decided to proceed with surgery. On heparin drip. Surgery likely next 1-2 days. Problem Qualifiers (1) CHF exacerbation: Qualified Code: I50.23 - Acute on chronic systolic congestive heart failure (2) Diabetes mellitus: Ashish Mahoney MD December 05, 2016 08:40
[2016-12-05] MEDS: METOPROLOL TARTRATE 100 MG TAB PO SCH ×2 (09:00→21:55)
[2016-12-05] MEDS: FUROSEMIDE 40 MG TAB PO SCH ×2 (09:00→18:08)
--- NOTE | 2016-12-05 09:10 | RADRPT ---
EXAM DATE/TIME: 12/04/2016 15:40 [facility] COMPARISON: No previous studies available for comparison. INDICATIONS : Pre-op cardiac surgery. MEDICAL HISTORY : Chronic obstructive pulmonary disease. Congestive heart failure. Gastroesophageal reflux disease. A. FIB. Arthritis. Diabetes. SURGICAL HISTORY : Cholecystectomy. Hysterectomy. Pacemaker. Carpal tunnel release. ENCOUNTER: Initial ACUITY: 1 day PAIN SCORE: 3/10 LOCATION: Bilateral legs. GREATER SAPHENOUS VEIN THIGH: PROXIMAL: Right 6 mm Left 6 mm MID: Right 3 mm Left 3 mm DISTAL: Right 2 mm Left 3 mm CALF: PROXIMAL: Right 1 mm Left 2 mm MID: Right 1 mm Left 1 mm DISTAL: Right Non-visualized Left Non-visualized FINDINGS: The venous system of the lower extremities are patent by color Doppler imaging. Measurements of the leg veins (in mm) are listed above. CONCLUSION: Patent satisfactory appearance of the saphenous veins bilaterally. Slava Liu MD on December 05, 2016 at 9:08 Board Certified Radiologist. This report was verified electronically.
--- NOTE | 2016-12-05 13:47 | PD.CARD.PN ---
Subjective Subjective Remarks alert in nad Objective Vital Signs / I&O Vital Signs Date Time Temp Pulse Resp B/P Pulse Ox O2 Delivery O2 Flow Rate FiO2 12/05/16 13:01 88 12/05/16 12:00 88 12/05/16 11:30 97.4 85 20 96/75 100 12/05/16 11:00 105 12/05/16 10:01 84 12/05/16 09:00 98 12/05/16 08:45 97.4 106 16 90/60 99 12/05/16 08:45 100 Nasal Cannula 2.00 12/05/16 08:00 110 12/05/16 07:01 93 12/05/16 06:20 79 12/05/16 05:34 94 12/05/16 04:00 108 12/05/16 03:00 98.2 66 150/66 96 12/05/16 03:00 96 12/05/16 02:00 92 12/05/16 01:02 102 12/05/16 00:00 96 12/04/16 23:00 100 12/04/16 23:00 97.6 103 107/72 100 12/04/16 22:00 106 12/04/16 21:00 98 12/04/16 20:00 96 12/04/16 19:00 80 12/04/16 19:00 97.5 86 102/71 100 12/04/16 19:00 Nasal Cannula 2.00 12/04/16 18:01 100 12/04/16 17:00 92 12/04/16 16:00 76 12/04/16 15:45 97.5 73 16 85/44 100 12/04/16 15:00 69 12/04/16 14:01 76 I/O 12/04/16 12/04/16 12/04/16 12/05/16 12/05/16 12/05/16 07:00 15:00 23:00 07:00 15:00 23:00 Intake Total 250 ml 640 ml 240 ml Output Total 750 ml 300 ml 550 ml Balance -500 ml 340 ml -310 ml Intake Oral 240 ml 480 ml 240 ml IV Total 10 ml 160 ml Output Urine Total 750 ml 300 ml 550 ml # Voids 2 # Bowel Movements 0 1 Physical Exam GENERAL: SKIN: Warm and dry. HEAD: Normocephalic. EYES: No scleral icterus. No injection or drainage. NECK: Supple, trachea midline. No JVD or lymphadenopathy. CARDIOVASCULAR: Regular rate and rhythm without murmurs, gallops, or rubs. RESPIRATORY: Breath sounds equal bilaterally. No accessory muscle use. GASTROINTESTINAL: Abdomen soft, non-tender, nondistended. MUSCULOSKELETAL: No cyanosis, or edema. BACK: Nontender without obvious deformity. No CVA tenderness. Laboratory Laboratory Tests Test 12/04/16 12/05/16 12/05/16 16:45 05:41 07:10 Nasal Screen MRSA (PCR) MRSA NOT DETECTED Activated Partial 48.5 SEC Thromboplast Time Sodium Level 140 MEQ/L Potassium Level 4.1 MEQ/L Chloride Level 101 MEQ/L Carbon Dioxide Level 30.6 MEQ/L Anion Gap 8 MEQ/L Blood Urea Nitrogen 34 MG/DL Creatinine 1.87 MG/DL Estimat Glomerular Filtration 26 ML/MIN Rate Random Glucose 100 MG/DL Calcium Level 8.9 MG/DL Blood Type A POSITIVE A POSITIVE Antibody Screen POSITIVE Antibody Identification Anti-E Antigen Identification E Antigen - NEGATIVE Crossmatch Leukocyte-Reduced Red Blood Cells Blood Bank Comment Assessment and Plan Problem List: (1) Coronary artery disease (2) CHF exacerbation (3) Afib (4) Cardiomyopathy (5) Diabetes mellitus Assessment and Plan 1.) Chf -suboptimally controlled due to lm cad, has been tachycardic and hypotensive, continue diuresis, f/u bnp in am, yuni held due to arf and hypotension; 2.) AFib - rate controlled on cardizem and lopressor, hold xarelto for cath, on iv heparin 3.) wide complex tachycardia - consult Dr Atkinson 4.) CAD - fev=.3, not candidate for cabg per Dr Lora. continue heparin, consult palliative care Problem Qualifiers (1) CHF exacerbation: Qualified Code: I50.23 - Acute on chronic systolic congestive heart failure (2) Diabetes mellitus: Arturo Murillo MD December 05, 2016 13:47
--- NOTE | 2016-12-05 13:48 | HHI.NPPN ---
Subjective General Problems: Anemia, Edema, Heart Disease Renal Failure: Chronic, Acute, Stage III History of Present Illness 81-year-old female with past medical history of hypertension, diabetes mellitus, ischemic heart disease, chronic kidney disease, atrial fibrillation, who came to the hospital because of increased swelling of the legs and worsening shortness of breath. I was called to see the patient because of elevated BUN and creatinine. The patient has creatinine of 1.7 on admission. Additional Remarks Patient is alert, sitting on chair, mild SOB. Review of Systems General Constitutional: Fatigue Respiratory Lungs: SOB, Cough, Wheeze Cardiovascular Cardiac: Chest Pain, WOODRU[place] Objective Data Data 12/04/16 12/05/16 18:59 06:59 Intake Total 640 ml 240 ml Output Total 300 ml 550 ml Balance 340 ml -310 ml Intake Oral 480 ml 240 ml IV Total 160 ml Output Urine Total 300 ml 550 ml # Voids 2 # Bowel Movements 1 Vital Signs Date Time Temp Pulse Resp B/P Pulse Ox O2 Delivery O2 Flow Rate FiO2 12/05/16 13:01 88 12/05/16 12:00 88 12/05/16 11:30 97.4 85 20 96/75 100 12/05/16 11:00 105 12/05/16 10:01 84 12/05/16 09:00 98 12/05/16 08:45 97.4 106 16 90/60 99 12/05/16 08:45 100 Nasal Cannula 2.00 12/05/16 08:00 110 12/05/16 07:01 93 12/05/16 06:20 79 12/05/16 05:34 94 12/05/16 04:00 108 12/05/16 03:00 98.2 66 150/66 96 12/05/16 03:00 96 12/05/16 02:00 92 12/05/16 01:02 102 12/05/16 00:00 96 12/04/16 23:00 100 12/04/16 23:00 97.6 103 107/72 100 12/04/16 22:00 106 12/04/16 21:00 98 12/04/16 20:00 96 12/04/16 19:00 80 12/04/16 19:00 97.5 86 102/71 100 12/04/16 19:00 Nasal Cannula 2.00 12/04/16 18:01 100 12/04/16 17:00 92 12/04/16 16:00 76 12/04/16 15:45 97.5 73 16 85/44 100 12/04/16 15:00 69 12/04/16 14:01 76 -: 12/03/16 0542 12/05/16 0541 Physical Exam General Appearance: No Acute Distress, Comfortable Eyes Eye Exam: Pupils Equal Neck Neck Exam: Neck Supple Pulmonary Resp Exam: No Distress, Rhonchi, Sputum, Decreased Bases, Diminished Breath Sounds Cardiology CV Exam: Regular, Normal Sinus Rhythm Gastrointestinal/Abdomen GI Exam: Soft, Non-Tender, Bowel Sounds Present Extremeties Extremities Exam: Trace Edema Neurologic Neuro Exam: Alert, Awake, Oriented Psychiatric Psych Exam: Appropriate Responses Assessment/Plan Assessment Summary: NOEMI/Acute Renal Failure, Fluid/Volume Overload, CHF, Hypertension, CKD Stage III Problem List: (1) CHF exacerbation (2) Atrial fibrillation (3) Diabetes mellitus (4) Chronic systolic CHF (congestive heart failure) (5) Coronary artery disease (6) Acute worsening of stage 3 chronic kidney disease Plan Patient has been non oliguric. On Lasix, and KCl. Urine out put is better. Patient and family discussed with [facility] and decided to go for maximal medical therapy for now. Creatinine is 1.8. Problem Qualifiers (1) CHF exacerbation: Qualified Code: I50.23 - Acute on chronic systolic congestive heart failure (2) Diabetes mellitus: Viridiana Ch MD December 05, 2016 13:48 Viridiana Ch MD December 05, 2016 13:48
--- NOTE | 2016-12-05 14:39 | PD.CONS ---
Consult Service Palliative Care Consult Requested By Arturo Murillo M.D. Primary Care Physician Jovan Ramires MD Reason for Consultation a. To assist with evaluation and management of symptoms including: Dyspnea, pain, edema, debility, diarrhea. b. To assist medical decision maker(s) with: better understanding of current medical conditions; weighing benefits/burdens of medical treatment options; making medical treatment decisions. . HPI History of Present Illness This is an 81-year-old female with a past medical history of atrial fibrillation on Xarelto status post permanent pacemaker implantation in 2011, diabetes mellitus, hypertension, chronic systolic heart failure with ejection fraction 35-40%, anemia and GERD who presents to the emergency room 11/25/16 with a complaint of shortness of breath, bilateral dependent edema, diarrhea and shoulder pain. She was recently treated with antibiotics for a urinary tract infection in October. She has a history of tobacco use which she quit in 2003 with an approximate 60-70 pack year history having smoked one pack per day since age of 24. She has been having increasing emergency room visits since June 2016 and has been experiencing a functional decline over that time. ED investigations showed normal CBC with white blood cells 10.8, hemoglobin 10.9 , hematocrit 35.1, platelets 276, INR at 2.2. Chemistries showed sodium of 138 potassium of 1.48 BUN 33 and creatinine 1.75. Her troponin was negative, B type natriuretic peptide was 683. Arterial blood gas showed a compensated pH 7.45, bicarbonate 25, base excess 1.5, PCO2 37 and PaO2 120 on 2 L nasal cannula. Urinalysis was negative. Chest x-ray showed cardiomegaly with pulmonary vascular congestion. 2-D echocardiogram showed an ejection fraction of 35-40% with diffuse hypokinesis, mild aortic stenosis mild mitral regurgitation and moderate to severe tricuspid regurgitation. Cardiology consultation was done by Dr. Arturo Murillo and she underwent left heart and right heart catheterization showing a left main stenosis of 70%, proximal LAD 80%, RCA 70% and an 8 beat run of wide complex tachycardia, VT versus aberrancy. Cardiovascular surgery, Dr. Lora and electrophysiology, Dr. Atkinson were consulted for evaluation. During the CV surgery preoperative evaluation Dr. Lora decided she was not a candidate for surgical intervention due to poor pulmonary function results showing an FEV1 of 0.30. Given such poor pulmonary function it is unlikely that she could ever be extubated post surgery. Palliative care has been consulted to assist with symptom management, medical information and goals of care. . Function/Cognitive Trajectory Since June 2016 she has been seen in the emergency room 5 times for dyspnea and edema. As her functional status has declined over that time, her son moved her to his home for better support, and transport her to her multiple doctors appointments. While she had been ambulatory between rooms in the home, she was frequently dyspneic and she was limited in her ability to leave home. Even with this increased support she requires frequent hospital evaluations and admissions due to episodes of acute shortness of breath and multiple medical comorbidities. . Review of Systems Constitutional: COMPLAINS OF: Fatigue, Weight loss, Pain, Generalized weakness Endocrine: DENIES: Abnorml menstrual pattern, Heat/cold intolerance, Polydipsia , Polyuria, Polyphagia Eyes: DENIES: Blurred vision, Diplopia, Eye inflammation, Eye pain, Vision loss , Photosensitivity, Double Vision, Blind spots Ears, nose, mouth, throat: DENIES: Tinnitus, Hearing loss, Vertigo, Nasal discharge, Oral lesions, Throat pain, Hoarseness, Ear Pain, Running Nose, Epistaxis, Sinus Pain, Toothache, Odynophagia Respiratory: COMPLAINS OF: Sputum production, Shortness of breath Cardiovascular: COMPLAINS OF: Dyspnea on Exertion, Lower Extremity Edema, Orthopnea Gastrointestinal: COMPLAINS OF: Diarrhea, Dyspepsia or heartburn Genitourinary: DENIES: Abnormal vaginal bleeding, Dysmenorrhea, Dyspareunia, Sexual dysfunction, Urinary frequency, Urinary incontinence, Urgency, Hematuria , Dysuria, Nocturia, Vaginal discharge, Hesitancy, Dribbling, Decreased stream Musculoskeletal: COMPLAINS OF: Back pain Integumentary: DENIES: Abnormal pigmentation, Pruritus, Rash, Nail changes, Breast masses, Breast skin changes, Nipple discharge, Nodules, Tumors, Excessive dryness, Non-healing sores Hematologic/Lymphatics: DENIES: Bruising, Lymphadenopathy, Prolonged bleed w/ proced, History of transfusions Immunologic/Allergic: DENIES: Eczema, Urticaria Neurologic: DENIES: Abnormal gait, Headache, Localized weakness, Paresthesias, Seizures, Speech Problems, Tremor, Poor Balance, Change in smell or taste Psychiatric: COMPLAINS OF: Anxiety (related to dyspnea) Past Family Social History Coded Allergies: Ibuprofen (Verified Allergy, Severe, 11/25/16) Codeine (Verified Allergy, Mild, 11/25/16) Past Medical History Atrial fibrillation with pauses, on Xarelto and status [place] pac[place] [address] Alejandro Sweeney Type 2 diabetes mellitus Hypertension GERD Dyslipidemia COPD Gout Coronary artery disease per left heart catheterization done 11/[address] Arturo Murillo showing left main stenosis 70%, proximal LAD 80%, RCA 70% Past Surgical History Pacemaker placement 2011 Carpal tunnel surgery Cholecystectomy Partial hysterectomy Reported Medications Reported Meds & Active Scripts Active Reported Simvastatin 40 Mg Tab 40 Mg PO HS Xarelto (Rivaroxaban) 15 Mg Tab 15 Mg PO DAILY Cartia Xt (Diltiazem ER 24 HR) 120 Mg Caper 120 Mg PO DAILY Esomeprazole DR 40 Mg Capdr 40 Mg PO DAILY Metformin (Metformin HCl) 500 Mg Tab 500 Mg PO BIDPC With meals Furosemide 40 Mg Tab 40 Mg PO DAILY Metoprolol Tartrate 100 Mg Tab 100 Mg PO BID Current Medications Medications (Trade) Dose Ordered Sig/Kalyn Route Start Time Stop Time Status Last Admin (Narcan Inj) 0.4 mg UNSCH PRN IV 11/25/16 13:00 (KCl) 20 meq DAILY PO 11/26/16 09:00 12/05/16 08:15 (Cardizem Cd) 120 mg DAILY PO 11/26/16 09:00 12/05/16 08:15 (Lopressor) 100 mg BID PO 11/25/16 21:00 12/04/16 21:20 (Protonix) 40 mg DAILY PO 11/26/16 09:00 12/05/16 08:15 (Pravachol) 80 mg HS PO 11/25/16 21:00 12/04/16 21:20 (D50w (Vial) Inj) 25 ml UNSCH PRN IV PUSH 11/25/16 17:30 (Glucagon Inj) 1 mg UNSCH PRN OTHER 11/25/16 17:30 (Lasix) 40 mg BID@09,18 PO 11/28/16 09:00 12/04/16 18:50 Lisinopril 5 mg 5 mg DAILY PO 11/29/16 09:00 Hold 12/03/16 08:19 (Heparin-D5W Inj) 250 ml @ 0 mls/hr TITRATE IV 12/03/16 04:30 12/04/16 19:27 (NS Flush) 2 ml BID IV FLUSH 12/04/16 21:00 12/05/16 08:15 (NS Flush) 2 ml UNSCH PRN IV FLUSH 12/04/16 13:45 Family History Patient's mother in her 80's of [place], father in his 50's of an [place]. Substance Use Tobacco: 60-70 pack year history of tobacco use, quit in 2003. Alcohol: None reported Prescription med abuse: None reported Illicits: None reported Psychosocial History She was born in [place] but moved to [place] when she was 5 years old. She has remained in [place] for the rest of her life. She quit high school at about age [age] and having a total of 6 of her own children and 3 stepchildren. She is currently . 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 She now lives with her son due to progressive functional decline and need for frequent medical follow-up. . Spiritual/Cultural Factors She was raised in the Adventism kof[place] but is unable to get to mu-ism frequently. She states she would like jig and fixture repairer visits. . Living Will: Never completed Health Care Surrogate: Never completed Durable Power of Show Horse Driver: Never completed Today's verbally stated goals: She states today that she wishes to be a DO NOT RESUSCITATE status and does not wish aggressive measures. Her family was in the room at the time and witnessed this conversation and supported her decision. . Physical Exam Vital Signs Date Time Temp Pulse Resp B/P Pulse Ox O2 Delivery O2 Flow Rate FiO2 12/05/16 13:01 88 12/05/16 12:00 88 12/05/16 11:30 97.4 85 20 96/75 100 12/05/16 11:00 105 12/05/16 10:01 84 12/05/16 09:00 98 12/05/16 08:45 97.4 106 16 90/60 99 12/05/16 08:45 100 Nasal Cannula 2.00 12/05/16 08:00 110 12/05/16 07:01 93 12/05/16 06:20 79 12/05/16 05:34 94 12/05/16 04:00 108 12/05/16 03:00 98.2 66 150/66 96 12/05/16 03:00 96 12/05/16 02:00 92 12/05/16 01:02 102 12/05/16 00:00 96 12/04/16 23:00 100 12/04/16 23:00 97.6 103 107/72 100 12/04/16 22:00 106 12/04/16 21:00 98 12/04/16 20:00 96 12/04/16 19:00 80 12/04/16 19:00 97.5 86 102/71 100 12/04/16 19:00 Nasal Cannula 2.00 12/04/16 18:01 100 12/04/16 17:00 92 12/04/16 16:00 76 12/04/16 15:45 97.5 73 16 85/44 100 12/04/16 15:00 69 12/04/16 12/05/16 18:59 06:59 Intake Total 640 ml 240 ml Output Total 300 ml 550 ml Balance 340 ml -310 ml Intake Oral 480 ml 240 ml IV Total 160 ml Output Urine Total 300 ml 550 ml # Voids 2 # Bowel Movements 1 Exam CONSTITUTIONAL/GENERAL: This is an thin patient, in no apparent distress. TUBES/LINES/DRAINS: PIV in RFA SKIN: No jaundice, rashes, or lesions. No wounds seen anteriorly. Skin temperature appropriate. Not diaphoretic. HEAD: Atraumatic. Normocephalic. EYES: Extraocular motions intact. No scleral icterus. No injection or drainage. Fundi not examined. ENT: Hearing grossly normal. NECK: Trachea midline. Supple, nontender. No palpable thyroid enlargement or nodularity. CARDIOVASCULAR: Irregular rhythm, controlled rate without murmurs, gallops, or rubs. No JVD. Peripheral pulses symmetric. RESPIRATORY/CHEST: Symmetric, unlabored respirations. Clear, diminished to auscultation. Breath sounds equal bilaterally. No wheezes, rales, or rhonchi. GASTROINTESTINAL: Abdomen soft, non-tender, nondistended. No hepato-splenomegaly , or palpable masses. No guarding. Bowel sounds present. GENITOURINARY: Without palpable bladder distension. MUSCULOSKELETAL: Extremities without clubbing or cyanosis. 2+ dependent edema left greater than right. No joint tenderness or effusion noted. No calf tenderness. No mottling or clubbing. NEUROLOGICAL: Awake and alert. Motor and sensory grossly within normal limits. Follows commands. Moves all extremities. PSYCHIATRIC: No obvious anxiety/depression. no apparent hallucinations or other psychotic thought process. Diagnostic Tests Laboratory Laboratory Tests Test 12/03/16 12/03/16 12/03/16 12/04/16 05:42 11:29 18:30 04:42 White Blood Count 5.7 TH/MM3 (4.0-11.0) Red Blood Count 3.42 MIL/MM3 (4.00-5.30) Hemoglobin 9.2 GM/DL (11.6-15.3) Hematocrit 29.3 % (35.0-46.0) Mean Corpuscular Volume 85.5 FL (80.0-100.0) Mean Corpuscular Hemoglobin 26.8 PG (27.0-34.0) Mean Corpuscular Hemoglobin 31.3 % Concent (32.0-36.0) Red Cell Distribution Width 18.2 % (11.6-17.2) Platelet Count 173 TH/MM3 (150-450) Mean Platelet Volume 10.1 FL (7.0-11.0) Prothrombin Time 13.6 SEC (9.8-11.6) Prothromb Time International 1.2 RATIO Ratio Activated Partial 27.2 SEC 42.5 SEC 46.0 SEC 44.9 SEC Thromboplast Time (24.3-30.1) (24.3-30.1) (24.3-30.1) (24.3-30.1) Test 12/04/16 12/04/16 12/05/16 12/05/16 11:01 16:45 05:41 07:10 Sodium Level 139 MEQ/L 140 MEQ/L (136-145) (136-145) Potassium Level 4.6 MEQ/L 4.1 MEQ/L (3.5-5.1) (3.5-5.1) Chloride Level 101 MEQ/L 101 MEQ/L (98-107) (98-107) Carbon Dioxide Level 28.6 MEQ/L 30.6 MEQ/L (21.0-32.0) (21.0-32.0) Anion Gap 9 MEQ/L (5-15) 8 MEQ/L (5-15) Blood Urea Nitrogen 31 MG/DL (7-18) 34 MG/DL (7-18) Creatinine 1.83 MG/DL 1.87 MG/DL (0.50-1.00) (0.50-1.00) Estimat Glomerular Filtration 26 ML/MIN (>89) 26 ML/MIN (>89) Rate Random Glucose 150 MG/DL 100 MG/DL (74-106) (74-106) Calcium Level 8.8 MG/DL 8.9 MG/DL (8.5-10.1) (8.5-10.1) Nasal Screen MRSA (PCR) MRSA NOT DETECTED (NOT DETECT) Activated Partial 48.5 SEC Thromboplast Time (24.3-30.1) Blood Type A POSITIVE A POSITIVE Antibody Screen POSITIVE Antibody Identification Anti-E Antigen Identification E Antigen - NEGATIVE Crossmatch Leukocyte-Reduced Red Blood Cells Blood Bank Comment Result Diagram: 12/03/16 0542 12/05/16 0541 Microbiology Laboratory Tests Test 12/05/16 12/05/16 05:41 07:10 Activated Partial 48.5 Thromboplast Time Sodium Level 140 Potassium Level 4.1 Chloride Level 101 Carbon Dioxide Level 30.6 Anion Gap 8 Blood Urea Nitrogen 34 Creatinine 1.87 Estimat Glomerular Filtration 26 Rate Random Glucose 100 Calcium Level 8.9 Blood Type A POSITIVE A POSITIVE Antibody Screen POSITIVE Antibody Identification Anti-E Antigen Identification E Antigen - NEGATIVE Crossmatch Leukocyte-Reduced Red Blood Cells Blood Bank Comment Imaging Last Impressions Lower Extremity Ultrasound 12/04/16 0000 Signed Impressions: Service Date/Time: Sunday, December 04, 2016 15:23 - CONCLUSION: Normal examination. Slava Liu MD Carotid Artery Ultrasound 12/04/16 0000 Signed Impressions: Service Date/Time: Sunday, December 04, 2016 16:12 - CONCLUSION: No evidence of flow-limiting carotid stenosis. Slava Liu MD Renal Ultrasound 12/01/16 0000 Signed Impressions: Service Date/Time: Thursday, December 01, 2016 22:24 - CONCLUSION: 1. Atrophic kidneys. Mild thickening of the bladder wall of unknown etiology. Lex Uribe MD Chest X-Ray 11/29/16 0000 Signed Impressions: Service Date/Time: Tuesday, November 29, 2016 10:12 - CONCLUSION: 1. Cardiomegaly with pulmonary vascular engorgement. No infiltrates. 2. Tiny left effusion. Prem Noland Jr., MD Foot X-Ray 11/28/16 0000 Signed Impressions: Service Date/Time: Monday, November 28, 2016 13:05 - CONCLUSION: 1. No acute bony abnormality identified. Obed Hurtado MD Procedures Left and right heart catheterization 12/01/16 Other Bedside pulmonary function test done 12/04/16 showing FEV1 0.30 Patient/Family Conference Present at Family Conference: Lisbeth Rincon Multiple other extended family members Issues Discussed: * Palliative care role, purpose, approach * Additional medical, psychosocial, and spiritual history * Patients general health, functional status, and cognitive changes in the months leading up to the current hospitalization * Patient/family understanding of the current medical problems * Patient/family understanding of prognosis * Patients goals of care as best understood from advance directives and/or conversations and/or values * Current medical treatment options and benefits/burdens of those options * Likely scenarios comparing ongoing aggressive care with a transition to comfort measures only * Questions answered to the best of my ability * Palliative care contact information provided Assessment and Plan Disease Oriented Problem List: (1) Afib (2) Atrial fibrillation (3) Diabetes mellitus (4) Chronic systolic CHF (congestive heart failure) (5) Acute worsening of stage 3 chronic kidney disease (6) Coronary artery disease (7) Chronic GERD (8) Pacemaker (9) Hypertension (10) Gout (11) COPD (chronic obstructive pulmonary disease) (12) Cardiomyopathy Symptom Scale: (1) Debility 0-10 Scale: Unable to quantify (2) Diarrhea 0-10 Scale: Unable to quantify (3) Dyspnea and respiratory abnormalities 0-10 Scale: Unable to quantify (4) Pain 0-10 Scale: Unable to quantify (5) Edema 0-10 Scale: Unable to quantify Pertinent Non-Medical Issues Psychosocial:She was born in [place] but moved to [place] when she was 5 years old. She has remained in [place] for the rest of her life. She quit high school at about age [age] and having a total of 6 of her own children and 3 stepchildren. She is currently . 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 She now lives with her son due to progressive functional decline and need for frequent medical follow-up. Spiritual: Adventism requests jig and fixture repairer visit. Legal: Ethical issues impacting care: Important Contacts Jeremy Rincon (resides with) Daughter-Lizzy Castro Daughter-Freida Sanchez [phone] Daughter-Josefina Cruz Son-James Castle-Jeornimo Sylvester Luison-Nagi Sylvester . Prognosis Her prognosis is poor. She has a history of chronic tobacco abuse totaling 60- 70 pack years with medical comorbidities of severe COPD with FEV1 of 0.3, triple -vessel coronary artery disease unamenable to surgical intervention, worsening renal insufficiency suspected to be cardiorenal syndrome, chronic dyspnea, atrial fibrillation requiring permanent pacemaker implantation, chronic dependent edema, diabetes mellitus and chronic systolic heart failure with ejection fraction of 35-40%. She has now reached maximum medical management with the use of beta tiffanie, diuretic, statin, calcium channel tiffanie and nebulizers. Her worsening renal status has forced the discontinuation of ACEI. Her poor respiratory status prohibits surgery and given her worsening renal function the burden of surgery was felt to be greater than the benefit. She has requested a DO NOT RESUSCITATE status and she is discussing the possibility of hospice with her family. . Code Status: No Code Plan PLAN: Legal decision maker: She is currently capacitated to be her own decision maker however has specified she would like her children to be her co-decision makers in the case of her incapacitation. She was offered the opportunity to complete a healthcare surrogate form, which she declined at this time, and that will be readdressed at a future encounters. Goals: She does not wish to have aggressive measures and understands that her diseases are not reversible. CODE STATUS: DO NOT RESUSCITATE SYMPTOMS:Dyspnea, pain, edema, debility, diarrhea * Dyspnea-she remains mildly dyspneic with activity and requires 2 pillows at night to sleep. She remains on oxygen in the hospital however her 2 minute walk test did not support home oxygen at this time. * Pain-she complains of intermittent pain between her shoulder blades which occur with activity and resolve with rest likely related to her coronary artery disease. She is on maximal medical therapy for that. * Edema-she states this is improving on Lasix 40 mg twice daily. Diuresis may at some point he limited by progressive kidney dysfunction. Continue leg elevation. * Debility-she has moved from independent living status in to her son's home for better support. Unable to improve activities status due to underlying COPD , heart failure, coronary artery disease. She is discussing hospice with her family. * Diarrhea-she did have multiple episodes just prior to admission and reported this as an admitting symptom however has resolved since admission. In summary this is an 81-year-old female with multiple comorbidities and limited medical options. She is experiencing dysfunction in her cardiac, pulmonary and renal functions, essentially presenting with multisystem organ dysfunction. She has been declined for surgery by cardiovascular thoracic to severe pulmonary dysfunction. Her renal function is declining and is felt to be indicative of cardiorenal syndrome by Dr. Murillo. Her ACEI was stopped due to progressive renal dysfunction and at some point may limit the ability of diuresis for her heart failure. She is realistic about her goals and has requested a DO NOT RESUSCITATE status. She has a large and supportive family that agree with her decision. They are discussing the possibility of home with hospice care. Palliative care will follow with the family for further support in determining goals of care. Palliative care will continue to follow the patient during hospital course as condition evolves, to assist patient/decision-maker with understanding of their medical conditions, weighing benefits/burdens of treatment options, for clarification of goals of treatment. Additionally will assist with any symptoms of palliative concern. . Time Spent Total Floor Time (mins): 60 >50% Counseling/Coord of Care: Yes Thank you for the opportunity to participate in the care of Ms. Sylvester. Attestation To help prompt me to consider important information that might be impacting today's encounter and assessment, information from prior notes written by myself or my colleagues may have been "brought forward" into today's note. My signature on this note, however, is an attestation that I personally performed the exam, history, and/or decision-making noted today, and, unless otherwise indicated, the interactions with patient, family, and staff as well as the review of records all occurred today. I also attest that the listed assessment and stated plan reflect my best clinical judgment today based on the combination of historical information, prior notes, and today's exam/ interactions. When time spent is documented, it refers only to time spent today by the signer, or if indicated, combined time spent today by collaborating physician/nurse practitioner. Natalie Mancia December 05, 2016 2:39 pm
--- NOTE | 2016-12-05 15:06 | PD.CAR.PN ---
CVT Progress Note Subjective/Hospital Course: 81/ F presented to ED SOB, lower ext edema , CHF exacerbation, BNP 683, chronic afib , recent treatment for pneumonia and UTI. Underwent cardiac cath by Dr Murillo, found to have Left main disease 70%, prox LAD 80%, RCA 70% EF 35-40%, Dr Lora spoke in depth with pt and family on sunday and again today. Patient and family want to proceed with surgery, STS data and risk were discussed in entirety. PMH : HLP, chronic afib on xarelto at home, LD 11/24, DM, HTN, ECHO mild MR, mod dilated left atrium and right atrium BMI 22, CKD baseline 1.75, recent right foot pain (neg workup) 12/04 surgery tentatively scheduled 12/06 full workup pending 12/05 PFT's obtained and demonstrate FEV1 of 0.3L. Repeated with identical results D/w patient and family. At this point, she is at prohibitive risk for operative and perioperative morbidity and mortality given the above findings and her additional medical comorbidities. They comprehend the provided information and all questions were answered. Will cancel OR. Agree with maximizing medical therapy as already doing. Objective: Vital Signs Date Time Temp Pulse Resp B/P Pulse Ox O2 Delivery O2 Flow Rate FiO2 12/05/16 13:01 88 12/05/16 12:00 88 12/05/16 11:30 97.4 85 20 96/75 100 12/05/16 11:00 105 12/05/16 10:01 84 12/05/16 09:00 98 12/05/16 08:45 97.4 106 16 90/60 99 12/05/16 08:45 100 Nasal Cannula 2.00 12/05/16 08:00 110 12/05/16 07:01 93 12/05/16 06:20 79 12/05/16 05:34 94 12/05/16 04:00 108 12/05/16 03:00 98.2 66 150/66 96 12/05/16 03:00 96 12/05/16 02:00 92 12/05/16 01:02 102 12/05/16 00:00 96 12/04/16 23:00 100 12/04/16 23:00 97.6 103 107/72 100 12/04/16 22:00 106 12/04/16 21:00 98 12/04/16 20:00 96 12/04/16 19:00 80 12/04/16 19:00 97.5 86 102/71 100 12/04/16 19:00 Nasal Cannula 2.00 12/04/16 18:01 100 12/04/16 17:00 92 12/04/16 16:00 76 12/04/16 15:45 97.5 73 16 85/44 100 Labs: Laboratory Tests Test 12/05/16 12/05/16 05:41 07:10 Activated Partial 48.5 SEC Thromboplast Time (24.3-30.1) Sodium Level 140 MEQ/L (136-145) Potassium Level 4.1 MEQ/L (3.5-5.1) Chloride Level 101 MEQ/L (98-107) Carbon Dioxide Level 30.6 MEQ/L (21.0-32.0) Anion Gap 8 MEQ/L (5-15) Blood Urea Nitrogen 34 MG/DL (7-18) Creatinine 1.87 MG/DL (0.50-1.00) Estimat Glomerular Filtration 26 ML/MIN (>89) Rate Random Glucose 100 MG/DL (74-106) Calcium Level 8.9 MG/DL (8.5-10.1) Blood Type A POSITIVE A POSITIVE Antibody Screen POSITIVE Antibody Identification Anti-E Antigen Identification E Antigen - NEGATIVE Crossmatch Leukocyte-Reduced Red Blood Cells Blood Bank Comment Result Diagram: 12/03/16 0542 12/05/16 0541 (1) Coronary artery disease Plan: on ASA, statin and BB eval for surgery on sun (2) CHF exacerbation Plan: on diuretics (3) Afib Plan: rate improved, resume xarelto after surgery on Heparin gtt BB cardizem (4) Cardiomyopathy (5) Diabetes mellitus Problem Qualifiers (1) CHF exacerbation: Qualified Code: I50.23 - Acute on chronic systolic congestive heart failure (2) Diabetes mellitus: Tatiana Lora MD December 05, 2016 15:06
[2016-12-05 16:16] LABS: HEMOGLOBIN A1a 1.1 %; HEMOGLOBIN A1b 1.7 %; HEMOGLOBIN Ao 84.7 %; HEMOGLOBIN P3 5.6 %
[2016-12-05] MEDS: PRAVASTATIN SOD 80 MG TAB PO SCH (21:55)
[2016-12-06] VITALS (26 sets, daily range): BP systolic 87–112; BP diastolic 53–76; PULSE 66–112; RESP 18–20; TEMP 97.5–98.3; O2SAT 98–100
[2016-12-06] MEDS: INSULIN ASPART SUPPLEMENTAL SCALE SQ SCH ×4 (06:15→22:40)
[2016-12-06 06:16] LABS: HEMATOCRIT 27.4 % (35.0-46.0); MEAN CELL VOLUME 84.6 FL (80.0-100.0); MEAN CORPUSCULAR HEMOGLOBIN 27.1 PG (27.0-34.0); MEAN CORPUSCULAR HGB CONC 32.1 % (32.0-36.0); PLATELET COUNT 175 TH/MM3 (150-450); RED BLOOD COUNT 3.24 MIL/MM3 (4.00-5.30); RED CELL DISTRIBUTION WIDTH 17.7 % (11.6-17.2); REVIEW FLAG FINAL; WHITE BLOOD COUNT 6.4 TH/MM3 (4.0-11.0)
[2016-12-06 06:22] LABS: APTT (PATIENT) 45.3 SEC (24.3-30.1)
[2016-12-06 06:43] LABS: BICARBONATE 31.5 MEQ/L (21.0-32.0); POTASSIUM 4.1 MEQ/L (3.5-5.1)
--- NOTE | 2016-12-06 08:27 | RSPPFT ---
DATE OF PROCEDURE: 12/05/16 COMMENTS: VOLUMES DYNAMIC: FVC and FEV1 severely reduced. FLOWS: FEV1% moderately reduced; FEF 25-75 severely reduced. IMPRESSION: This appears to be a very severe obstructive ventilatory defect although restriction cannot be excluded without full lung volumes. No post-bronchodilator study was performed.
[2016-12-06] MEDS: POTASSIUM CHLORIDE 20 MEQ CONTROLLED RELEASE TAB PO SCH (08:36)
[2016-12-06] MEDS: DILTIAZEM-CD 120 MG CAP ER PO SCH (08:36)
[2016-12-06] MEDS: METOPROLOL TARTRATE 100 MG TAB PO SCH ×2 (08:36→22:38)
[2016-12-06] MEDS: FUROSEMIDE 40 MG TAB PO SCH ×2 (08:36→16:59)
[2016-12-06] MEDS: PANTOPRAZOLE SOD 40 MG DELAYED RELEASE TAB PO SCH (08:36)
[2016-12-06] MEDS: SODIUM CHLORIDE 0.9% FLUSH 10 ML FLUSH IV FLUSH SCH ×2 (08:37→21:00)
[2016-12-06] MEDS: LISINOPRIL 5 MG TAB PO SCH (09:00)
--- NOTE | 2016-12-06 09:15 | HHI.PR ---
Subjective Remarks Follow-up CHF, CAD. The patient states that she feels good today. No acute concerns. Has not had chest pain or dyspnea this morning. Objective Vitals Vital Signs Date Time Temp Pulse Resp B/P Pulse Ox O2 Delivery O2 Flow Rate FiO2 12/06/16 08:30 97.6 66 20 110/76 100 12/06/16 08:30 100 Nasal Cannula 2.00 12/06/16 07:01 105 12/06/16 06:00 71 12/06/16 05:00 98 12/06/16 04:00 93 12/06/16 03:00 97.5 74 18 100/63 100 12/06/16 03:00 85 12/06/16 02:00 87 12/06/16 01:00 96 12/06/16 00:00 100 12/05/16 23:00 97.6 76 18 87/63 100 12/05/16 23:00 92 12/05/16 22:00 104 12/05/16 21:00 104 12/05/16 20:00 96 Nasal Cannula 2.00 12/05/16 20:00 112 12/05/16 20:00 98.6 67 18 159/81 96 Manual Cuff/Auscultation Manual Cuff/Doppler 12/05/16 19:00 110 12/05/16 18:01 94 12/05/16 17:01 102 12/05/16 16:00 82 12/05/16 15:45 97.0 99 18 107/60 100 12/05/16 15:00 118 12/05/16 14:00 74 12/05/16 13:01 88 12/05/16 12:00 88 12/05/16 11:30 97.4 85 20 96/75 100 12/05/16 11:00 105 12/05/16 10:01 84 I/O 12/05/16 12/05/16 12/05/16 12/06/16 12/06/16 12/06/16 07:00 15:00 23:00 07:00 15:00 23:00 Intake Total 240 ml 505 ml 318 ml Output Total 550 ml 450 ml 300 ml Balance -310 ml 55 ml 18 ml Intake Oral 240 ml 480 ml 240 ml IV Total 25 ml 78 ml Output Urine Total 550 ml 450 ml 300 ml # Voids 3 # Bowel Movements 2 2 Result Diagram: 12/06/1660012/06/1601 Imaging Last Impressions Lower Extremity Ultrasound 12/04/16 Signed Impressions: Service Date/Time: Sunday, December 04, 2016 15:23 - CONCLUSION: Normal examination. Slava Liu MD Carotid Artery Ultrasound 12/04/16 Signed Impressions: Service Date/Time: Sunday, December 04, 2016 16:12 - CONCLUSION: No evidence of flow-limiting carotid stenosis. Slava Liu MD Renal Ultrasound 12/01/16 Signed Impressions: Service Date/Time: Thursday, December 01, 2016 22:24 - CONCLUSION: 1. Atrophic kidneys. Mild thickening of the bladder wall of unknown etiology. Lex Uribe MD Chest X-Ray 11/29/16 Signed Impressions: Service Date/Time: Tuesday, November 29, 2016 10:12 - CONCLUSION: 1. Cardiomegaly with pulmonary vascular engorgement. No infiltrates. 2. Tiny left effusion. Prem Noland Jr., MD Foot X-Ray 11/28/16 Signed Impressions: Service Date/Time: Monday, November 28, 2016 13:05 - CONCLUSION: 1. No acute bony abnormality identified. Obed Hurtado MD Objective Remarks General: Elderly female in no acute distress. Heart: Regular rate and rhythm. No murmur. Lungs: Mild bibasilar crackles. Breathing is nonlabored. Abdomen: Soft, nontender, nondistended. Extremities: Trace bilateral lower extremity edema. Psych: Alert and oriented. Procedures None Urinary Catheter: No Vascular Central Line Catheter: No A/P Problem List: (1) CHF exacerbation ICD Code: I50.9 Status: Acute (2) Atrial fibrillation ICD Code: I48.91 Status: Chronic (3) Diabetes mellitus ICD Code: E11.9 Status: Chronic (4) Right foot pain ICD Code: M79.671 Status: Acute (5) Chronic systolic CHF (congestive heart failure) ICD Code: I50.22 Status: Chronic (6) Acute worsening of stage 3 chronic kidney disease ICD Code: N18.3 Status: Acute (7) Coronary artery disease ICD Code: I25.10 Status: Acute (8) Cardiomyopathy ICD Code: I42.9 Status: Acute Assessment and Plan 1. Acute exacerbation of chronic systolic congestive heart failure: Appreciate cardiology recommendations. Continue Lasix. Swelling has improved. 2. Acute worsening of chronic kidney disease stage III: Creatinine remains elevated. Monitor labs. Appreciate nephrology recommendations. Renal ultrasound report noted. 3. Dyspnea, hypoxia: Secondary to CHF. Respiratory walk test showed no need for home oxygen on 11/29/16. 4. Diabetes mellitus type 2: Metformin on hold secondary to elevated creatinine. Monitor Accu-Cheks and cover with sliding scale insulin. 5. Right foot pain: Appreciate podiatry recommendations. 6. Right lower extremity edema: Keep elevated. Continue diuretics. Ultrasound negative for DVT. 7. DVT prophylaxis: Xarelto on hold prior in anticipation of surgery. 8. Coronary artery disease, cardiomyopathy: Status post cardiac catheterization. Patient was found to have severe left main and three-vessel coronary artery disease. On heparin drip. Appreciate cardiothoracic surgery recommendations. The patient is not felt to be a surgical candidate due to poor pulmonary function. Palliative care has been consulted. Patient and her family are considering hospice care. Problem Qualifiers (1) CHF exacerbation: Qualified Code: I50.23 - Acute on chronic systolic congestive heart failure (2) Diabetes mellitus: Ashish Mahoney MD December 06, 2016 09:15
[2016-12-06] MEDS: HEPARIN-D5W INJ 250 ML IV SCH (09:55)
--- NOTE | 2016-12-06 10:22 | HHI.NPPN ---
Subjective General Problems: Anemia, Edema, Heart Disease Renal Failure: Chronic, Acute, Stage III History of Present Illness 81-year-old female with past medical history of hypertension, diabetes mellitus, ischemic heart disease, chronic kidney disease, atrial fibrillation, who came to the hospital because of increased swelling of the legs and worsening shortness of breath. I was called to see the patient because of elevated BUN and creatinine. The patient has creatinine of 1.7 on admission. Additional Remarks Patient is alert, sitting on chair, clinically same, mild SOB with exertion. Review of Systems General Constitutional: Fatigue Respiratory Lungs: SOB, Cough, Wheeze Cardiovascular Cardiac: Chest Pain, WOODRUFF Objective Data Data 12/05/16 12/06/16 19:00 07:00 Intake Total 505 ml 318 ml Output Total 450 ml 300 ml Balance 55 ml 18 ml Intake Oral 480 ml 240 ml IV Total 25 ml 78 ml Output Urine Total 450 ml 300 ml # Voids 3 # Bowel Movements 2 2 Vital Signs Date Time Temp Pulse Resp B/P Pulse Ox O2 Delivery O2 Flow Rate FiO2 12/06/16 08:30 97.6 66 20 110/76 100 12/06/16 08:30 100 Nasal Cannula 2.00 12/06/16 07:01 105 12/06/16 06:00 71 12/06/16 05:00 98 12/06/16 04:00 93 12/06/16 03:00 97.5 74 18 100/63 100 12/06/16 03:00 85 12/06/16 02:00 87 12/06/16 01:00 96 12/06/16 00:00 100 12/05/16 23:00 97.6 76 18 87/63 100 12/05/16 23:00 92 12/05/16 22:00 104 12/05/16 21:00 104 12/05/16 20:00 96 Nasal Cannula 2.00 12/05/16 20:00 112 12/05/16 20:00 98.6 67 18 159/81 96 Manual Cuff/Auscultation Manual Cuff/Doppler 12/05/16 19:00 110 12/05/16 18:01 94 12/05/16 17:01 102 12/05/16 16:00 82 12/05/16 15:45 97.0 99 18 107/60 100 12/05/16 15:00 118 12/05/16 14:00 74 12/05/16 13:01 88 12/05/16 12:00 88 12/05/16 11:30 97.4 85 20 96/75 100 12/05/16 11:00 105 -: 12/06/16 0601 12/06/16 0601 Physical Exam General Appearance: No Acute Distress, Comfortable Eyes Eye Exam: Pupils Equal Neck Neck Exam: Neck Supple Pulmonary Resp Exam: No Distress, Rhonchi, Sputum, Decreased Bases, Diminished Breath Sounds Cardiology CV Exam: Regular, Normal Sinus Rhythm Gastrointestinal/Abdomen GI Exam: Soft, Non-Tender, Bowel Sounds Present Extremeties Extremities Exam: Trace Edema Neurologic Neuro Exam: Alert, Awake, Oriented Psychiatric Psych Exam: Appropriate Responses Assessment/Plan Assessment Summary: NOEMI/Acute Renal Failure, Fluid/Volume Overload, CHF, Hypertension, CKD Stage III Problem List: (1) CHF exacerbation (2) Atrial fibrillation (3) Diabetes mellitus (4) Chronic systolic CHF (congestive heart failure) (5) Coronary artery disease (6) Acute worsening of stage 3 chronic kidney disease Plan Patient has been non oliguric. On Lasix, and KCl. Urine out put is better. Patient and family discussed with [facility] Since patient has multiple medical conditions, they decided to go for maximal medical therapy for now. Creatinine stable at 1.7. Problem Qualifiers (1) CHF exacerbation: Qualified Code: I50.23 - Acute on chronic systolic congestive heart failure (2) Diabetes mellitus: Viridiana Ch MD December 06, 2016 10:22
--- NOTE | 2016-12-06 13:07 | PD.CARD.PN ---
Subjective Subjective Remarks alert in nad Objective Vital Signs / I&O Vital Signs Date Time Temp Pulse Resp B/P Pulse Ox O2 Delivery O2 Flow Rate FiO2 12/06/16 10:01 100 12/06/16 09:00 106 12/06/16 08:30 97.6 66 20 110/76 100 12/06/16 08:30 100 Nasal Cannula 2.00 12/06/16 08:00 100 12/06/16 07:01 105 12/06/16 06:00 71 12/06/16 05:00 98 12/06/16 04:00 93 12/06/16 03:00 97.5 74 18 100/63 100 12/06/16 03:00 85 12/06/16 02:00 87 12/06/16 01:00 96 12/06/16 00:00 100 12/05/16 23:00 97.6 76 18 87/63 100 12/05/16 23:00 92 12/05/16 22:00 104 12/05/16 21:00 104 12/05/16 20:00 96 Nasal Cannula 2.00 12/05/16 20:00 112 12/05/16 20:00 98.6 67 18 159/81 96 Manual Cuff/Auscultation Manual Cuff/Doppler 12/05/16 19:00 110 12/05/16 18:01 94 12/05/16 17:01 102 12/05/16 16:00 82 12/05/16 15:45 97.0 99 18 107/60 100 12/05/16 15:00 118 12/05/16 14:00 74 I/O 12/05/16 12/05/16 12/05/16 12/06/16 12/06/16 12/06/16 07:00 15:00 23:00 07:00 15:00 23:00 Intake Total 240 ml 505 ml 318 ml Output Total 550 ml 450 ml 300 ml Balance -310 ml 55 ml 18 ml Intake Oral 240 ml 480 ml 240 ml IV Total 25 ml 78 ml Output Urine Total 550 ml 450 ml 300 ml # Voids 3 # Bowel Movements 2 2 Physical Exam GENERAL: SKIN: Warm and dry. HEAD: Normocephalic. EYES: No scleral icterus. No injection or drainage. NECK: Supple, trachea midline. No JVD or lymphadenopathy. CARDIOVASCULAR: Regular rate and rhythm without murmurs, gallops, or rubs. RESPIRATORY: Breath sounds equal bilaterally. No accessory muscle use. GASTROINTESTINAL: Abdomen soft, non-tender, nondistended. MUSCULOSKELETAL: No cyanosis, or edema. BACK: Nontender without obvious deformity. No CVA tenderness. Laboratory Laboratory Tests Test 12/06/16 06:01 White Blood Count 6.4 TH/MM3 Red Blood Count 3.24 MIL/MM3 Hemoglobin 8.8 GM/DL Hematocrit 27.4 % Mean Corpuscular Volume 84.6 FL Mean Corpuscular Hemoglobin 27.1 PG Mean Corpuscular Hemoglobin 32.1 % Concent Red Cell Distribution Width 17.7 % Platelet Count 175 TH/MM3 Mean Platelet Volume 10.1 FL Activated Partial 45.3 SEC Thromboplast Time Sodium Level 141 MEQ/L Potassium Level 4.1 MEQ/L Chloride Level 103 MEQ/L Carbon Dioxide Level 31.5 MEQ/L Anion Gap 7 MEQ/L Blood Urea Nitrogen 36 MG/DL Creatinine 1.74 MG/DL Estimat Glomerular Filtration 28 ML/MIN Rate Random Glucose 110 MG/DL Calcium Level 9.1 MG/DL Assessment and Plan Problem List: (1) Coronary artery disease (2) CHF exacerbation (3) Afib (4) Cardiomyopathy (5) Diabetes mellitus Assessment and Plan 1.) Chf -suboptimally controlled due to lm cad, has been tachycardic and hypotensive, continue diuresis, f/u bnp in am, yuni held due to arf and hypotension; 2.) AFib - rate controlled on cardizem and lopressor, hold xarelto for cath, on iv heparin 3.) wide complex tachycardia - consult Dr Atkinson 4.) CAD - fev=.3, not candidate for cabg per Dr Lora. continue heparin, consult palliative care, patient considering hospice Problem Qualifiers (1) CHF exacerbation: Qualified Code: I50.23 - Acute on chronic systolic congestive heart failure (2) Diabetes mellitus: Arturo Murillo MD December 06, 2016 13:07
--- NOTE | 2016-12-06 15:59 | HHI.HCPN ---
Reason for visit a. To assist with evaluation and management of symptoms including: Dyspnea, pain, edema, debility, diarrhea, cough. b. To assist medical decision maker(s) with: better understanding of current medical conditions; weighing benefits/burdens of medical treatment options; making medical treatment decisions. . (Natalie Mancia) Subjective/Interval History 81-year-old female admitted with severe coronary artery disease, not a candidate for surgery due to severe pulmonary compromise and progressive kidney disease. She remains on oxygen via nasal cannula and denies any chest pain or dyspnea. She does complain of a dry cough which awakens her and is resolved with drinking water. She did participate with physical therapy and wishes to continue with some kind of rehabilitation. Her family members were at bedside and support her in this decision. She is mildly hypotensive today at 87/53 with mild tachycardia at 112 bpm in atrial fibrillation. She remains on multiple antihypertensives including metoprolol and diltiazem and lisinopril. She also continues to receive Lasix 40 mg IV twice a day. She is asymptomatic with that. 2-D echocardiogram showed an ejection fraction of 35-40% with diffuse hypokinesis, mild aortic stenosis mild mitral regurgitation and moderate to severe tricuspid regurgitation. She is mildly anemic today with a hemoglobin of 8.8, hematocrit 27.4 and normal platelet count of 175. Kidney function remains stable with BUN of 36 and creatinine 1.74. Cardiology consultation was done by Dr. Arturo Murillo and she underwent left heart and right heart catheterization showing a left main stenosis of 70%, proximal LAD 80%, RCA 70% and an 8 beat run of wide complex tachycardia, VT versus aberrancy. Cardiovascular surgery, Dr. Lora and electrophysiology, Dr. Atkinson were consulted for evaluation. During the CV surgery preoperative evaluation Dr. Lora decided she was not a candidate for surgical intervention due to poor pulmonary function results showing an FEV1 of 0.30. Given such poor pulmonary function it is unlikely that she could ever be extubated post surgery. Nephrology was consulted for acute on chronic stage III kidney disease. Her creatinine at admission was 1.7 and has now returned to the baseline. Palliative care has evaluated and discussed options and goals of care with patient and family. While the patient is very disappointed about not having surgery she does understand the reasons for it being canceled. She does not wish to pursue hospice at this time and the family supports her in this as they feel she was so disappointed over the surgery cancellation that she needs to resume more normal activities and possibly pursue rehabilitation at this time but are aware that hospice is an option should the patient choose at a future date. . Family/friend interactions Met with family in the room including grandchildren niece and daughter. Events leading up to admission and during admission were discussed. They were updated on current medical parameters. Extensive education was provided regarding the nature of the coronary artery disease and the potential options as described by cardiology and cardiovascular surgery. They are very supportive of her goals to live as active and happy life for as long as she can. They would like to explore the goals of rehabilitation to give her the best quality of life for the remainder of her life. They are aware of the diagnosis and prognosis, however, feel that she would be best served returning to her family at home and resuming her normal activities as tolerated. They do not wish to pursue hospice at this time. Again it was reaffirmed with the patient that she wishes to be a DO NOT RESUSCITATE, which she reiterated she did, and a [place] DNR form was signed by the patient and placed in the chart. The nurse was updated. (Natalie Mancia) Advance Directives Living Will: Never completed Health Care Surrogate: Never completed Durable Power of Pt Escort: Never completed (Natalie Mancia) Advance Directive Specifics Documented care wishes: DO NOT RESUSCITATE (Natalie Mancia) Objective Vital Signs Date Time Temp Pulse Resp B/P Pulse Ox O2 Delivery O2 Flow Rate FiO2 12/06/16 13:01 82 12/06/16 12:00 86 12/06/16 11:45 97.5 112 18 87/53 100 12/06/16 11:00 98 12/06/16 10:01 100 12/06/16 09:00 106 12/06/16 08:30 97.6 66 20 110/76 100 12/06/16 08:30 100 Nasal Cannula 2.00 12/06/16 08:00 100 12/06/16 07:01 105 12/06/16 06:00 71 12/06/16 05:00 98 12/06/16 04:00 93 12/06/16 03:00 97.5 74 18 100/63 100 12/06/16 03:00 85 12/06/16 02:00 87 12/06/16 01:00 96 12/06/16 00:00 100 12/05/16 23:00 97.6 76 18 87/63 100 12/05/16 23:00 92 12/05/16 22:00 104 12/05/16 21:00 104 12/05/16 20:00 96 Nasal Cannula 2.00 12/05/16 20:00 112 12/05/16 20:00 98.6 67 18 159/81 96 Manual Cuff/Auscultation Manual Cuff/Doppler 12/05/16 19:00 110 12/05/16 18:01 94 12/05/16 17:01 102 12/05/16 16:00 82 12/05/16 15:45 97.0 99 18 107/60 100 Intake & Output 12/06/16 12/06/16 07:00 19:00 Intake Total 318 ml Output Total 300 ml Balance 18 ml Intake Oral 240 ml IV Total 78 ml Output Urine Total 300 ml # Bowel Movements 2 Physical Exam CONSTITUTIONAL/GENERAL: This is an thin patient, in no apparent distress. TUBES/LINES/DRAINS: PIV in RFA ENT: Hearing grossly normal. NECK: Trachea midline. Supple, nontender. No palpable thyroid enlargement or nodularity. CARDIOVASCULAR: Irregular rhythm, controlled rate without murmurs, gallops, or rubs. No JVD. Peripheral pulses symmetric. RESPIRATORY/CHEST: Symmetric, unlabored respirations. Clear, diminished to auscultation. Breath sounds equal bilaterally. No wheezes, rales, or rhonchi. GASTROINTESTINAL: Abdomen soft, non-tender, nondistended. No hepato-splenomegaly , or palpable masses. No guarding. Bowel sounds present. GENITOURINARY: Without palpable bladder distension. MUSCULOSKELETAL: Extremities without clubbing or cyanosis. 2+ dependent edema left greater than right. No joint tenderness or effusion noted. No calf tenderness. No mottling or clubbing. NEUROLOGICAL: Awake and alert. Motor and sensory grossly within normal limits. Follows commands. Moves all extremities. PSYCHIATRIC: No obvious anxiety/depression, no apparent hallucinations or other psychotic thought process. (Natalie Mancia) Diagnostic Tests Laboratory Laboratory Tests Test 12/03/16 12/04/16 12/04/16 12/04/16 18:30 04:42 11:01 16:45 Activated Partial 46.0 SEC 44.9 SEC Thromboplast Time (24.3-30.1) (24.3-30.1) Sodium Level 139 MEQ/L (136-145) Potassium Level 4.6 MEQ/L (3.5-5.1) Chloride Level 101 MEQ/L (98-107) Carbon Dioxide Level 28.6 MEQ/L (21.0-32.0) Anion Gap 9 MEQ/L (5-15) Blood Urea Nitrogen 31 MG/DL (7-18) Creatinine 1.83 MG/DL (0.50-1.00) Estimat Glomerular Filtration 26 ML/MIN (>89) Rate Random Glucose 150 MG/DL (74-106) Calcium Level 8.8 MG/DL (8.5-10.1) Nasal Screen MRSA (PCR) MRSA NOT DETECTED (NOT DETECT) Test 12/05/16 12/05/16 12/06/16 05:41 07:10 06:01 Activated Partial 48.5 SEC 45.3 SEC Thromboplast Time (24.3-30.1) (24.3-30.1) Sodium Level 140 MEQ/L 141 MEQ/L (136-145) (136-145) Potassium Level 4.1 MEQ/L 4.1 MEQ/L (3.5-5.1) (3.5-5.1) Chloride Level 101 MEQ/L 103 MEQ/L (98-107) (98-107) Carbon Dioxide Level 30.6 MEQ/L 31.5 MEQ/L (21.0-32.0) (21.0-32.0) Anion Gap 8 MEQ/L (5-15) 7 MEQ/L (5-15) Blood Urea Nitrogen 34 MG/DL (7-18) 36 MG/DL (7-18) Creatinine 1.87 MG/DL 1.74 MG/DL (0.50-1.00) (0.50-1.00) Estimat Glomerular Filtration 26 ML/MIN (>89) 28 ML/MIN (>89) Rate Random Glucose 100 MG/DL 110 MG/DL (74-106) (74-106) Hemoglobin A1c 5.9 % (4.3-6.0) Calcium Level 8.9 MG/DL 9.1 MG/DL (8.5-10.1) (8.5-10.1) Blood Type A POSITIVE A POSITIVE Antibody Screen POSITIVE Antibody Identification Anti-E Antigen Identification E Antigen - NEGATIVE Crossmatch Leukocyte-Reduced Red Blood Cells Blood Bank Comment White Blood Count 6.4 TH/MM3 (4.0-11.0) Red Blood Count 3.24 MIL/MM3 (4.00-5.30) Hemoglobin 8.8 GM/DL (11.6-15.3) Hematocrit 27.4 % (35.0-46.0) Mean Corpuscular Volume 84.6 FL (80.0-100.0) Mean Corpuscular Hemoglobin 27.1 PG (27.0-34.0) Mean Corpuscular Hemoglobin 32.1 % Concent (32.0-36.0) Red Cell Distribution Width 17.7 % (11.6-17.2) Platelet Count 175 TH/MM3 (150-450) Mean Platelet Volume 10.1 FL (7.0-11.0) (Natalie Mancia) Result Diagram: 12/06/16 0612/06/16600 Imaging Last Impressions Lower Extremity Ultrasound 12/04/16 0000 Signed Impressions: Service Date/Time: Sunday, December 04, 2016 15:23 - CONCLUSION: Normal examination. Slava Liu MD Carotid Artery Ultrasound 12/04/16 0000 Signed Impressions: Service Date/Time: Sunday, December 04, 2016 16:12 - CONCLUSION: No evidence of flow-limiting carotid stenosis. Slava Liu MD Renal Ultrasound 12/01/16 0000 Signed Impressions: Service Date/Time: Thursday, December 01, 2016 22:24 - CONCLUSION: 1. Atrophic kidneys. Mild thickening of the bladder wall of unknown etiology. Lex Uribe MD Chest X-Ray 11/29/16 0000 Signed Impressions: Service Date/Time: Tuesday, November 29, 2016 10:12 - CONCLUSION: 1. Cardiomegaly with pulmonary vascular engorgement. No infiltrates. 2. Tiny left effusion. Prem Noland Jr., MD Foot X-Ray 11/28/16 0000 Signed Impressions: Service Date/Time: Monday, November 28, 2016 13:05 - CONCLUSION: 1. No acute bony abnormality identified. Obed Hurtado MD Procedures Left and right heart catheterization 12/01/16 (Natalie Mancia) Assessment and Plan Disease Oriented Problem List: (1) Afib (2) Atrial fibrillation (3) Diabetes mellitus (4) Chronic systolic CHF (congestive heart failure) (5) Acute worsening of stage 3 chronic kidney disease (6) Coronary artery disease (7) Chronic GERD (8) Pacemaker (9) Hypertension (10) Gout (11) COPD (chronic obstructive pulmonary disease) (12) Cardiomyopathy Symptom Scale: (1) Debility 0-10 Scale: Unable to quantify (2) Diarrhea 0-10 Scale: Unable to quantify (3) Dyspnea and respiratory abnormalities 0-10 Scale: Unable to quantify (4) Pain 0-10 Scale: Unable to quantify (5) Edema 0-10 Scale: Unable to quantify (6) Cough Pertinent Non-Medical Issues Psychosocial:She was born in [facility] but moved to [place] when she was 5 years old. She has remained in [place] for the rest of her life. She quit high school at about age [age] and having a total of 6 of her own children and 3 stepchildren. She is currently . 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 She now lives with her son due to progressive functional decline and need for frequent medical follow-up. Spiritual: Anglican requests insulation power unit tender visit. Legal: Ethical issues impacting care: Important Contacts Son-Wilman Rincon (resides with) Daughter-Lizzy Castro Daughter-Freida Sanchez [phone] Daughter-Josefina Cruz Son-James Castle-Jeronimo Castle-Nagi Sylvester . Prognosis Her prognosis is poor. She has a history of chronic tobacco abuse totaling 60- 70 pack years with medical comorbidities of severe COPD with FEV1 of 0.3, triple -vessel coronary artery disease unamenable to surgical intervention, worsening renal insufficiency suspected to be cardiorenal syndrome, chronic dyspnea, atrial fibrillation requiring permanent pacemaker implantation, chronic dependent edema, diabetes mellitus and chronic systolic heart failure with ejection fraction of 35-40%. She has now reached maximum medical management with the use of beta tiffanie, diuretic, statin, calcium channel tiffanie and nebulizers. Her poor respiratory status prohibits surgery and given her worsening renal function the burden of surgery was felt to be greater than the benefit. She has requested a DO NOT RESUSCITATE status and she is discussing the possibility of hospice with her family. . Code Status: No Code Plan PLAN: Legal decision maker: She is currently capacitated to be her own decision maker however has specified she would like her children to be her co-decision makers in the case of her incapacitation. She was offered the opportunity to complete a healthcare surrogate form, which she declined at this time, and that will be readdressed at a future encounters. Goals: She does not wish to have aggressive measures and understands that her diseases are not reversible. She is realistic about her goals and has requested a DO NOT RESUSCITATE status. She has a large and supportive family that agree with her decision. They are discussing the possibility of home with physical therapy versus short-term rehabilitation. Per my discussion with the family they feel this may keep her in a more hopeful frame of mind for the remainder of her life CODE STATUS: DO NOT RESUSCITATE SYMPTOMS:Dyspnea, pain, edema, debility, diarrhea * Dyspnea-she remains mildly dyspneic with activity and requires 2 pillows at night to sleep. She remains on oxygen in the hospital however her 2 minute walk test did not support home oxygen at this time. * Pain-she complains of intermittent pain between her shoulder blades which occur with activity and resolve with rest likely related to her coronary artery disease. She is on maximal medical therapy for that. She denies any pain today. * Edema-she states this is improving on Lasix 40 mg twice daily. Diuresis may at some point he limited by progressive kidney dysfunction. Continue leg elevation. * Debility-she has moved from independent living status in to her son's home for better support. Ambulated with physical therapy today. Plan to continue while in hospital. * Diarrhea-she did have multiple episodes just prior to admission and reported this as an admitting symptom however has resolved since admission. * Cough-dry cough which awakens her and resolves with drinking water. This may be due to the use of nasal cannula oxygen, which could be weaned if tolerated. Palliative care will continue to follow the patient during hospital course as condition evolves, to assist patient/decision-maker with understanding of their medical conditions, weighing benefits/burdens of treatment options, for clarification of goals of treatment. Additionally will assist with any symptoms of palliative concern. . (Natalie Mancia) Attestation To help prompt me to consider important information that might be impacting today's encounter and assessment, information from prior notes written by myself or my colleagues may have been "brought forward" into today's note. My signature on this note, however, is an attestation that I personally performed the exam, history, and/or decision-making noted today, and, unless otherwise indicated, the interactions with patient, family, and staff as well as the review of records all occurred today. I also attest that the listed assessment and stated plan reflect my best clinical judgment today based on the combination of historical information, prior notes, and today's exam/ interactions. When time spent is documented, it refers only to time spent today by the signer, or if indicated, combined time spent today by collaborating physician/nurse practitioner. (Natalie Mancia) Collaborating MD Comments . Chart reviewed. Case discussed with palliative care SHOP FIRER/FIREMAN. Above SHOP FIRER/FIREMAN note reviewed and I concur. . (Yonis Elaine MD) Natalie Mancia December 06, 2016 15:59 Yonis Elaine MD December 12, 2016 16:32 Natalie Mancia December 06, 2016 3:59 pm
[2016-12-06] MEDS: PRAVASTATIN SOD 80 MG TAB PO SCH (22:38)
[2016-12-07] VITALS (27 sets, daily range): BP systolic 86–107; BP diastolic 50–76; PULSE 65–112; RESP 18–20; TEMP 96.9–98.9; O2SAT 95–100
[2016-12-07] MEDS: INSULIN ASPART SUPPLEMENTAL SCALE SQ SCH ×4 (06:14→21:00)
[2016-12-07 06:20] LABS: APTT (PATIENT) 47.2 SEC (24.3-30.1)
[2016-12-07] MEDS: FUROSEMIDE 40 MG TAB PO SCH ×2 (08:01→18:04)
[2016-12-07] MEDS: PANTOPRAZOLE SOD 40 MG DELAYED RELEASE TAB PO SCH (08:01)
[2016-12-07] MEDS: POTASSIUM CHLORIDE 20 MEQ CONTROLLED RELEASE TAB PO SCH (08:01)
[2016-12-07] MEDS: DILTIAZEM-CD 120 MG CAP ER PO SCH (08:01)
[2016-12-07] MEDS: LISINOPRIL 5 MG TAB PO SCH (08:02)
[2016-12-07] MEDS: SODIUM CHLORIDE 0.9% FLUSH 10 ML FLUSH IV FLUSH SCH ×2 (08:02→22:20)
[2016-12-07] MEDS: METOPROLOL TARTRATE 100 MG TAB PO SCH (08:06)
--- NOTE | 2016-12-07 08:28 | HHI.PR ---
Subjective Remarks Follow-up CHF, CAD. The patient states that she feels okay today. Shortness of breath only with exertion. Denies chest pain. Objective Vitals Vital Signs Date Time Temp Pulse Resp B/P Pulse Ox O2 Delivery O2 Flow Rate FiO2 12/07/16 07:00 96 12/07/16 07:00 100 Nasal Cannula 2.00 12/07/16 07:00 96.9 110 20 91/68 97 12/07/16 06:00 96 12/07/16 05:00 92 12/07/16 04:00 94 12/07/16 04:00 98.9 80 20 94/70 99 12/07/16 03:00 92 12/07/16 02:00 84 12/07/16 01:00 90 12/07/16 00:00 97.6 100 20 107/62 100 12/07/16 00:00 90 12/06/16 23:00 98 12/06/16 22:00 90 12/06/16 21:00 94 12/06/16 20:00 97.6 110 20 112/70 98 12/06/16 20:00 100 Nasal Cannula 2.00 12/06/16 20:00 90 12/06/16 18:01 96 12/06/16 17:00 88 12/06/16 16:00 86 12/06/16 15:15 98.3 75 18 88/54 100 12/06/16 15:00 78 12/06/16 14:00 80 12/06/16 13:01 82 12/06/16 12:00 86 12/06/16 11:45 97.5 112 18 87/53 100 12/06/16 11:00 98 12/06/16 10:01 100 12/06/16 09:00 106 12/06/16 08:30 97.6 66 20 110/76 100 12/06/16 08:30 100 Nasal Cannula 2.00 I/O 12/06/16 12/06/16 12/06/16 12/07/16 12/07/16 12/07/16 07:00 15:00 23:00 07:00 15:00 23:00 Intake Total 318 ml 410 ml 553 ml Output Total 300 ml 350 ml 800 ml Balance 18 ml 60 ml -247 ml Intake Oral 240 ml 360 ml 480 ml IV Total 78 ml 50 ml 73 ml Output Urine Total 300 ml 350 ml 800 ml # Voids 4 # Bowel Movements 2 2 Result Diagram: 12/06/1660012/06/16600 Imaging Last Impressions Lower Extremity Ultrasound 12/04/16 0000 Signed Impressions: Service Date/Time: Sunday, December 04, 2016 15:23 - CONCLUSION: Normal examination. Slava Liu MD Carotid Artery Ultrasound 12/04/16 0000 Signed Impressions: Service Date/Time: Sunday, December 04, 2016 16:12 - CONCLUSION: No evidence of flow-limiting carotid stenosis. Slava Liu MD Renal Ultrasound 12/01/16 0000 Signed Impressions: Service Date/Time: Thursday, December 01, 2016 22:24 - CONCLUSION: 1. Atrophic kidneys. Mild thickening of the bladder wall of unknown etiology. Lex Uribe MD Chest X-Ray 11/29/16 Signed Impressions: Service Date/Time: Tuesday, November 29, 2016 10:12 - CONCLUSION: 1. Cardiomegaly with pulmonary vascular engorgement. No infiltrates. 2. Tiny left effusion. Prem Noland Jr., MD Foot X-Ray 11/28/16 Signed Impressions: Service Date/Time: Monday, November 28, 2016 13:05 - CONCLUSION: 1. No acute bony abnormality identified. Obed Hurtado MD Objective Remarks General: Elderly female in no acute distress. Sitting up in a chair. Heart: Regular rate and rhythm. No murmur. Lungs: Clear to auscultation bilaterally. Breathing is nonlabored. Abdomen: Soft, nontender, nondistended. Extremities: Trace bilateral lower extremity edema. Psych: Alert and oriented. Procedures None Urinary Catheter: No Vascular Central Line Catheter: No A/P Problem List: (1) CHF exacerbation ICD Code: I50.9 Status: Acute (2) Atrial fibrillation ICD Code: I48.91 Status: Chronic (3) Diabetes mellitus ICD Code: E11.9 Status: Chronic (4) Right foot pain ICD Code: M79.671 Status: Acute (5) Chronic systolic CHF (congestive heart failure) ICD Code: I50.22 Status: Chronic (6) Acute worsening of stage 3 chronic kidney disease ICD Code: N18.3 Status: Acute (7) Coronary artery disease ICD Code: I25.10 Status: Acute (8) Cardiomyopathy ICD Code: I42.9 Status: Acute Assessment and Plan 1. Acute exacerbation of chronic systolic congestive heart failure: Appreciate cardiology recommendations. Continue Lasix. Swelling has improved. 2. Acute worsening of chronic kidney disease stage III: Creatinine remains elevated. Monitor labs. Appreciate nephrology recommendations. Renal ultrasound report noted. 3. Dyspnea, hypoxia: Secondary to CHF. Respiratory walk test showed no need for home oxygen on 11/29/16. 4. Diabetes mellitus type 2: Metformin on hold secondary to elevated creatinine. Monitor Accu-Cheks and cover with sliding scale insulin. 5. Right foot pain: Appreciate podiatry recommendations. 6. Right lower extremity edema: Keep elevated. Continue diuretics. Ultrasound negative for DVT. 7. DVT prophylaxis: Xarelto on hold prior in anticipation of surgery. 8. Coronary artery disease, cardiomyopathy: Status post cardiac catheterization. Patient was found to have severe left main and three-vessel coronary artery disease. On heparin drip. Appreciate cardiothoracic surgery recommendations. The patient is not felt to be a surgical candidate due to poor pulmonary function. Palliative care has been consulted. The patient would like to go to rehabilitation and then home. She and her family are considering hospice care. Discharge Planning Possible discharge today or tomorrow to inpatient rehabilitation versus SNF if arrangements are made. The patient and her family are considering hospice care, but at this time would like to pursue rehabilitation for strengthening. Discussed with case management. Discussed with patient's family at bedside. Problem Qualifiers (1) CHF exacerbation: Qualified Code: I50.23 - Acute on chronic systolic congestive heart failure (2) Diabetes mellitus: Ashish Mahoney MD December 07, 2016 08:28
[2016-12-07] MEDS: METOPROLOL TARTRATE 50 MG TAB PO SCH ×2 (09:00→22:19)
[2016-12-07] MEDS: RIVAROXABAN 15 MG TAB PO SCH (10:02)
[2016-12-07 11:06] LABS: AUTOMATED NEUTROPHIL # 4.3 TH/MM3 (1.8-7.7); BASOPHIL # 0.1 TH/MM3 (0-0.2); BASOPHIL % 0.9 % (0.0-2.0); EOSINOPHIL # 0.1 TH/MM3 (0-0.4); EOSINOPHIL % 1.9 % (0.0-4.0); HEMATOCRIT 28.9 % (35.0-46.0); HEMO FLAGS DIFF FINAL; LYMPH % 19.3 % (9.0-44.0); LYMPHOCYTE # 1.2 TH/MM3 (1.0-4.8); MEAN CELL VOLUME 85.2 FL (80.0-100.0); MEAN CORPUSCULAR HEMOGLOBIN 26.5 PG (27.0-34.0); MEAN CORPUSCULAR HGB CONC 31.1 % (32.0-36.0); MONO % 10.5 % (0.0-8.0); NEUT % 67.4 % (16.0-70.0); PLATELET COUNT 181 TH/MM3 (150-450); RED BLOOD COUNT 3.39 MIL/MM3 (4.00-5.30); RED CELL DISTRIBUTION WIDTH 17.8 % (11.6-17.2); WHITE BLOOD COUNT 6.4 TH/MM3 (4.0-11.0)
[2016-12-07 11:34] LABS: BICARBONATE 31.4 MEQ/L (21.0-32.0); POTASSIUM 4.1 MEQ/L (3.5-5.1)
--- NOTE | 2016-12-07 14:52 | PD.CARD.PN ---
Subjective Subjective Remarks alert in nad Objective Vital Signs / I&O Vital Signs Date Time Temp Pulse Resp B/P Pulse Ox O2 Delivery O2 Flow Rate FiO2 12/07/16 13:00 73 12/07/16 12:00 75 12/07/16 11:09 100 12/07/16 11:00 97.6 83 18 98/50 95 12/07/16 10:00 90 12/07/16 09:00 95 12/07/16 08:00 99 12/07/16 07:00 96 12/07/16 07:00 90 12/07/16 07:00 100 Nasal Cannula 2.00 12/07/16 07:00 96.9 110 20 91/68 97 12/07/16 06:00 96 12/07/16 05:00 92 12/07/16 04:00 94 12/07/16 04:00 98.9 80 20 94/70 99 12/07/16 03:00 92 12/07/16 02:00 84 12/07/16 01:00 90 12/07/16 00:00 97.6 100 20 107/62 100 12/07/16 00:00 90 12/06/16 23:00 98 12/06/16 22:00 90 12/06/16 21:00 94 12/06/16 20:00 97.6 110 20 112/70 98 12/06/16 20:00 100 Nasal Cannula 2.00 12/06/16 20:00 90 12/06/16 18:01 96 12/06/16 17:00 88 12/06/16 16:00 86 12/06/16 15:15 98.3 75 18 88/54 100 12/06/16 15:00 78 I/O 12/06/16 12/06/16 12/06/16 12/07/16 12/07/16 12/07/16 07:00 15:00 23:00 07:00 15:00 23:00 Intake Total 318 ml 410 ml 553 ml Output Total 300 ml 350 ml 800 ml Balance 18 ml 60 ml -247 ml Intake Oral 240 ml 360 ml 480 ml IV Total 78 ml 50 ml 73 ml Output Urine Total 300 ml 350 ml 800 ml # Voids 4 # Bowel Movements 2 2 Physical Exam GENERAL: SKIN: Warm and dry. HEAD: Normocephalic. EYES: No scleral icterus. No injection or drainage. NECK: Supple, trachea midline. No JVD or lymphadenopathy. CARDIOVASCULAR: Regular rate and rhythm without murmurs, gallops, or rubs. RESPIRATORY: Breath sounds equal bilaterally. No accessory muscle use. GASTROINTESTINAL: Abdomen soft, non-tender, nondistended. MUSCULOSKELETAL: No cyanosis, or edema. BACK: Nontender without obvious deformity. No CVA tenderness. Laboratory Laboratory Tests Test 12/07/16 12/07/16 05:30 10:42 Activated Partial 47.2 SEC Thromboplast Time White Blood Count 6.4 TH/MM3 Red Blood Count 3.39 MIL/MM3 Hemoglobin 9.0 GM/DL Hematocrit 28.9 % Mean Corpuscular Volume 85.2 FL Mean Corpuscular Hemoglobin 26.5 PG Mean Corpuscular Hemoglobin 31.1 % Concent Red Cell Distribution Width 17.8 % Platelet Count 181 TH/MM3 Mean Platelet Volume 10.2 FL Neutrophils (%) (Auto) 67.4 % Lymphocytes (%) (Auto) 19.3 % Monocytes (%) (Auto) 10.5 % Eosinophils (%) (Auto) 1.9 % Basophils (%) (Auto) 0.9 % Neutrophils # (Auto) 4.3 TH/MM3 Lymphocytes # (Auto) 1.2 TH/MM3 Monocytes # (Auto) 0.7 TH/MM3 Eosinophils # (Auto) 0.1 TH/MM3 Basophils # (Auto) 0.1 TH/MM3 CBC Comment DIFF FINAL Differential Comment Sodium Level 138 MEQ/L Potassium Level 4.1 MEQ/L Chloride Level 99 MEQ/L Carbon Dioxide Level 31.4 MEQ/L Anion Gap 8 MEQ/L Blood Urea Nitrogen 37 MG/DL Creatinine 1.74 MG/DL Estimat Glomerular Filtration 28 ML/MIN Rate Random Glucose 149 MG/DL Calcium Level 9.0 MG/DL Assessment and Plan Problem List: (1) Coronary artery disease (2) CHF exacerbation (3) Afib (4) Cardiomyopathy (5) Diabetes mellitus Assessment and Plan 1.) Chf -suboptimally controlled due to lm cad, has been tachycardic and hypotensive, continue diuresis, f/u bnp in am, yuni held due to arf and hypotension; 2.) AFib - rate controlled on cardizem and lopressor, hold xarelto for cath, on iv heparin 3.) wide complex tachycardia - consult Dr Demetrio 4.) CAD - fev=.3, not candidate for cabg per Dr Lora. continue heparin, consult palliative care, patient considering hospice Problem Qualifiers (1) CHF exacerbation: Qualified Code: I50.23 - Acute on chronic systolic congestive heart failure (2) Diabetes mellitus: Arturo Murillo MD December 07, 2016 14:52
--- NOTE | 2016-12-07 16:17 | HHI.HCPN ---
Reason for visit a. To assist with evaluation and management of symptoms including: Dyspnea, pain, edema, debility, cough. b. To assist medical decision maker(s) with: better understanding of current medical conditions; weighing benefits/burdens of medical treatment options; making medical treatment decisions. . (Natalie Mancia) Subjective/Interval History 81-year-old female admitted with severe coronary artery disease, not a candidate for surgery due to severe pulmonary compromise and progressive kidney disease. She is seen today to evaluate dyspnea, edema, debility, cough and pain. She is resting in bed at this visit looking pale and fatigued. She has several family members at bedside. She remains on oxygen at 2 L via nasal cannula and a dry cough she had yesterday has resolved. Her vital signs are stable with blood pressure 98/50, heart rate 83, respiratory rate 18, oxygen saturation 95%, afebrile. She denies any chest pain or shortness of breath at rest. She was up out of bed all morning per the family and now feels tired. She has been cleared by all specialties for discharge and plans are in process. Patient has requested to go to [facility] in [facility] to be near her family and case management has forwarded referral. Acceptance is pending. While she is very realistic about her prognosis, and is aware that she may have recurrence of symptoms, she wishes to pursue rehabilitation to optimize her function and quality of life. Ultimately she would return to her son's home where she previously lived if possible. She has a very large family to include 9 children, including stepchildren, and healthcare surrogate status was discussed with her and her family today. It was the joint decision of patient and family that her son, Jose Luis Rincon, should be her healthcare surrogate as he would be the one providing her direct care and could contact the remainder of the family and act as the spokesperson. Healthcare surrogate was completed, signed and a copy placed in the chart with a copy given to the family. Consultations Cardiology consultation was done by Dr. Arturo Murillo and she underwent left heart and right heart catheterization showing a left main stenosis of 70%, proximal LAD 80%, RCA 70% and an 8 beat run of wide complex tachycardia, VT versus aberrancy. Medications have been optimized and no further cardiology interventions have been planned. Cardiovascular surgery, Dr. Lora evaluated her and decided she was not a candidate for surgical intervention due to poor pulmonary function results showing an FEV1 of 0.30. It was his opinion that, given such poor pulmonary function it is unlikely that she could ever be extubated post surgery. No further cardiovascular surgery intervention is planned. Nephrology was consulted for acute on chronic stage III kidney disease. Her creatinine at admission was 1.7 and has now returned to the baseline. No further nephrology intervention is planned. . (Natalie Mancia) Advance Directives Living Will: Never completed Health Care Surrogate: Copy in medical record Durable Power of Head Of Conservation: Never completed (Natalie Mancia) Advance Directive Specifics Health Care Surrogate(s): Tatiana Rincon Documented care wishes: DO NOT RESUSCITATE (Natalie Mancia) Objective Vital Signs Date Time Temp Pulse Resp B/P Pulse Ox O2 Delivery O2 Flow Rate FiO2 12/07/16 14:51 75 12/07/16 13:00 73 12/07/16 12:00 75 12/07/16 11:09 100 12/07/16 11:00 97.6 83 18 98/50 95 12/07/16 10:00 90 12/07/16 09:00 95 12/07/16 08:00 99 12/07/16 07:00 96 12/07/16 07:00 90 12/07/16 07:00 100 Nasal Cannula 2.00 12/07/16 07:00 96.9 110 20 91/68 97 12/07/16 06:00 96 12/07/16 05:00 92 12/07/16 04:00 94 12/07/16 04:00 98.9 80 20 94/70 99 12/07/16 03:00 92 12/07/16 02:00 84 12/07/16 01:00 90 12/07/16 00:00 97.6 100 20 107/62 100 12/07/16 00:00 90 12/06/16 23:00 98 12/06/16 22:00 90 12/06/16 21:00 94 12/06/16 20:00 97.6 110 20 112/70 98 12/06/16 20:00 100 Nasal Cannula 2.00 12/06/16 20:00 90 5/24/17 18:01 96 12/06/16 17:00 88 12/06/16 16:00 86 Intake & Output 12/07/16 12/07/16 07:00 19:00 Intake Total 963 ml Output Total 1150 ml Balance -187 ml Intake Oral 840 ml IV Total 123 ml Output Urine Total 1150 ml # Voids 4 # Bowel Movements 2 Physical Exam CONSTITUTIONAL/GENERAL: This is an thin patient, in no apparent distress. TUBES/LINES/DRAINS: PIV in RFA ENT: Hearing grossly normal. NECK: Trachea midline. Supple, nontender. No palpable thyroid enlargement or nodularity. CARDIOVASCULAR: Irregular rhythm, controlled rate without murmurs, gallops, or rubs. No JVD. Peripheral pulses symmetric. RESPIRATORY/CHEST: Symmetric, unlabored respirations. Clear, diminished to auscultation. Breath sounds equal bilaterally. No wheezes, rales, or rhonchi. GASTROINTESTINAL: Abdomen soft, non-tender, nondistended. No hepato-splenomegaly , or palpable masses. No guarding. Bowel sounds present. GENITOURINARY: Without palpable bladder distension. MUSCULOSKELETAL: Extremities without clubbing or cyanosis. 2+ dependent edema on left extending to upper calf, right with 1-2+ edema at the ankle. NEUROLOGICAL: Awake and alert. Motor and sensory grossly within normal limits. Follows commands. Moves all extremities. PSYCHIATRIC: No obvious anxiety/depression, no apparent hallucinations or other psychotic thought process. (Natalie Mancia) Diagnostic Tests Laboratory Laboratory Tests Test 12/04/16 12/05/16 12/05/16 12/06/16 16:45 05:41 07:10 06:01 Nasal Screen MRSA (PCR) MRSA NOT DETECTED (NOT DETECT) Activated Partial 48.5 SEC 45.3 SEC Thromboplast Time (24.3-30.1) (24.3-30.1) Sodium Level 140 MEQ/L 141 MEQ/L (136-145) (136-145) Potassium Level 4.1 MEQ/L 4.1 MEQ/L (3.5-5.1) (3.5-5.1) Chloride Level 101 MEQ/L 103 MEQ/L (98-107) (98-107) Carbon Dioxide Level 30.6 MEQ/L 31.5 MEQ/L (21.0-32.0) (21.0-32.0) Anion Gap 8 MEQ/L (5-15) 7 MEQ/L (5-15) Blood Urea Nitrogen 34 MG/DL (7-18) 36 MG/DL (7-18) Creatinine 1.87 MG/DL 1.74 MG/DL (0.50-1.00) (0.50-1.00) Estimat Glomerular Filtration 26 ML/MIN (>89) 28 ML/MIN (>89) Rate Random Glucose 100 MG/DL 110 MG/DL (74-106) (74-106) Hemoglobin A1c 5.9 % (4.3-6.0) Calcium Level 8.9 MG/DL 9.1 MG/DL (8.5-10.1) (8.5-10.1) Blood Type A POSITIVE A POSITIVE Antibody Screen POSITIVE Antigen Identification E Antigen - NEGATIVE Crossmatch Leukocyte-Reduced Red Blood Cells Blood Bank Comment Antibody Identification Anti-E Routine Panel Pathologist Interp White Blood Count 6.4 TH/MM3 (4.0-11.0) Red Blood Count 3.24 MIL/MM3 (4.00-5.30) Hemoglobin 8.8 GM/DL (11.6-15.3) Hematocrit 27.4 % (35.0-46.0) Mean Corpuscular Volume 84.6 FL (80.0-100.0) Mean Corpuscular Hemoglobin 27.1 PG (27.0-34.0) Mean Corpuscular Hemoglobin 32.1 % Concent (32.0-36.0) Red Cell Distribution Width 17.7 % (11.6-17.2) Platelet Count 175 TH/MM3 (150-450) Mean Platelet Volume 10.1 FL (7.0-11.0) Test 12/07/16 12/07/16 05:30 10:42 Activated Partial 47.2 SEC Thromboplast Time (24.3-30.1) White Blood Count 6.4 TH/MM3 (4.0-11.0) Red Blood Count 3.39 MIL/MM3 (4.00-5.30) Hemoglobin 9.0 GM/DL (11.6-15.3) Hematocrit 28.9 % (35.0-46.0) Mean Corpuscular Volume 85.2 FL (80.0-100.0) Mean Corpuscular Hemoglobin 26.5 PG (27.0-34.0) Mean Corpuscular Hemoglobin 31.1 % Concent (32.0-36.0) Red Cell Distribution Width 17.8 % (11.6-17.2) Platelet Count 181 TH/MM3 (150-450) Mean Platelet Volume 10.2 FL (7.0-11.0) Neutrophils (%) (Auto) 67.4 % (16.0-70.0) Lymphocytes (%) (Auto) 19.3 % (9.0-44.0) Monocytes (%) (Auto) 10.5 % (0.0-8.0) Eosinophils (%) (Auto) 1.9 % (0.0-4.0) Basophils (%) (Auto) 0.9 % (0.0-2.0) Neutrophils # (Auto) 4.3 TH/MM3 (1.8-7.7) Lymphocytes # (Auto) 1.2 TH/MM3 (1.0-4.8) Monocytes # (Auto) 0.7 TH/MM3 (0-0.9) Eosinophils # (Auto) 0.1 TH/MM3 (0-0.4) Basophils # (Auto) 0.1 TH/MM3 (0-0.2) CBC Comment DIFF FINAL Differential Comment Sodium Level 138 MEQ/L (136-145) Potassium Level 4.1 MEQ/L (3.5-5.1) Chloride Level 99 MEQ/L (98-107) Carbon Dioxide Level 31.4 MEQ/L (21.0-32.0) Anion Gap 8 MEQ/L (5-15) Blood Urea Nitrogen 37 MG/DL (7-18) Creatinine 1.74 MG/DL (0.50-1.00) Estimat Glomerular Filtration 28 ML/MIN (>89) Rate Random Glucose 149 MG/DL (74-106) Calcium Level 9.0 MG/DL (8.5-10.1) (Natalie Mancia) Result Diagram: 12/07/16 1042 12/07/16 1042 Imaging Last Impressions Lower Extremity Ultrasound 12/04/16 0000 Signed Impressions: Service Date/Time: Sunday, December 04, 2016 15:23 - CONCLUSION: Normal examination. Slava Liu MD Carotid Artery Ultrasound 12/04/16 0000 Signed Impressions: Service Date/Time: Sunday, December 04, 2016 16:12 - CONCLUSION: No evidence of flow-limiting carotid stenosis. Slava Liu MD Renal Ultrasound 12/01/16 0000 Signed Impressions: Service Date/Time: Thursday, December 01, 2016 22:24 - CONCLUSION: 1. Atrophic kidneys. Mild thickening of the bladder wall of unknown etiology. Lex Uribe MD Chest X-Ray 11/29/16 0000 Signed Impressions: Service Date/Time: Tuesday, November 29, 2016 10:12 - CONCLUSION: 1. Cardiomegaly with pulmonary vascular engorgement. No infiltrates. 2. Tiny left effusion. Prem Noland Jr., MD Foot X-Ray 11/28/16 0000 Signed Impressions: Service Date/Time: Monday, November 28, 2016 13:05 - CONCLUSION: 1. No acute bony abnormality identified. Obed Hurtado MD Procedures Left and right heart catheterization 12/01/16 (Natalie Mancia) Assessment and Plan Disease Oriented Problem List: (1) Afib (2) Atrial fibrillation (3) Diabetes mellitus (4) Chronic systolic CHF (congestive heart failure) (5) Acute worsening of stage 3 chronic kidney disease (6) Coronary artery disease (7) Chronic GERD (8) Pacemaker (9) Hypertension (10) Gout (11) COPD (chronic obstructive pulmonary disease) (12) Cardiomyopathy Symptom Scale: (1) Debility 0-10 Scale: Unable to quantify (2) Diarrhea 0-10 Scale: Unable to quantify (3) Dyspnea and respiratory abnormalities 0-10 Scale: Unable to quantify (4) Pain 0-10 Scale: Unable to quantify (5) Edema 0-10 Scale: Unable to quantify (6) Cough Pertinent Non-Medical Issues Psychosocial:She was born in [facility] but moved to [place] when she was 5 years old. She has remained in [place] for the rest of her life. She quit high school at about age [age] and having a total of 6 of her own children and 3 stepchildren. She is currently . 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 She now lives with her son due to progressive functional decline and need for frequent medical follow-up. Spiritual: Confucianism requests casino beverage server visit. Legal: Healthcare surrogate form naming her son, Jose Luis Rincon, healthcare surrogate was completed today. Ethical issues impacting care: Important Contacts Son-Wilman Rincon (resides with) Daughter-Lizzy Castro Daughter-Freida Sanchez [phone] Daughter-Josefina Cruz Son-James Castle-Jeronimoelizabet Sylvester Luisbritt-Nagi Sylvester . Prognosis Her prognosis is poor. She has a history of chronic tobacco abuse totaling 60- 70 pack years with medical comorbidities of severe COPD with FEV1 of 0.3, triple -vessel coronary artery disease unamenable to surgical intervention, worsening renal insufficiency suspected to be cardiorenal syndrome, chronic dyspnea, atrial fibrillation requiring permanent pacemaker implantation, chronic dependent edema, diabetes mellitus and chronic systolic heart failure with ejection fraction of 35-40%. She has now reached maximum medical management with the use of beta tiffanie, diuretic, statin, calcium channel tiffanie and nebulizers. Her poor respiratory status prohibits surgery and given her worsening renal function the burden of surgery was felt to be greater than the benefit. She has requested a DO NOT RESUSCITATE status and she has considered hospice however is opting for rehabilitation at this time. She may consider hospice in the future if her status continues to decline. . Code Status: No Code Plan PLAN: Legal decision maker: She is currently capacitated to be her own decision maker however has specified her son, Jose Luis Rincon as her healthcare surrogate. Goals: She does not wish to have aggressive measures and understands that her diseases are not reversible. She is realistic about her goals and has requested a DO NOT RESUSCITATE status. She has a large and supportive family that agree with her decision. They are discussing the possibility of home with physical therapy versus short-term rehabilitation. Per my discussion with the family they feel this may keep her in a more hopeful frame of mind for the remainder of her life CODE STATUS: DO NOT RESUSCITATE SYMPTOMS:Dyspnea, pain, edema, debility, diarrhea * Dyspnea-she remains mildly dyspneic with activity and requires 2 pillows at night to sleep. She remains on oxygen in the hospital, however, her 2 minute walk test did not support home oxygen at this time. She is not dyspneic at rest however physical therapy did note mild dyspnea with activity. * Pain-she complains of intermittent pain between her shoulder blades which occur with activity and resolve with rest likely related to her coronary artery disease. She is on maximal medical therapy for that. She denies any pain today. * Edema-she states this is improving on Lasix 40 mg twice daily. Diuresis may at some point he limited by progressive kidney dysfunction. Continue leg elevation, float heels. * Debility-she has moved from independent living status in to her son's home for better support. Ambulated with physical therapy today. Plan to continue while in hospital and is being evaluated for rehabilitation at [facility].. * Diarrhea - this has resolved since admission. * Cough-dry cough has resolved today. Palliative care will continue to follow the patient during hospital course as condition evolves, to assist patient/decision-maker with understanding of their medical conditions, weighing benefits/burdens of treatment options, for clarification of goals of treatment. Additionally will assist with any symptoms of palliative concern. . (Natalie Mancia) Attestation To help prompt me to consider important information that might be impacting today's encounter and assessment, information from prior notes written by myself or my colleagues may have been "brought forward" into today's note. My signature on this note, however, is an attestation that I personally performed the exam, history, and/or decision-making noted today, and, unless otherwise indicated, the interactions with patient, family, and staff as well as the review of records all occurred today. I also attest that the listed assessment and stated plan reflect my best clinical judgment today based on the combination of historical information, prior notes, and today's exam/ interactions. When time spent is documented, it refers only to time spent today by the signer, or if indicated, combined time spent today by collaborating physician/nurse practitioner. (Natalie Mancia) Collaborating MD Comments . Chart reviewed. Case discussed with palliative care TIP FINISHER. Above TIP FINISHER note reviewed and I concur. . (Yonis Elaine MD) Natalie Mancia December 07, 2016 16:17 Yonis Elaine MD December 12, 2016 16:39
--- NOTE | 2016-12-07 17:44 | HHI.NPPN ---
Subjective General Problems: Anemia, Edema, Heart Disease Renal Failure: Chronic, Acute, Stage III History of Present Illness 81-year-old female with past medical history of hypertension, diabetes mellitus, ischemic heart disease, chronic kidney disease, atrial fibrillation, who came to the hospital because of increased swelling of the legs and worsening shortness of breath. I was called to see the patient because of elevated BUN and creatinine. The patient has creatinine of 1.7 on admission. Additional Remarks Patient is alert, sitting on the chair and now off O2. Review of Systems General Constitutional: Fatigue Respiratory Lungs: SOB, Cough, Wheeze Cardiovascular Cardiac: Chest Pain, WOODRUFF Objective Data Data 12/06/16 12/07/16 19:00 07:00 Intake Total 963 ml Output Total 1150 ml Balance -187 ml Intake Oral 840 ml IV Total 123 ml Output Urine Total 1150 ml # Voids 4 # Bowel Movements 2 Vital Signs Date Time Temp Pulse Resp B/P Pulse Ox O2 Delivery O2 Flow Rate FiO2 12/07/16 16:15 65 12/07/16 15:56 97.8 67 18 86/63 100 12/07/16 15:54 70 12/07/16 14:51 75 12/07/16 13:00 73 12/07/16 12:00 75 12/07/16 11:09 100 12/07/16 11:00 97.6 83 18 98/50 95 12/07/16 10:00 90 12/07/16 09:00 95 12/07/16 08:00 99 12/07/16 07:00 96 12/07/16 07:00 90 12/07/16 07:00 100 Nasal Cannula 2.00 12/07/16 07:00 96.9 110 20 91/68 97 12/07/16 06:00 96 12/07/16 05:00 92 12/07/16 04:00 94 12/07/16 04:00 98.9 80 20 94/70 99 12/07/16 03:00 92 12/07/16 02:00 84 12/07/16 01:00 90 12/07/16 00:00 97.6 100 20 107/62 100 12/07/16 00:00 90 12/06/16 23:00 98 12/06/16 22:00 90 12/06/16 21:00 94 12/06/16 20:00 97.6 110 20 112/70 98 12/06/16 20:00 100 Nasal Cannula 2.00 12/06/16 20:00 90 12/06/16 18:01 96 -: 12/07/16 1042 12/07/16 1042 Physical Exam General Appearance: No Acute Distress, Comfortable Eyes Eye Exam: Pupils Equal Neck Neck Exam: Neck Supple Pulmonary Resp Exam: No Distress, Rhonchi, Sputum, Decreased Bases, Diminished Breath Sounds Cardiology CV Exam: Regular, Normal Sinus Rhythm Gastrointestinal/Abdomen GI Exam: Soft, Non-Tender, Bowel Sounds Present Extremeties Extremities Exam: Trace Edema Neurologic Neuro Exam: Alert, Awake, Oriented Psychiatric Psych Exam: Appropriate Responses Assessment/Plan Assessment Summary: NOEMI/Acute Renal Failure, Fluid/Volume Overload, CHF, Hypertension, CKD Stage III Problem List: (1) CHF exacerbation (2) Atrial fibrillation (3) Diabetes mellitus (4) Chronic systolic CHF (congestive heart failure) (5) Coronary artery disease (6) Acute worsening of stage 3 chronic kidney disease Plan Patient has been non oliguric. On Lasix, and KCl. Urine out put is better. Patient and family discussed with [facility] Since patient has multiple medical conditions, they decided to go for maximal medical therapy for now. Creatinine stable at 1.7. Continue Lasix. Patient to go to Rehab once arrangements done. Problem Qualifiers (1) CHF exacerbation: Qualified Code: I50.23 - Acute on chronic systolic congestive heart failure (2) Diabetes mellitus: Viridiana Ch MD December 07, 2016 17:44
[2016-12-07] MEDS: PRAVASTATIN SOD 80 MG TAB PO SCH (22:20)
[2016-12-08] VITALS (19 sets, daily range): BP systolic 94–119; BP diastolic 55–75; PULSE 68–110; RESP 16–20; TEMP 97.3–97.9; O2SAT 98–100
[2016-12-08] MEDS: INSULIN ASPART SUPPLEMENTAL SCALE SQ SCH ×2 (06:12→12:06)
[2016-12-08 06:35] LABS: AUTOMATED NEUTROPHIL # 4.5 TH/MM3 (1.8-7.7); BASOPHIL # 0.1 TH/MM3 (0-0.2); EOSINOPHIL # 0.1 TH/MM3 (0-0.4); EOSINOPHIL % 1.6 % (0.0-4.0); HEMO FLAGS DIFF FINAL; LYMPH % 19.6 % (9.0-44.0); LYMPHOCYTE # 1.3 TH/MM3 (1.0-4.8); MEAN CELL VOLUME 85.9 FL (80.0-100.0); MEAN CORPUSCULAR HEMOGLOBIN 26.3 PG (27.0-34.0); MEAN CORPUSCULAR HGB CONC 30.7 % (32.0-36.0); MONO % 11.6 % (0.0-8.0); NEUT % 66.2 % (16.0-70.0); PLATELET COUNT 178 TH/MM3 (150-450); RED BLOOD COUNT 3.49 MIL/MM3 (4.00-5.30); RED CELL DISTRIBUTION WIDTH 17.8 % (11.6-17.2); WHITE BLOOD COUNT 6.7 TH/MM3 (4.0-11.0)
[2016-12-08 07:01] LABS: BICARBONATE 31.6 MEQ/L (21.0-32.0); POTASSIUM 4.1 MEQ/L (3.5-5.1)
[2016-12-08] MEDS: SODIUM CHLORIDE 0.9% FLUSH 10 ML FLUSH IV FLUSH SCH (09:00)
[2016-12-08] MEDS: LISINOPRIL 5 MG TAB PO SCH (09:04)
[2016-12-08] MEDS: PANTOPRAZOLE SOD 40 MG DELAYED RELEASE TAB PO SCH (09:04)
[2016-12-08] MEDS: RIVAROXABAN 15 MG TAB PO SCH (09:05)
[2016-12-08] MEDS: DILTIAZEM-CD 120 MG CAP ER PO SCH (09:05)
[2016-12-08] MEDS: POTASSIUM CHLORIDE 20 MEQ CONTROLLED RELEASE TAB PO SCH (09:05)
[2016-12-08] MEDS: FUROSEMIDE 40 MG TAB PO SCH (09:06)
[2016-12-08] MEDS: METOPROLOL TARTRATE 50 MG TAB PO SCH (09:06)
--- NOTE | 2016-12-08 09:13 | HHI.PR ---
Subjective Remarks Pt states she feels ok. States "I fell asleep again" states she is hungry and will eat her breakfast now. denies any CP/SOB/N/V Objective Vitals Vital Signs Date Time Temp Pulse Resp B/P Pulse Ox O2 Delivery O2 Flow Rate FiO2 12/08/16 06:00 98 12/08/16 05:00 94 12/08/16 04:51 97.6 16 12/08/16 04:00 90 12/08/16 03:00 104 12/08/16 02:00 98 12/08/16 01:00 98 12/08/16 00:13 99 Nasal Cannula 2.00 12/08/16 00:00 110 12/08/16 00:00 97.9 110 18 115/75 98 12/07/16 23:00 100 12/07/16 22:30 105/76 12/07/16 22:00 112 12/07/16 21:00 100 12/07/16 20:00 100 12/07/16 20:00 97.9 86 18 99/64 99 12/07/16 19:00 87 12/07/16 18:00 74 12/07/16 17:00 98 12/07/16 16:15 65 12/07/16 15:56 97.8 67 18 86/63 100 12/07/16 15:54 70 12/07/16 14:51 75 12/07/16 13:00 73 12/07/16 12:00 75 12/07/16 11:09 100 12/07/16 11:00 97.6 83 18 98/50 95 12/07/16 10:00 90 I/O 12/07/16 12/07/16 12/07/16 12/08/16 12/08/16 12/08/16 07:00 15:00 23:00 07:00 15:00 23:00 Intake Total 553 ml 555 ml 480 ml Output Total 800 ml 510 ml 700 ml Balance -247 ml 45 ml -220 ml Intake Oral 480 ml 520 ml 480 ml IV Total 73 ml 35 ml 0 ml Output Urine Total 800 ml 510 ml 700 ml # Bowel Movements 1 1 Result Diagram: 12/08/16 0536 12/08/16 0536 Imaging Last Impressions Lower Extremity Ultrasound 12/04/16 0000 Signed Impressions: Service Date/Time: Sunday, December 04, 2016 15:23 - CONCLUSION: Normal examination. Slava Liu MD Carotid Artery Ultrasound 12/04/16 0000 Signed Impressions: Service Date/Time: Sunday, December 04, 2016 16:12 - CONCLUSION: No evidence of flow-limiting carotid stenosis. Slava Liu MD Renal Ultrasound 12/01/16 0000 Signed Impressions: Service Date/Time: Thursday, December 01, 2016 22:24 - CONCLUSION: 1. Atrophic kidneys. Mild thickening of the bladder wall of unknown etiology. Lex Uribe MD Chest X-Ray 11/29/16 0000 Signed Impressions: Service Date/Time: Tuesday, November 29, 2016 10:12 - CONCLUSION: 1. Cardiomegaly with pulmonary vascular engorgement. No infiltrates. 2. Tiny left effusion. Prem Nolnad Jr., MD Foot X-Ray 11/28/16 0000 Signed Impressions: Service Date/Time: Monday, November 28, 2016 13:05 - CONCLUSION: 1. No acute bony abnormality identified. Obed Hurtado MD Objective Remarks GENERAL: Well-nourished, well-developed patient, in no apparent distress on 2 L NC. CARDIOVASCULAR: Atrial fibrillation rhythm noted, controlled. No murmur appreciated. RESPIRATORY: no wheezing, GASTROINTESTINAL: Abdomen soft, non-tender, nondistended. No guarding. MUSCULOSKELETAL: swelling over the extremities is much improved, however there is swelling on the right foot, pitting, tender to palpation on the dorsal aspect over the metatarsal area, sensation is intact. she is able to move and wiggle her toes. NEUROLOGICAL: Awake and alert. Motor and sensory grossly within normal limits. Normal speech. Procedures None A/P Problem List: (1) CHF exacerbation ICD Code: I50.9 Status: Acute (2) Atrial fibrillation ICD Code: I48.91 Status: Chronic (3) Diabetes mellitus ICD Code: E11.9 Status: Chronic (4) Right foot pain ICD Code: M79.671 Status: Acute (5) Chronic systolic CHF (congestive heart failure) ICD Code: I50.22 Status: Chronic (6) Acute worsening of stage 3 chronic kidney disease ICD Code: N18.3 Status: Acute (7) Coronary artery disease ICD Code: I25.10 Status: Acute (8) Cardiomyopathy ICD Code: I42.9 Status: Acute Assessment and Plan 1. Acute exacerbation of chronic systolic congestive heart failure: Appreciate cardiology recommendations. Continue Lasix. Swelling has improved. 2. Acute worsening of chronic kidney disease stage III: Creatinine remains elevated at 2.0. Monitor labs. Appreciate nephrology recommendations. Renal ultrasound report noted. 3. Dyspnea, hypoxia: Secondary to CHF. Respiratory walk test showed no need for home oxygen on 11/29/16. 4. Diabetes mellitus type 2: Metformin on hold secondary to elevated creatinine. Monitor Accu-Cheks and cover with sliding scale insulin. 5. Right foot pain: Appreciate podiatry recommendations. 6. Right lower extremity edema: Keep elevated. Continue diuretics. Ultrasound negative for DVT. 7. DVT prophylaxis: Xarelto 8. Coronary artery disease, cardiomyopathy: Status post cardiac catheterization. Patient was found to have severe left main and three-vessel coronary artery disease. On xarelto. Appreciate cardiothoracic surgery recommendations. The patient is not felt to be a surgical candidate due to poor pulmonary function. Palliative care has been consulted. The patient would like to go to rehabilitation and then home. She and her family are considering hospice care. Discharge Planning Possible discharge today or tomorrow to inpatient rehabilitation versus SNF if arrangements are made. The patient and her family are considering hospice care, but at this time would like to pursue rehabilitation for strengthening. Problem Qualifiers (1) CHF exacerbation: Qualified Code: I50.23 - Acute on chronic systolic congestive heart failure (2) Diabetes mellitus: Margy Juares MD December 08, 2016 09:13
--- NOTE | 2016-12-08 09:21 | PD.CARD.PN ---
Subjective Subjective Remarks lucid in nad Objective Vital Signs / I&O Vital Signs Date Time Temp Pulse Resp B/P Pulse Ox O2 Delivery O2 Flow Rate FiO2 12/08/16 06:00 98 12/08/16 05:00 94 12/08/16 04:51 97.6 16 12/08/16 04:00 90 12/08/16 03:00 104 12/08/16 02:00 98 12/08/16 01:00 98 12/08/16 00:13 99 Nasal Cannula 2.00 12/08/16 00:00 110 12/08/16 00:00 97.9 110 18 115/75 98 12/07/16 23:00 100 12/07/16 22:30 105/76 12/07/16 22:00 112 12/07/16 21:00 100 12/07/16 20:00 100 12/07/16 20:00 97.9 86 18 99/64 99 12/07/16 19:00 87 12/07/16 18:00 74 12/07/16 17:00 98 12/07/16 16:15 65 12/07/16 15:56 97.8 67 18 86/63 100 12/07/16 15:54 70 12/07/16 14:51 75 12/07/16 13:00 73 12/07/16 12:00 75 12/07/16 11:09 100 12/07/16 11:00 97.6 83 18 98/50 95 12/07/16 10:00 90 I/O 12/07/16 12/07/16 12/07/16 12/08/16 12/08/16 12/08/16 07:00 15:00 23:00 07:00 15:00 23:00 Intake Total 553 ml 555 ml 480 ml Output Total 800 ml 510 ml 700 ml Balance -247 ml 45 ml -220 ml Intake Oral 480 ml 520 ml 480 ml IV Total 73 ml 35 ml 0 ml Output Urine Total 800 ml 510 ml 700 ml # Bowel Movements 1 1 Physical Exam GENERAL: SKIN: Warm and dry. HEAD: Normocephalic. EYES: No scleral icterus. No injection or drainage. NECK: Supple, trachea midline. No JVD or lymphadenopathy. CARDIOVASCULAR: Regular rate and rhythm without murmurs, gallops, or rubs. RESPIRATORY: Breath sounds equal bilaterally. No accessory muscle use. GASTROINTESTINAL: Abdomen soft, non-tender, nondistended. MUSCULOSKELETAL: No cyanosis, or edema. BACK: Nontender without obvious deformity. No CVA tenderness. Laboratory Laboratory Tests Test 12/07/16 12/08/16 10:42 05:36 White Blood Count 6.4 TH/MM3 6.7 TH/MM3 Red Blood Count 3.39 MIL/MM3 3.49 MIL/MM3 Hemoglobin 9.0 GM/DL 9.2 GM/DL Hematocrit 28.9 % 30.0 % Mean Corpuscular Volume 85.2 FL 85.9 FL Mean Corpuscular Hemoglobin 26.5 PG 26.3 PG Mean Corpuscular Hemoglobin 31.1 % 30.7 % Concent Red Cell Distribution Width 17.8 % 17.8 % Platelet Count 181 TH/MM3 178 TH/MM3 Mean Platelet Volume 10.2 FL 10.6 FL Neutrophils (%) (Auto) 67.4 % 66.2 % Lymphocytes (%) (Auto) 19.3 % 19.6 % Monocytes (%) (Auto) 10.5 % 11.6 % Eosinophils (%) (Auto) 1.9 % 1.6 % Basophils (%) (Auto) 0.9 % 1.0 % Neutrophils # (Auto) 4.3 TH/MM3 4.5 TH/MM3 Lymphocytes # (Auto) 1.2 TH/MM3 1.3 TH/MM3 Monocytes # (Auto) 0.7 TH/MM3 0.8 TH/MM3 Eosinophils # (Auto) 0.1 TH/MM3 0.1 TH/MM3 Basophils # (Auto) 0.1 TH/MM3 0.1 TH/MM3 CBC Comment DIFF FINAL DIFF FINAL Differential Comment Sodium Level 138 MEQ/L 140 MEQ/L Potassium Level 4.1 MEQ/L 4.1 MEQ/L Chloride Level 99 MEQ/L 100 MEQ/L Carbon Dioxide Level 31.4 MEQ/L 31.6 MEQ/L Anion Gap 8 MEQ/L 8 MEQ/L Blood Urea Nitrogen 37 MG/DL 38 MG/DL Creatinine 1.74 MG/DL 2.00 MG/DL Estimat Glomerular Filtration 28 ML/MIN 24 ML/MIN Rate Random Glucose 149 MG/DL 141 MG/DL Calcium Level 9.0 MG/DL 9.0 MG/DL Assessment and Plan Problem List: (1) Coronary artery disease (2) CHF exacerbation (3) Afib (4) Cardiomyopathy (5) Diabetes mellitus Assessment and Plan 1.) Chf -suboptimally controlled due to lm cad, has been tachycardic and hypotensive, continue diuresis, f/u bnp in am, yuni held due to arf and hypotension; 2.) AFib - rate controlled on cardizem and lopressor, continue xarelto, 3.) wide complex tachycardia - consult Dr Atkinson 4.) CAD - fev=.3, not candidate for cabg per Dr Lora. continue heparin, consult palliative care, patient considering hospice 5.) Cardio - renal syndrome - scr =2.00 today baseline =1.79, f/u rec Dr Ch Problem Qualifiers (1) CHF exacerbation: Qualified Code: I50.23 - Acute on chronic systolic congestive heart failure (2) Diabetes mellitus: Arturo Murillo MD December 08, 2016 09:21
--- NOTE | 2016-12-08 16:56 | HHI.NPPN ---
Subjective General Problems: Anemia, Edema, Heart Disease Renal Failure: Chronic, Acute, Stage III History of Present Illness 81-year-old female with past medical history of hypertension, diabetes mellitus, ischemic heart disease, chronic kidney disease, atrial fibrillation, who came to the hospital because of increased swelling of the legs and worsening shortness of breath. I was called to see the patient because of elevated BUN and creatinine. The patient has creatinine of 1.7 on admission. Additional Remarks Patient is alert, seen in AM,sitting on the chair , no SOB. Review of Systems General Constitutional: Fatigue Respiratory Lungs: SOB, Cough, Wheeze Cardiovascular Cardiac: Chest Pain, WOODRUFF Objective Data Data 12/07/16 12/08/16 19:00 07:00 Intake Total 555 ml 480 ml Output Total 510 ml 700 ml Balance 45 ml -220 ml Intake Oral 520 ml 480 ml IV Total 35 ml 0 ml Output Urine Total 510 ml 700 ml # Bowel Movements 1 1 Vital Signs Date Time Temp Pulse Resp B/P Pulse Ox O2 Delivery O2 Flow Rate FiO2 12/08/16 15:15 97.3 90 16 95/60 98 12/08/16 15:00 73 12/08/16 14:26 68 12/08/16 13:19 86 12/08/16 12:00 102 12/08/16 12:00 97.6 80 20 94/55 98 12/08/16 11:00 89 12/08/16 10:00 96 12/08/16 09:00 100 12/08/16 08:00 90 12/08/16 07:20 100 Room Air 12/08/16 07:20 97.3 90 16 119/69 100 12/08/16 07:00 94 12/08/16 06:00 98 12/08/16 05:00 94 12/08/16 04:51 97.6 16 12/08/16 04:00 90 12/08/16 03:00 104 12/08/16 02:00 98 12/08/16 01:00 98 12/08/16 00:13 99 Nasal Cannula 2.00 12/08/16 00:00 110 12/08/16 00:00 97.9 110 18 115/75 98 12/07/16 23:00 100 12/07/16 22:30 105/76 12/07/16 22:00 112 12/07/16 21:00 100 12/07/16 20:00 100 12/07/16 20:00 97.9 86 18 99/64 99 12/07/16 19:00 87 12/07/16 18:00 74 12/07/16 17:00 98 -: 12/08/16 0536 12/08/16 0536 Physical Exam General Appearance: No Acute Distress, Comfortable Eyes Eye Exam: Pupils Equal Neck Neck Exam: Neck Supple Pulmonary Resp Exam: No Distress, Rhonchi, Sputum, Decreased Bases, Diminished Breath Sounds Cardiology CV Exam: Regular, Normal Sinus Rhythm Gastrointestinal/Abdomen GI Exam: Soft, Non-Tender, Bowel Sounds Present Extremeties Extremities Exam: Trace Edema Neurologic Neuro Exam: Alert, Awake, Oriented Psychiatric Psych Exam: Appropriate Responses Assessment/Plan Assessment Summary: NOEMI/Acute Renal Failure, Fluid/Volume Overload, CHF, Hypertension, CKD Stage III Problem List: (1) CHF exacerbation (2) Atrial fibrillation (3) Diabetes mellitus (4) Chronic systolic CHF (congestive heart failure) (5) Coronary artery disease (6) Acute worsening of stage 3 chronic kidney disease Plan Patient has been non oliguric. On Lasix, and KCl. Urine out put is better. Patient and family discussed with [facility] Since patient has multiple medical conditions, they decided to go for maximal medical therapy for now. Creatinine increase slightly, now 2.0. Continue Lasix, for D/C to Rehab, will need follow up with Nephrology, and adjust Lasix as needed. Problem Qualifiers (1) CHF exacerbation: Qualified Code: I50.23 - Acute on chronic systolic congestive heart failure (2) Diabetes mellitus: Viridiana Ch MD December 08, 2016 16:56
--- NOTE | 2016-12-08 21:53 | HHI.DS ---
Discharge Summary Admission Date November 25, 2016 at 12:57 Discharge Date: December 08, 2016 Admitting Diagnosis CHF exacerbation (1) CHF exacerbation ICD Code: I50.9 Diagnosis: Principal (2) Atrial fibrillation ICD Code: I48.91 Diagnosis: Principal (3) Diabetes mellitus ICD Code: E11.9 Diagnosis: Secondary (4) Right foot pain ICD Code: M79.671 Diagnosis: Principal (5) Acute worsening of stage 3 chronic kidney disease ICD Code: N18.3 Diagnosis: Principal (6) Coronary artery disease ICD Code: I25.10 Diagnosis: Secondary (7) Cardiomyopathy ICD Code: I42.9 Diagnosis: Principal Procedures cardiac cath Brief History - From Admission Ms. Sylvester is an 81-year-old female with a known medical history of atrial fibrillation status post pacemaker placement and on Xarelto, dyslipidemia, diabetes mellitus, hypertension and GERD who presented to the ED with complaints of worsening shortness of breath for several days and increasing bilateral lower extremity edema. Patient states that she had recently been treated with antibiotics for a UTI at the end of October and finished the prescription. Shortly after this on 11/17/16 she presented to [facility] ED for complaints of shoulder pain and increasing bilateral lower extremity edema. At that time, patient was not admitted and sent home same day. Patient states she has not followed up with her previous wallpaper consultant due to them not taking her type of insurance. Currently, patient is seen in room 1433, daughter at bedside. Patient states that shortness of breath has improved status post Lasix 40 mg IV x 1 in ED and being placed on 2L NC. Patient also denies any further urinary complaints since patient has finished antibiotic back in October. Denies any recent fever, chills, cough, shortness of breath, chest pain, nausea or vomiting. Denies any further shoulder pain. CBC/BMP: 12/08/16 0536 12/08/16 0536 Significant Findings Laboratory Tests Test 12/06/16 12/07/16 12/07/16 12/08/16 06:01 05:30 10:42 05:36 Red Blood Count 3.24 MIL/MM3 3.39 MIL/MM3 3.49 MIL/MM3 (4.00-5.30) (4.00-5.30) (4.00-5.30) Hemoglobin 8.8 GM/DL 9.0 GM/DL 9.2 GM/DL (11.6-15.3) (11.6-15.3) (11.6-15.3) Hematocrit 27.4 % 28.9 % 30.0 % (35.0-46.0) (35.0-46.0) (35.0-46.0) Red Cell Distribution Width 17.7 % 17.8 % 17.8 % (11.6-17.2) (11.6-17.2) (11.6-17.2) Activated Partial 45.3 SEC 47.2 SEC Thromboplast Time (24.3-30.1) (24.3-30.1) Blood Urea Nitrogen 36 MG/DL (7-18) 37 MG/DL (7-18) 38 MG/DL (7-18) Creatinine 1.74 MG/DL 1.74 MG/DL 2.00 MG/DL (0.50-1.00) (0.50-1.00) (0.50-1.00) Estimat Glomerular Filtration 28 ML/MIN (>89) 28 ML/MIN (>89) 24 ML/MIN (>89) Rate Random Glucose 110 MG/DL 149 MG/DL 141 MG/DL (74-106) (74-106) (74-106) Mean Corpuscular Hemoglobin 26.5 PG 26.3 PG (27.0-34.0) (27.0-34.0) Mean Corpuscular Hemoglobin 31.1 % 30.7 % Concent (32.0-36.0) (32.0-36.0) Monocytes (%) (Auto) 10.5 % 11.6 % (0.0-8.0) (0.0-8.0) Imaging Last Impressions Lower Extremity Ultrasound 12/04/16 0000 Signed Impressions: Service Date/Time: Sunday, December 04, 2016 15:23 - CONCLUSION: Normal examination. Slava Liu MD Carotid Artery Ultrasound 12/04/16 0000 Signed Impressions: Service Date/Time: Sunday, December 04, 2016 16:12 - CONCLUSION: No evidence of flow-limiting carotid stenosis. Slava Liu MD Renal Ultrasound 12/01/16 0000 Signed Impressions: Service Date/Time: Thursday, December 01, 2016 22:24 - CONCLUSION: 1. Atrophic kidneys. Mild thickening of the bladder wall of unknown etiology. Lex Uribe MD Chest X-Ray 11/29/16 0000 Signed Impressions: Service Date/Time: Tuesday, November 29, 2016 10:12 - CONCLUSION: 1. Cardiomegaly with pulmonary vascular engorgement. No infiltrates. 2. Tiny left effusion. Prem Noland Jr., MD Foot X-Ray 11/28/16 0000 Signed Impressions: Service Date/Time: Monday, November 28, 2016 13:05 - CONCLUSION: 1. No acute bony abnormality identified. Obed Hurtado MD PE at Discharge GENERAL: Well-nourished, well-developed patient, in no apparent distress on 2 L NC. CARDIOVASCULAR: Atrial fibrillation rhythm noted, controlled. No murmur appreciated. RESPIRATORY: no wheezing, GASTROINTESTINAL: Abdomen soft, non-tender, nondistended. No guarding. MUSCULOSKELETAL: swelling over the extremities is much improved, however there is swelling on the right foot, pitting, tender to palpation on the dorsal aspect over the metatarsal area, sensation is intact. she is able to move and wiggle her toes. NEUROLOGICAL: Awake and alert. Motor and sensory grossly within normal limits. Normal speech. Hospital Course 1. Acute exacerbation of chronic systolic congestive heart failure: Continue Lasix. Swelling has improved. Coronary artery disease, cardiomyopathy: Status post cardiac catheterization. Patient was found to have severe left main and three-vessel coronary artery disease. On xarelto. Appreciate cardiothoracic surgery recommendations. The patient is not felt to be a surgical candidate due to poor pulmonary function. Palliative care has been consulted. The patient would like to go to rehabilitation and then home. She and her family are considering hospice care. 2. Acute worsening of chronic kidney disease stage III: Creatinine remains elevated at 2.0. Monitor labs. Appreciate nephrology recommendations. Renal ultrasound report noted. f/u w nephrology as an outpatient. 3. Dyspnea, hypoxia: Secondary to CHF. Respiratory walk test showed no need for home oxygen on 11/29/16. 4. Diabetes mellitus type 2: Metformin on hold secondary to elevated creatinine. The patient and her family are considering hospice care, but at this time would like to pursue rehabilitation for strengthening. Pt Condition on Discharge: Stable Discharge Disposition: Discharge to SNF Discharge Time: > 30 minutes Discharge Instructions DIET: Follow Instructions for: Heart Healthy Diet, Diabetic Diet Activities you can perform: Regular-No Restrictions Follow up Referrals: Cardiology - Next Day with Arturo Murillo MD PCP Follow-up - 1 Week New Medications: Lisinopril (Lisinopril) 5 Mg Tab 5 MG PO DAILY Blood Pressure Management #30 Ref 0 TAB Potassium Chloride Microencaps (Potassium Chloride Microencaps) 20 Meq Tab 10 MEQ PO DAILY Electrolyte Replacement #30 Ref 0 TAB Continued Medications: Diltiazem ER 24 HR (Cartia Xt) 120 Mg Caper 120 MG PO DAILY #30 Ref [address] (Esomeprazole [address]) 40 Mg Capdr 40 MG PO DAILY #30 Ref 0 CAP Furosemide (Furosemide) 40 Mg Tab 40 MG PO DAILY #30 Ref 0 TAB Metoprolol Tartrate (Metoprolol Tartrate) 100 Mg Tab 100 MG PO BID #60 Ref 0 TAB Rivaroxaban (Xarelto) 15 Mg Tab 15 MG PO DAILY Blood Clot Prevention Ref 0 TAB Simvastatin (Simvastatin) 40 Mg Tab 40 MG PO HS Cholesterol Management #30 Ref 0 TAB Discontinued Medications: Metformin (Metformin) 500 Mg Tab 500 MG PO BIDPC With meals Blood Sugar Management #60 Ref 0 TAB Margy Juares MD December 08, 2016 21:53
== END 2016-12-08 16:34 | DRG 286 ==
LOC: NEPE 10:13 → NEDA 12:57 → OBSVTOIN 12:57 → N04A 14:38 → HCIS 12-01 12:00
PROVIDERS: ADMIT Hospitalist; ATTEND Hospitalist
PROC: B2111ZZ Fluoroscopy of Multiple Coronary Arteries using Low Osmolar Contrast (ICD-10-PCS; 2016-12-01)
PROC: B2151ZZ Fluoroscopy of Left Heart using Low Osmolar Contrast (ICD-10-PCS; 2016-12-01)
PROC: 4A023N8 Measurement of Cardiac Sampling and Pressure, Bilateral, Percutaneous Approach (ICD-10-PCS; principal; 2016-12-01 09:30)
DX: I13.0 Hypertensive heart and chronic kidney disease with heart failure and stage 1 through stage 4 chronic kidney disease, or unspecified chronic kidney disease (principal); I50.23 Acute on chronic systolic (congestive) heart failure; N17.9 Acute kidney failure, unspecified; E11.22 Type 2 diabetes mellitus with diabetic chronic kidney disease; I42.9 Cardiomyopathy, unspecified; I08.3 Combined rheumatic disorders of mitral, aortic and tricuspid valves; I48.2 Chronic atrial fibrillation; I25.118 Atherosclerotic heart disease of native coronary artery with other forms of angina pectoris; E78.5 Hyperlipidemia, unspecified; K21.9 Gastro-esophageal reflux disease without esophagitis; D50.9 Iron deficiency anemia, unspecified; R09.89 Other specified symptoms and signs involving the circulatory and respiratory systems; M10.9 Gout, unspecified; N18.3 Chronic kidney disease, stage 3 (moderate); J44.9 Chronic obstructive pulmonary disease, unspecified; M19.90 Unspecified osteoarthritis, unspecified site; R19.7 Diarrhea, unspecified; M79.671 Pain in right foot; Z51.5 Encounter for palliative care; Z66 Do not resuscitate; Z79.84 Long term (current) use of oral hypoglycemic drugs; Z79.01 Long term (current) use of anticoagulants; Z23 Encounter for immunization; Z87.891 Personal history of nicotine dependence; Z95.0 Presence of cardiac pacemaker
CPT/HCPCS: 36600; 71010; 73620; 76775; 80048; 80061; 81001; 82550; 82805; 82948; 83036; 83735; 83880; 84100; 84165; 84484; 85014; 85018; 85025; 85027; 85347; 85610; 85730; 86077; 86850; 86870; 86900; 86901; 86902; 86920; 86922; 87641; 90732; 93005; 93306; 93460; 93880; 93970; 93971; 93998; 94010; 94620; 96374; C1769; C1893; J1644; J1815; J1940; J3010; Q9967